=== PATIENT | female | born 1945 | race Caucasian/White ===

== ENCOUNTER 2016-05-14 06:45 | Day surgery (SDC) | payer MEDICARE, BC ==
[2016-05-13 08:30] VITALS: BMI 30.9
[2016-05-14 07:15] VITALS: RESP 20; TEMP 97.6
[2016-05-14] MEDS ORDERED: LACTATED RINGERS 1,000 ML IV ONE ×2 (07:19)
[2016-05-14 07:23] LABS: Glucose,Whole Blood 97 mg/dL (75-99)
[2016-05-14] MEDS ORDERED: fentaNYL (PF) 50 MCG/ML 2 ML AMP ONE (07:38)
[2016-05-14] MEDS ORDERED: MIDAZOLAM 2 MG/2 ML VIAL ONE (07:38)
[2016-05-14] MEDS ORDERED: PROPOFOL 10 MG/ML 20 ML VIAL IV ONE (07:38)
[2016-05-14] MEDS ORDERED: LIDOCAINE 1% INJ 10MG/ML (20 ML MDV) ONE (07:38)
--- NOTE | 2016-05-14 07:51 | P.GSHP ---
History of Present Illness H&P Date: 05/14/16 Chief Complaint: Dysphagia, history of colonic polyps, colitis This a 71-year-old female who presents today for EGD and colonoscopy. Patient has had some intermittent problems with dysphagia. She is also had a recent CAT scan which shows sigmoid colon thickening and some mild diverticulosis. She 's had issues with colonic polyps in the past. - Constitutional Constitutional: Reports as per HPI Past Medical History Past Medical History: Cancer, Diabetes Mellitus, GERD/Reflux, Hyperlipidemia, Hypertension History of Any Multi-Drug Resistant Organisms: None Reported Past Surgical History: Breast Surgery, Cholecystectomy, Heart Catheterization, Orthopedic Surgery Additional Past Surgical History / Comment(s): Bilateral knee replacement, cyst remoaval, [place] surgery, tubal and ovary removed, clear hear catherterization , breast CA with bilateral mastectomy, D&C with cyro for pre cancereous cells, palpable lymph node in supraclavicular region. Past Anesthesia/Blood Transfusion Reactions: Postoperative Nausea & Vomiting ( PONV) Past Psychological History: No Psychological Hx Reported Smoking Status: Never smoker Past Alcohol Use History: Rare Past Drug Use History: None Reported - Past Family History Mother Family Medical History: Cancer, Hyperlipidemia Medications and Allergies Home Medications Medication Instructions Recorded Confirmed Type Aspirin 81 mg PO DAILY 02/26/15 05/13/16 History Cholecalciferol [Vitamin D3] 2,000 unit PO DAILY@1200 02/26/15 05/13/16 History Cyanocobalamin [Vitamin B-12] 500 mcg PO DAILY@1200 02/26/15 05/13/16 History Furosemide [Lasix] 20 mg PO DIRECTED 02/26/15 05/13/16 History Mirabegron [Myrbetriq] 50 mg PO DAILY 02/26/15 05/13/16 History Multivitamins, Thera [Theragran] 1 each PO DAILY@1200 02/26/15 05/13/16 History Omeprazole [PriLOSEC] 20 mg PO AC-BRKFST 02/26/15 05/13/16 History Potassium Chloride [Klor-Con 20] 20 meq PO WEEKLY 02/26/15 05/13/16 History Simvastatin [Zocor] 20 mg PO HS 02/26/15 05/13/16 History Solifenacin Succinate [Vesicare] 10 mg PO DAILY 02/26/15 05/13/16 History amLODIPine [Norvasc] 10 mg PO DAILY 02/26/15 05/13/16 History metFORMIN HCL [Glucophage] 500 mg PO BID 02/26/15 05/13/16 History rOPINIRole HCL [Requip] 3 mg PO HS 02/26/15 05/13/16 History Allergies Allergy/AdvReac Type Severity Reaction Status Date / Time acetaminophen [From Lortab] AdvReac Severe Nausea & Verified 05/13/16 08:24 Vomiting hydrocodone bitartrate AdvReac Severe Nausea & Verified 05/13/16 08:24 [From Lortab] Vomiting Surgical - Exam Vital Signs Temp Pulse Resp BP Pulse Ox 97.6 F 93 20 132/80 94 L 05/14/16 07:13 05/14/16 07:13 05/14/16 07:13 05/14/16 07:13 05/14/16 07:13 - General well developed, no distress - Eyes PERRL - ENT normal pinna - Neck no masses - Respiratory normal expansion - Cardiovascular Rhythm: regular - Abdomen Abdomen: soft, non tender Assessment and Plan Plan: Dysphagia Colitis on CAT scan We'll perform EGD and colonoscopy.
--- NOTE | 2016-05-14 08:07 | P.OP ---
Date of Procedure: 05/14/16 Preoperative Diagnosis: Dysphagia Colitis Postoperative Diagnosis: Mild antral gastritis Mild diverticulosis No evidence of colitis Procedure(s) Performed: EGD Colonoscopy Anesthesia: MAC Surgeon: Channing Hahn Pathology: other (Antrum) Condition: stable Disposition: PACU Description of Procedure: The patient's placed on the endoscopy table in the lateral position. She received IV sedation. The gastroscope some placed oropharynx and passed into the esophagus and into the stomach. The scope was then placed through the pylorus. The first and second portion of the duodenum appeared normal. Scope was then brought back the antrum this. Mildly inflamed. A biopsies was performed. The scope was unretroflexed and the remainder of the stomach appeared normal. The GE junction was at 47 is. There is no evidence of hiatal hernia. The patient a previous fundal plication which appeared appropriate position. The distal esophagus appeared normal. The proximal esophagusAppeared Normal. Scope was withdrawn for patient. Next, digital rectal exam was performed which revealed no abnormalities. The flexible colonoscope was then placed patient anus and passed throughout the entire colon. The ileocecal valve was visualized. The cecum, ascending and transverse colon appeared normal. Scope was brought back into the descending and sigmoid colon and there was a few scattered diverticula. There is no evidence of colitis. The sigmoid colon appeared normal. The scope was then brought back the rectum and this appeared normal. Scope was withdrawn for patient.
[2016-05-14 08:32] VITALS: BP 113/67; PULSE 73
== END 2016-05-14 08:40 | disposition home or self-care (01) ==
LOC: ORWHC2ENDO 06:45
PROVIDERS: ATTEND Surgery
DX: K29.50 Unspecified chronic gastritis without bleeding (principal); K57.30 Diverticulosis of large intestine without perforation or abscess without bleeding; Z86.010 Personal history of colon polyps; E11.9 Type 2 diabetes mellitus without complications; Z79.84 Long term (current) use of oral hypoglycemic drugs; K21.9 Gastro-esophageal reflux disease without esophagitis; E78.5 Hyperlipidemia, unspecified; I10 Essential (primary) hypertension; Z79.82 Long term (current) use of aspirin; Z79.899 Other long term (current) drug therapy; Z88.5 Allergy status to narcotic agent
CPT/HCPCS: 88305; 88342; 45378; 43239; J2250; J2001; J3010; J2704; 99153

== ENCOUNTER 2018-12-10 12:24 | Day surgery (SDC) | payer MEDICARE ==
[2018-12-09 08:32] VITALS: BMI 31.6
[~2018-12-10 12:24] MED LIST: DEXAMETHASONE SOD PHOSPHATE 10 MG/ML 1 ML VIAL IV ONE; LACTATED RINGERS 1,000 ML IV SCH; LIDOCAINE 1% 20 ML VIAL (10MG/ML) FOR IV START INTRADERMA PRN; ONDANSETRON 4 MG/2 ML VIAL IVP ONE
[2018-12-10 12:40] VITALS: RESP 16; TEMP 97.1
[2018-12-10] MEDS ORDERED: LIDOCAINE 1% INJ 10MG/ML (20 ML MDV) ONE (13:33)
[2018-12-10] MEDS ORDERED: MIDAZOLAM 2 MG/2 ML VIAL ONE (13:33)
[2018-12-10] MEDS ORDERED: fentaNYL (PF) 50 MCG/ML 2 ML AMP ONE (13:33)
[2018-12-10] MEDS ORDERED: PROPOFOL 10 MG/ML 20 ML VIAL IV ONE (13:33)
--- NOTE | 2018-12-10 13:58 | P.PCN ---
Date of Procedure: 12/10/18 Procedure(s) Performed: Brief history: Patient is a pleasant 73-year-old white female, scheduled for an elective upper endoscopy as well as colonoscopy as a part of evaluation of long-standing history of GERD and abdominal pain for the last 2 months duration. Procedure performed: Esophagogastroduodenoscopy with biopsy Colonoscopy and snare polypectomy Preoperative diagnosis: GERD Right lower quadrant abdominal pain of 2 months duration Anesthesia: MAC Procedure: After informed consent was obtained from the patient was brought into the endoscopy unit and IV sedation was administered by anesthesia under continuous monitoring. Initially upper endoscopy was done. The Olympus GF 160 video endoscope was inserted inserted into the mouth and esophagus intubated without any difficulty and was gradually advanced into the stomach and duodenum and carefully examined. The bulb and second part of the duodenum appeared normal. The scope was then withdrawn into the stomach adequately insufflated with air and upon careful examination the antrum and body, cardia and fundus appeared normal. There were multiple small gastric polyps noted in the body the stomach which were biopsied. scope was then withdrawn into the esophagus. The GE junction was located at 40 cm to the incisors. It appeared regular with no erythema erosions or ulcerations. Rest of the esophagus appeared normal. Patient tolerated the procedure well. At this time the patient continued to remain sedation. Initial digital rectal examination was normal. Olympus CF 160 video colonoscope was then inserted into the rectum and gradually advanced to the cecum without any difficulty. Careful examination was performed as the scope was gradually being withdrawn. The prep was excellent. The cecum, ascending colon, transverse colon, appeared normal. The descending colon there was a 5 mm sessile polyp removed by snare polypectomy. In the sigmoid: There were 2 polyps measuring 5 mm in size both of which were removed by snare polypectomy. The left sided diverticulosis seen. Rest of the descending colon, sigmoid colon and rectum appeared normal. Retroflexion was performed in the rectum and no lesions were noted. Patient tolerated the procedure well. Impression: 1. Upper endoscopy revealed multiple small gastric polyps status post biopsy 2. Colonoscopy revealed: a) 5 mm descending colon polyp status post polypectomy b) 5 mm 2; polyp status post polypectomy c) scattered sigmoidal diverticulosis Recommendations: Findings of this examination were discussed with the patient as well as her family. She was advised to follow with the biopsy results. She was advised to follow with the biopsy results. If the biopsy shows an adenoma she can have a repeat colonoscopy in 5 years
[2018-12-10] MEDS ORDERED: LACTATED RINGERS 1,000 ML IV ONE (14:00)
[2018-12-10 14:23] VITALS: BP 120/78; PULSE 74
== END 2018-12-10 14:42 | disposition home or self-care (01) ==
LOC: ORWHC2ENDO 12:24
PROVIDERS: ATTEND Internal Medicine Gastroenterology
DX: K31.7 Polyp of stomach and duodenum (principal); K57.30 Diverticulosis of large intestine without perforation or abscess without bleeding; D12.4 Benign neoplasm of descending colon; K21.9 Gastro-esophageal reflux disease without esophagitis; D12.5 Benign neoplasm of sigmoid colon; Z88.5 Allergy status to narcotic agent; I10 Essential (primary) hypertension; E78.5 Hyperlipidemia, unspecified; Z85.3 Personal history of malignant neoplasm of breast; E11.9 Type 2 diabetes mellitus without complications; Z79.82 Long term (current) use of aspirin; Z79.899 Other long term (current) drug therapy; Z90.13 Acquired absence of bilateral breasts and nipples
CPT/HCPCS: 88305; 45385; 43239; J2250; J2001; J3010; J2704

== ENCOUNTER → 2019-01-03 | Outpatient (CLI) | payer MEDICARE ==
--- NOTE | 2019-01-03 22:19 | MR ---
EXAMINATION TYPE: MR lumbar spine wo con DATE OF EXAM: 01/03/2019 COMPARISON: MR 07/08/2010 HISTORY: LBP, rt side x 3 mos, no trauma/surgery TECHNIQUE: Multiplanar, multisequence images of the lumbar spine were acquired. L1-L2: Circumferential posterior disc bulge causes mild anterior mass effect on the thecal sac. No si gnificant central stenosis. No significant encroachment. L2-L3: Posterior broad-based disc bulge causes mild anterior mass effect on the thecal sac. There is facet arthropathy with hypertrophy of ligamentum flavum causing posterior lateral mass effect on the thecal sac. Circumferential extension endplate disc complex causes foraminal encroachment greater on the right than on the left. L3-L4: Facet arthropathy is noted. Posterior disc bulge causes mild anterior mass effect on the theca l sac. Circumferential extension of endplate disc complex encroaches somewhat on the foramina bilater ally. L4-L5: Listhesis contributes to cause some moderate spinal stenosis with facet arthropathy causing a trefoil appearance of the thecal sac. Listhesis contributes to cause bilateral foraminal encroachment . There is a posterior disc bulge causing mild anterior mass effect on the thecal sac. L5-S1: Facet arthropathy is noted. Minimal posterior disc bulge causes slight anterior contact with t he thecal sac and possibly proximal S1 nerve roots left greater than right. Circumferential extension endplate disc complex encroaches on the foramina right greater than left. Lumbar segments are intact. No paraspinal masses are identified. Conus medullaris has a normal appe arance. There is a minimal grade 1 anterolisthesis L4-5 which is progressed in the interval. Multilev el spondylosis is present with endplate discogenic marrow signal changes. Some mild loss of disc heig ht signal greatest at L2-3, L1-2 compatible disc desiccation and degenerative disc disease. Probable parapelvic cysts within the left kidney again noted, cortical cyst posterior aspect exophytic locatio n midpole right kidney measuring 3 cm. IMPRESSION: Degenerative disc disease, multilevel foraminal encroachment. There is some mild to moderate spinal s tenosis L4-5.
== END ==
LOC: RADMRIMAIN 14:49
PROVIDERS: ATTEND Family Medicine
DX: M48.061 Spinal stenosis, lumbar region without neurogenic claudication (principal); M51.36 Other intervertebral disc degeneration, lumbar region
CPT/HCPCS: 72148

== ENCOUNTER → 2021-05-03 | Outpatient (CLI) | payer MEDICARE ==
--- NOTE | 2021-05-03 10:17 | MR ---
EXAMINATION TYPE: MR shoulder LT wo con DATE OF EXAM: 05/03/2021 COMPARISON: X-ray 04/23/2021 HISTORY: Left shoulder pain TECHNIQUE: Multiplanar, multisequence imaging of the left shoulder is performed without contrast. FINDINGS: There is diffuse abnormal signal involving the distal margin of the supraspinatus and infra spinatus tendons compatible with complete through thickness tears and retraction to the level near th e AC joint. Subscapularis tendon is somewhat limited but grossly probably be intact. Note is made the re does appear to be atrophic change of the rotator cuff musculature. The humeral head is high riding in position and there is a area of marrow edema involving the greater tuberosity likely in the basis of either previous impaction dislocation or chronic repetitive reacti ve edema. Correlate clinically. Arthropathy of the glenohumeral joint with a small joint effusion not ed. Grossly the inferior glenohumeral ligament appears to be intact. Severe arthropathy of the AC joints impingement rotator cuff musculature. Biceps tendon is well situa uday within bicipital groove and appears to be intact and within the rotator interval extending to the biceps anchor. However, there is increased fluid surrounding the tendon as well as intrasubstance si gnal seen within the rotator interval compatible with tendinosis. Bony labrum grossly intact by non a rthrogram technique. IMPRESSION: 1. Complete through thickness tear with retraction of the supraspinatus and infraspinatus tendons. No te is made there is no significant atrophic change of the rotator cuff musculature. 2. Bicipital tendinosis. 3. Impingement secondary to AC joint arthropathy.
== END | disposition home or self-care (01) ==
LOC: RADMRIMAIN 04-26 19:42
PROVIDERS: ATTEND Orthopaedic Surgery
DX: M75.112 Incomplete rotator cuff tear or rupture of left shoulder, not specified as traumatic (principal); M67.814 Other specified disorders of tendon, left shoulder; M19.012 Primary osteoarthritis, left shoulder

== ENCOUNTER → 2021-06-13 | Day surgery (SDC) | payer MEDICARE ==
--- NOTE | 2021-06-12 20:04 | HP ---
HISTORY AND PHYSICAL DATE OF SURGERY: 06/13/2021 Minerva Stone is a 76-year-old patient seen with progressive left shoulder pain. We discussed options regarding treatment. She elected to proceed with left shoulder arthroscopy. Consent was obtained. Medical clearance was provided by Dr. Evette Landis. PAST MEDICAL HISTORY: Hypertension, hyperlipidemia, nxr-[id number]-qhlhodseh diabetes, gastroesophageal reflux disease. PAST SURGICAL HISTORY: Appendectomy, cholecystectomy, total knee arthroplasty, mastectomy, herniorrhaphy. DAILY MEDICATIONS: Aspirin, atorvastatin, losartan, metformin, metoprolol, omeprazole, vitamins. ALLERGIES: NONE. SOCIAL HISTORY: She denies current tobacco use. PHYSICAL EVALUATION OF LEFT SHOULDER: Flexion 20 degrees. Abduction is 20 degrees. External rotation is minus 20 degrees with pain and weakness. Tenderness along the anterolateral acromion and rotator cuff insertion. Impingement is positive at 40. Drop-arm sign positive. Distal neurovascular exam intact. Radiographs of the left shoulder revealed a type 3 acromion, acromioclavicular joint osteoarthritis and cystic changes of the greater tuberosity. A left shoulder MRI revealed a retracted rotator cuff tendon tear along with impingement and acromioclavicular joint osteoarthritis. IMPRESSION: 1. Left shoulder impingement with retracted rotator cuff tendon tear. 2. Left shoulder acromioclavicular joint osteoarthritis. 3. Hypertension. 4. Hyperlipidemia. 5. Byu-umffaxi-devzftzhn diabetes. PLAN: Left shoulder arthroscopy, subacromial decompression, possible arthroscopic rotator cuff repair, Skyler procedure and debridement. MMODL / IJN: [id number] /
[~2021-06-13] MED LIST changes: -DEXAMETHASONE SOD PHOSPHATE 10 MG/ML 1 ML VIAL IV ONE; +DEXAMETHASONE SOD PHOSPHATE 4 MG/ML 1 ML VIAL IV ONE; +HYDROmorphone 0.5 MG/0.5 ML SYRINGE IVP PRN; +LIDOCAINE 1% (10MG/ML) FOR IV START INTRADERMA PRN; -LIDOCAINE 1% 20 ML VIAL (10MG/ML) FOR IV START INTRADERMA PRN; +LIDOCAINE 1% INJ 10MG/ML (20 ML MDV) ONE; +MIDAZOLAM 2 MG/2 ML VIAL IV PRN; +PHENYLEPHRINE-0.9% NACL SYG 1,000 MCG/10 ML SYRINGE ONE; +PROPOFOL 10 MG/ML 20 ML VIAL IV ONE; +ROPIVACAINE 5 MG/ML 30 ML VIAL ONE; +SUCCINYLCHOLINE CHLORIDE 100 MG/5 ML SYR IV ONE; +diphenhydrAMINE 50 MG/ML 1 ML VIAL ONE; +fentaNYL (PF) 50 MCG/ML 2 ML AMP IV PRN
[2021-06-13 06:48] LABS: Glucose,Whole Blood 115 mg/dL (75-99)
[2021-06-13 07:27] VITALS: RESP 16
--- NOTE | 2021-06-13 09:29 | P.OP ---
Date of Procedure: 06/13/21 Preoperative Diagnosis: Left shoulder impingement Postoperative Diagnosis: 1. Left shoulder massive retracted rotator cuff tendon tear 2. Left shoulder acromioclavicular joint osteoarthritis 3. Left shoulder impingement 4. Left shoulder partial long head biceps tendon tear Procedure(s) Performed: 1. Left shoulder arthroscopic rotator cuff repair 2. Left shoulder arthroscopic Skyler procedure 3. Left shoulder arthroscopic subacromial decompression 4. Left shoulder arthroscopic biceps tenotomy Implants: 35.5 Arthrex swivel lock anchors 14.75 Arthrex a lock anchor Anesthesia: GETA, regional (Interscalene block) Surgeon: Calvin Weber Hair Worker #1: Haider Horowitz Estimated Blood Loss (ml): 11 Pathology: none sent Condition: stable Disposition: PACU Indications for Procedure: 76-year-old patient seen with progressive left shoulder pain. After having treatment options discussed, she elected to proceed with arthroscopy. Operative Findings: See description of procedure Description of Procedure: Patient underwent an interscalene block by department of anesthesia. The patient was then taken to the operative suite. The patient underwent a general anesthetic by the department of anesthesia. The patient was placed into a lateral position and secured. There was appropriate padding of the bony prominence. Left shoulder was then prepped and draped in normal sterile orthopedic fashion. We placed the extremity in 10 pounds of longitudinal traction. A posterior incision was now made for a posterior working portal site. The trocar and cannula were inserted into the glenohumeral joint. Arthroscopy was initiated. Spinal needle was now inserted anteriorly, to ascertain the anterior working portal site. An incision was now made in that area, a trocar was inserted followed by a probe. There was superficial fraying of the superior and anterior labrum. There were grade 2/3 chondromalacia changes diffusely about the glenohumeral joint without significant osteochondral tearing present. There was partial tearing and hyperemia of the long head biceps tendon. There was an obvious massive rotator cuff tendon tear I could clearly visualized. I performed an arthroscopic biceps tenotomy. I debrided the superficial labral tearing down to stable labral tissue. The residual labrum was probed and it was found to be stable. Instruments were now removed from glenohumeral joint. Utilizing the posterior working portal site, the trocar and cannula were inserted into the subacromial space. Arthroscopy initiated. I made an incision 2 fingerbreadths lateral to the acromion. I introduced my trocar followed by my ArthroCare ablator. I now began ablating thick subacromial bursal tissue, which exposed the undersurface of the anterior acromion. There was diminished subacromial space. There was a very prominent anterior acromion. A motorized bur was introduced and a subacromial decompression was performed. I also excised some osteophytes off the inferior aspect of the distal clavicle. The AC joint was visualized and noted to be fairly arthritic. The motorized bur was introduced in the anterior portal site and a Skyler procedure was performed without difficulty, decompressing the AC joint nicely. I turned my attention to the rotator cuff. There was a 44 .5 cm rotator cuff tear. The tendon tear was retracted but I was able to pull it over the footprint. I debrided the margins getting down to stable tendon tissue. I introduced my motorized bur and abraded the footprint area, getting some petechial bleeding. I now made an accessory portal site off the lateral aspect of the acromion. I punched 2 holes medial for medial row fixation with the assistance of Rj HERNANDEZ carefully tapping the punch with a mallet as I held the punch and the camera. I now introduced both anchors into the pre-punched holes and Rj HERNANDEZ tapped them with the mallet as I held anchors and the camera. Rj HERNANDEZ now screwed the anchors in place a while I held the anchor guide and camera. All 8 limbs of suture were now passed through good bites of rotator cuff tendon. I passed one extra everted mattress suture posteriorly were I anticipated potential dogears. I now punched 2 holes for lateral row fixation again I held the punch and camera while Rj HERNANDEZ used a mallet to tap in the punch. We now passed sutures through both anchors and individually I introduced the anchors into the pre-punch holes I held the anchor guide in position with one hand holding the camera with the other hand while Rj HERNANDEZ tensioned the sutures and screwed in the anchors one at a time. The patient's bone seemed very soft for both the medial and lateral anchors but I did feel we had overall good fixation of all 4 anchors. All residual suture limbs were now clipped. We had good compression of the tendon along the entire footprint. Instruments now removed from the portal sites. All portal sites were approximated with nylon suture. Sterile dressings were applied followed by a shoulder immobilizer. Haider HERNANDEZ assisted in this complex case. The patient was awakened, transferred to a bed, and taken to recovery in stable condition.
[2021-06-13 09:35] VITALS: TEMP 97.2
--- NOTE | 2021-06-13 10:35 | P.ANPRN ---
Procedure Note - Anesthesia - Nerve Block Performed Left Interscalene Single Time Out Performed: Yes (7050) Date of Procedure: 06/13/21 Procedure Start Time: 07:06 Procedure Stop Time: 07:11 Location of Patient: PreOp Indication: Acute Post-Operative Pain, Requested by Surgeon Specifically requested for management of pain by DrSiena: Calvin Weber Sedation Type: Sedate with meaningful contact maintained Preparation: Sterile Prep Position: Supine Catheter: None Needle Types: Pajunk Needle Gauge: 21 Ultrasound used to visualize needle placement: Yes Ultrasound used to observe medication spread: Yes Injectate: 0.5% Ropivacaine (see comment for volume) (30cc) Blood Aspirated: No Pain Paresthesia on Injection Noted: No Resistance on Injection: Normal Image Stored and Saved: Yes Events: Uneventful and Well Tolerated
[2021-06-13 10:55] VITALS: BP 121/63; PULSE 81
== END | disposition home or self-care (01) ==
LOC: OR 06:00
PROVIDERS: ATTEND Orthopaedic Surgery
DX: M75.42 Impingement syndrome of left shoulder (principal); M19.012 Primary osteoarthritis, left shoulder; M75.102 Unspecified rotator cuff tear or rupture of left shoulder, not specified as traumatic; S46.112A Strain of muscle, fascia and tendon of long head of biceps, left arm, initial encounter; M94.212 Chondromalacia, left shoulder; X58.XXXA Exposure to other specified factors, initial encounter; I10 Essential (primary) hypertension; E78.5 Hyperlipidemia, unspecified; E11.9 Type 2 diabetes mellitus without complications; K21.9 Gastro-esophageal reflux disease without esophagitis; N32.81 Overactive bladder; M51.16 Intervertebral disc disorders with radiculopathy, lumbar region; M48.061 Spinal stenosis, lumbar region without neurogenic claudication; G25.81 Restless legs syndrome; E87.6 Hypokalemia; Z79.82 Long term (current) use of aspirin; Z79.899 Other long term (current) drug therapy; Z79.84 Long term (current) use of oral hypoglycemic drugs; Z79.810 Long term (current) use of selective estrogen receptor modulators (SERMs); Z88.5 Allergy status to narcotic agent; Z85.3 Personal history of malignant neoplasm of breast; Z86.010 Personal history of colon polyps; Z90.49 Acquired absence of other specified parts of digestive tract; Z96.659 Presence of unspecified artificial knee joint; Z90.10 Acquired absence of unspecified breast and nipple; Z98.890 Other specified postprocedural states; Z97.2 Presence of dental prosthetic device (complete) (partial); Z82.49 Family history of ischemic heart disease and other diseases of the circulatory system
CPT/HCPCS: 64415; 76942; 29822; 29827; 29826; 29824; C1713 ×3; C1894; J2250; J1200; J1100; J0690; J2405; J2001; J3010; J2795; J2370; J0330; J2704

== ENCOUNTER → 2021-11-04 | Outpatient (CLI) | payer MEDICARE ==
--- NOTE | 2021-11-05 03:24 | MR ---
EXAMINATION TYPE: MR shoulder LT wo con DATE OF EXAM: 11/04/2021 COMPARISON: 05/03/2021 HISTORY: Left shoulder pain, prior surgery 06-13-21. Multiplanar multiecho imaging of the left shoulder with no contrast. There is moderate hypertrophic osteoarthritis of the glenohumeral joint. There is spurring of the hum eral head. There is moderate shoulder joint effusion. The subscapularis tendon shows some mild thicke taylor. There is some fluid around the biceps tendon. Biceps tendon appears intact. There is large rota tor cuff tear with retraction of the supraspinatus tendon. There is subacromial joint space narrowing . The infraspinatus tendon is intact. There is some fluid around the subscapularis tendon. There are pins in the humeral head. No fracture seen. The AC joint is intact. There is some spurring at the AC joint. IMPRESSION: Large rotator cuff tear with retraction of the supraspinatus tendon. Large shoulder joint effusion. H ypertrophic moderate osteoarthritis. Overall no significant change compared to previous exam.
== END | disposition home or self-care (01) ==
LOC: RADMRIMAIN 13:03
PROVIDERS: ATTEND Orthopaedic Surgery
DX: M19.012 Primary osteoarthritis, left shoulder (principal); M75.112 Incomplete rotator cuff tear or rupture of left shoulder, not specified as traumatic

== ENCOUNTER → 2022-09-22 | Outpatient (CLI) | payer MEDICARE ==
[2022-09-22 10:56] LABS: African American GFR (CKD) 61 (>60 ml/min/1.73 sqM); Blood Urea Nitrogen 22 mg/dL (7-17); Non-African American GFR(CKD) 53 (>60 ml/min/1.73 sqM)
--- NOTE | 2022-09-22 11:29 | CT ---
EXAMINATION TYPE: CT chest w con DATE OF EXAM: 09/22/2022 COMPARISON: 03/01/15 HISTORY: nodules CT DLP: 245.6 mGycm Automated exposure control for dose reduction was used. CONTRAST: CT scan of the chest is performed with IV Contrast, patient injected with 80cc mL of Isovue 300. FINDINGS: LUNGS: 8 mm right lower lobe pulmonary nodule image 44 sequence 4 is slightly smaller in size with pr ior measurement of 9 mm. And 6 mm left lower lobe pulmonary nodule image 43 sequence 4 is present pre viously with prior measurement of 5.3 mm. Mild scattered subpleural fibrosis. No new infiltrate or vo lume loss. No pleural effusion. MEDIASTINUM: There are no greater than 1 cm hilar or mediastinal lymph nodes. No pericardial effusi on is seen. Thoracic aorta is of normal caliber. The heart is not enlarged. UPPER ABDOMEN: No significant abnormality appreciated. OTHER: No additional significant abnormality is seen. IMPRESSION: 1. Nonspecific pulmonary nodularity. Stability over a 2 year timeframe should be documented radiograp hically.
== END | disposition home or self-care (01) ==
LOC: RADCTMAIN 09:59
PROVIDERS: ATTEND Family Medicine
DX: R91.8 Other nonspecific abnormal finding of lung field (principal)
CPT/HCPCS: 82565; 84520; 71260; 36415; Q9967

== ENCOUNTER 2022-10-21 18:33 | Emergency (ER) | payer MEDICARE ==
[2022-10-21] MEDS ORDERED: ACETAMINOPHEN TAB 325 MG TAB PO STA (19:12)
[2022-10-21 19:27] LABS: Basophils % (A) 0 %; Eosinophils # (A) 0.1 k/uL (0-0.7); Eosinophils % (A) 1 %; HCT 33.4 % (34.0-46.0); HGB 11.4 gm/dL (11.4-16.0); Lymphocytes # (A) 0.7 k/uL (1.0-4.8); Lymphocytes % (A) 13 %; MCH 34.3 pg (25.0-35.0); MCHC 34.2 g/dL (31.0-37.0); MCV 100.3 fL (80.0-100.0); Mean Platelet Volume 7.9; Monocytes # (A) 0.4 k/uL (0-1.0); Monocytes % (A) 6 %; Neutrophils # (A) 4.6 k/uL (1.3-7.7); Neutrophils % (A) 79 %; Platelet Count 135 k/uL (150-450); RBC 3.33 m/uL (3.80-5.40); RDW 12.8 % (11.5-15.5); WBC 5.8 k/uL (3.8-10.6)
[2022-10-21] MEDS: SODIUM CHLORIDE 0.9% 500 ML 500 ML IV SCH ×3 (19:35→20:45)
[2022-10-21 19:37] LABS: ALT 15 U/L (4-34); AST 18 U/L (14-36); African American GFR (CKD) 49 (>60 ml/min/1.73 sqM); Albumin 3.5 g/dL (3.5-5.0); Alkaline Phosphatase 128 U/L (38-126); Anion Gap 7 mmol/L; Blood Urea Nitrogen 23 mg/dL (7-17); Carbon Dioxide 27 mmol/L (22-30); Chloride 102 mmol/L (98-107); Glucose 144 mg/dL (74-99); Non-African American GFR(CKD) 42 (>60 ml/min/1.73 sqM); Sodium 136 mmol/L (137-145); Total Bilirubin 1.3 mg/dL (0.2-1.3); Total Protein 6.2 g/dL (6.3-8.2)
[2022-10-21 19:53] LABS: Partial Thromboplastin Time 23.8 sec (22.0-30.0); Prothrombin Time 10.7 sec (9.0-12.0)
--- NOTE | 2022-10-21 19:58 | XR ---
EXAMINATION TYPE: XR chest 1V portable DATE OF EXAM: 10/21/2022 7:50 PM COMPARISON: No recent prior. TECHNIQUE: XR chest 1V portable Frontal view of the chest. CLINICAL INDICATION:Female, 77 years old with history of Fever; FINDINGS: Lungs/Pleura: There is no evidence of pleural effusion, focal consolidation, or pneumothorax. Pulmonary vascularity: Unremarkable. Heart/mediastinum: Cardiomediastinal silhouette is unremarkable. Musculoskeletal: No acute osseous pathology. Left shoulder arthroplasty changes appear intact. IMPRESSION: No acute cardiopulmonary disease/process.
[2022-10-21 20:41] LABS: Appearance,Urine Cloudy (Clear); Bilirubin,Urine Negative (Negative); Blood,Urine Small (Negative); Color,Urine Light Yellow; Glucose,Urine (UA) Negative (Negative); Ketones,Urine 1+ (Negative); Leukocyte Esterase,Urine Large (Negative); Nitrite,Urine Positive (Negative); Protein,Urine Trace (Negative); Specific Gravity,Urine 1.012 (1.001-1.035); Urobilinogen,Urine <2.0 mg/dL (<2.0)
[2022-10-21 20:45] VITALS: TEMP 98.9
[2022-10-21] MEDS ORDERED: cefTRIAXone IN SWFI 1,000 MG/10 ML SYRINGE IVP STA (21:05)
--- NOTE | 2022-10-21 21:15 | ED ---
General Adult HPI - General Chief complaint: Altered Mental Status Stated complaint: AMS Time Seen by Provider: 10/21/22 18:38 Source: patient, EMS Mode of arrival: EMS - History of Present Illness Initial comments: This is a 77-year-old female with a past medical history including hypertension presents emergency Department with her family for an episode of altered mental status. It is reported the patient has been diagnosed with a UTI and was started on ciprofloxacin today as she felt as if her symptoms were not improving. After the initial dose, the patient had an episode at home with her family were she was noted to be speaking in nonsensical statements and not acting herself. The patient did return to her baseline however due to this episode, the patient was brought into the emergency department for evaluation. The patient was ANO 4 on my evaluation and neck appointment any acute pain or distress. The patient did state that she did have dysuria and increased urinary frequency consistent with her previous UTI. - Related Data Home Medications Medication Instructions Recorded Confirmed Aspirin 81 mg PO HS 02/26/15 09/05/21 Cholecalciferol [Vitamin D3] 5,000 unit PO DAILY 02/26/15 09/05/21 Omeprazole [PriLOSEC] 20 mg PO AC-BRKFST 02/26/15 09/05/21 rOPINIRole HCL [Requip] 3 mg PO HS 02/26/15 09/05/21 Atorvastatin [Lipitor] 10 mg PO DAILY 06/10/21 09/05/21 Losartan-Hctz 50-12.5 mg [Hyzaar 25 mg PO QAM 06/10/21 09/05/21 50-12.5] Metoprolol Succinate (ER) [Toprol 75 mg PO QAM 06/10/21 09/05/21 Xl] Zinc 50 mg PO DAILY 06/10/21 09/05/21 Fluticasone Propionate [Flovent 2 spray INHALATION DAILY 08/23/21 09/05/21 Diskus] Magnesium Carb,Citrate,Oxide 300 mg PO DAILY 08/23/21 09/05/21 [Magnesium Complex] Pantoprazole Sodium [Protonix] 40 mg PO DAILY 08/23/21 09/05/21 Previous Rx's Medication Instructions Recorded Cephalexin [Keflex] 500 mg PO Q6HR 1 Days #20 cap 10/21/22 Allergies Allergy/AdvReac Type Severity Reaction Status Date / Time hydrocodone bitartrate AdvReac Severe Nausea & Verified 09/05/21 10:39 [From Lortab] Vomiting Review of Systems ROS Statement: Those systems with pertinent positive or pertinent negative responses have been documented in the HPI. ROS Other: All systems not noted in ROS Statement are negative. Past Medical History Past Medical History: Blood Disorder, Cancer, Diabetes Mellitus, GERD/Reflux, GI Bleed, Hyperlipidemia, Hypertension Additional Past Medical History / Comment(s): Recent ear and sinus infection, finishing antibiotic 06/11/21. Occasional loose stools, hx of breast cancer with chemo and bilateral mastectomy 2002, palpable lymph node neck area doctor is watching. ANEMIA. BLOOD TRANSFUSION. History of Any Multi-Drug Resistant Organisms: None Reported Past Surgical History: Breast Surgery, Cholecystectomy, Heart Catheterization, Hernia Repair, Joint Replacement, Orthopedic Surgery Additional Past Surgical History / Comment(s): Bilateral knee replacements, cyst removal, [place] surgery, tubal and ovary removed, bilateral mastectomy, D&C with cyro for pre cancerous cells, varicose vein procedure. Past Anesthesia/Blood Transfusion Reactions: Postoperative Nausea & Vomiting (PONV) Additional Past Anesthesia/Blood Transfusion Reaction / Comment(s): Has had blood transfusion with no reaction, slow to wake up and PONV. Past Psychological History: No Psychological Hx Reported Smoking Status: Never smoker - Past Family History Sister(s) Family Medical History: Deep Vein Thrombosis (DVT) Mother Additional Family Medical History / Comment(s): Heart problems. General Exam Limitations: no limitations General appearance: alert, in no apparent distress, obese Head exam: Present: atraumatic, normocephalic, normal inspection Eye exam: Present: normal appearance, PERRL Pupils: Present: normal accommodation ENT exam: Present: normal exam, normal oropharynx, mucous membranes moist Neck exam: Present: normal inspection, full ROM Respiratory exam: Present: normal lung sounds bilaterally Cardiovascular Exam: Present: regular rate, normal rhythm, normal heart sounds GI/Abdominal exam: Present: soft, normal bowel sounds Extremities exam: Present: normal inspection, full ROM Back exam: Present: normal inspection, full ROM Neurological exam: Present: alert, oriented X3, CN II-XII intact Psychiatric exam: Present: normal affect, normal mood Skin exam: Present: warm, dry Course Vital Signs 10/21/22 10/21/22 10/21/22 18:35 18:57 20:45 Temperature 103.5 F H 98.9 F Pulse Rate 98 92 Respiratory 19 18 Rate Blood Pressure 147/74 155/78 O2 Sat by Pulse 95 Oximetry EKG Findings - EKG Comments: EKG Findings:: An EKG was obtained and was interpreted by myself showing a rate of 92, AR interval 116, QRS duration of 90 and QTC of 404. This EKG showed a normal sinus rhythm with no ST segment elevation or depression noted. Medical Decision Making - Medical Decision Making Was pt. sent in by a medical professional or institution (DAVID Shepard, DELINQUENCY COUNSELOR, urgent care, hospital, or senior living...) When possible be specific @ -No Did you speak to anyone other than the patient for history (EMS, parent, family, police, friend...)? What history was obtained from this source @ -Yes, patient's daughter and were at the bedside and did sit the patient did have an episode of altered mental status today. Did you review nursing and triage notes (agree or disagree)? Why? @ -I reviewed and agree with nursing and triage notes Were old charts reviewed (outside hosp., previous admission, EMS record, old EKG, old radiological studies, urgent care reports/EKG's, senior living records)? Report findings @ -No old charts were reviewed Differential Diagnosis (chest pain, altered mental status, abdominal pain women, abdominal pain men, vaginal bleeding, weakness, fever, dyspnea, syncope, headache, dizziness, GI bleed, back pain, seizure, CVA, palpatations, mental health)? @ -Continued UTI, altered mental status secondary to UTI, sepsis EKG interpreted by me (3pts min.). @ -As above X-rays interpreted by me (1pt min.). @ -None done CT interpreted by me (1pt min.). @ -None done U/S interpreted by me (1pt. min.). @ -None done What testing was considered but not performed or refused? (CT, X-rays, U/S, l abs)? Why? @ -None What meds were considered but not given or refused? Why? @ -None Did you discuss the management of the patient with other professionals (professionals i.e. DAVID Shepard, DELINQUENCY COUNSELOR, lab, RT, psych nurse, social services specialist, food services manager, teacher, credit products officer, clinical case manager)? Give summary @ -No Was smoking cessation discussed for >3mins.? @ -No Was critical care preformed (if so, how long)? @ -No Were there social determinants of health that impacted care today? How? (Homelessness, low income, unemployed, alcoholism, drug addiction, transportation, low edu. Level, literacy, decrease access to med. care, long term, rehab)? @ -No Was there de-escalation of care discussed even if they declined (Discuss DNR or withdrawal of care, Hospice)? DNR status @ -No What co-morbidities impacted this encounter? (DM, HTN, Smoking, COPD, CAD, Cance r, CVA, ARF, Chemo, Hep., AIDS, mental health diagnosis, sleep apnea, morbid obesity)? @ -Hypertension, previous UTI Was patient admitted / discharged? Hospital course, mention meds given and route, prescriptions, significant lab abnormalities, going to OR and other pertinent info. @ -The patient was seen and evaluated in the emergency department. Physical exam, the patient was resting in bed without any acute distress. Vital signs admission showed a temperature of 103.5F otherwise vital signs within normal limits. Due to this, sepsis workup was obtained however the patient had a continued UTI causing a fever without known sepsis. The patient was initially started on Macrobid but was switched to ciprofloxacin today by her primary care physician however due to the patient's continued symptoms was told to stop the ciprofloxacin and will instead be given a dose of Rocephin in the emergency department and a prescription for Keflex to be taken at home. The urine was cultured and the patient and her family were told that they would be getting a call regarding these results if there was sensitivity for the Keflex. The patient did continue to remain stable, without any further symptoms. The patient was able to tolerate by mouth. The patient's vital signs did improve and was stable for discharge home. The patient was agreeable to this plan and all depressions were answered appropriate. The patient was discharged home in stable condition with her family. Undiagnosed new problem with uncertain prognosis? @ -No Drug Therapy requiring intensive monitoring for toxicity (Heparin, Nitro, Insulin, Cardizem)? @ -No Were any procedures done? @ -No Diagnosis/symptom? @ -UTI Acute, or Chronic, or Acute on Chronic? @ -Acute Uncomplicated (without systemic symptoms) or Complicated (systemic symptoms)? @ -Uncomplicated Side effects of treatment? @ -No Exacerbation, Progression, or Severe Exacerbation? @ -No Poses a threat to life or bodily function? How? (Chest pain, [place], [place], pneumonia, PE, COPD, DKA, ARF, appy, cholecystitis, CVA, Diverticulitis, Homicidal, Suicidal, threat to staff... and all critical care pts) @ -No - Lab Data Result diagrams: 10/21/22 19:18 10/21/22 19:18 Lab Results 10/21/22 10/21/22 10/21/22 Range/Units 19:18 19:18 19:18 WBC 5.8 (3.8-10.6) k/uL RBC 3.33 L (3.80-5.40) m/uL Hgb 11.4 (11.4-16.0) gm/dL Hct 33.4 L (34.0-46.0) % MCV 100.3 H (80.0-100.0) fL MCH 34.3 (25.0-35.0) pg MCHC 34.2 (31.0-37.0) g/dL RDW 12.8 (11.5-15.5) % Plt Count 135 L (150-450) k/uL MPV 7.9 Neutrophils % 79 % Lymphocytes % 13 % Monocytes % 6 % Eosinophils % 1 % Basophils % 0 % Neutrophils # 4.6 (1.3-7.7) k/uL Lymphocytes # 0.7 L (1.0-4.8) k/uL Monocytes # 0.4 (0-1.0) k/uL Eosinophils # 0.1 (0-0.7) k/uL Basophils # 0.0 (0-0.2) k/uL PT 10.7 (9.0-12.0) sec INR 1.0 (<1.2) APTT 23.8 (22.0-30.0) sec Sodium 136 L (137-145) mmol/L Potassium 4.0 (3.5-5.1) mmol/L Chloride 102 (98-107) mmol/L Carbon Dioxide 27 (22-30) mmol/L Anion Gap 7 mmol/L BUN 23 H (7-17) mg/dL Creatinine 1.24 H (0.52-1.04) mg/dL Est GFR (CKD-EPI)AfAm 49 (>60 ml/min/1.73 sqM) Est GFR (CKD-EPI)NonAf 42 (>60 ml/min/1.73 sqM) Glucose 144 H (74-99) mg/dL Plasma Lactic Acid Jamsh[place] (0.7-2.0) mmol/L Calcium 9.0 (8.4-10.2) mg/dL Total Bilirubin 1.3 (0.2-1.3) mg/dL AST 18 (14-36) U/L ALT 15 (4-34) U/L Alkaline Phosphatase 128 H (38-126) U/L Total Protein 6.2 L (6.3-8.2) g/dL Albumin 3.5 (3.5-5.0) g/dL Urine Color Urine Appearance (Clear) Urine pH (5.0-8.0) Ur Specific [place] (1.001-1.035) Urine Protein (Negative) Urine Glucose (UA) (Negative) Urine Ketones (Negative) Urine Blood (Negative) Urine Nitrite (Negative) Urine Bilirubin (Negative) Urine Urobilinogen (<2.0) mg/dL Ur Leukocyte Esterase (Negative) Influenza Type A (PCR) (Not Detectd) Influenza Type B (PCR) (Not Detectd) RSV (PCR) (Not Detectd) SARS-CoV-2 (PCR) (Not Detectd) 10/21/22 10/21/22 10/21/22 Range/Units 19:18 19:40 19:40 WBC (3.8-10.6) k/uL RBC (3.80-5.40) m/uL Hgb (11.4-16.0) gm/dL Hct (34.0-46.0) % MCV (80.0-100.0) fL MCH (25.0-35.0) pg MCHC (31.0-37.0) g/dL RDW (11.5-15.5) % Plt Count (150-450) k/uL MPV Neutrophils % % Lymphocytes % % Monocytes % % Eosinophils % % Basophils % % Neutrophils # (1.3-7.7) k/uL Lymphocytes # (1.0-4.8) k/uL Monocytes # (0-1.0) k/uL Eosinophils # (0-0.7) k/uL Basophils # (0-0.2) k/uL PT (9.0-12.0) sec INR (<1.2) APTT (22.0-30.0) sec Sodium (137-145) mmol/L Potassium (3.5-5.1) mmol/L Chloride (98-107) mmol/L Carbon Dioxide (22-30) mmol/L Anion Gap mmol/L BUN (7-17) mg/dL Creatinine (0.52-1.04) mg/dL Est GFR (CKD-EPI)AfAm (>60 ml/min/1.73 sqM) Est GFR (CKD-EPI)NonAf (>60 ml/min/1.73 sqM) Glucose (74-99) mg/dL Plasma Lactic Acid Jamshid 1.0 (0.7-2.0) mmol/L Calcium (8.4-10.2) mg/dL Total Bilirubin (0.2-1.3) mg/dL AST (14-36) U/L ALT (4-34) U/L Alkaline Phosphatase (38-126) U/L Total Protein (6.3-8.2) g/dL Albumin (3.5-5.0) g/dL Urine Color Light Yellow Urine Appearance Cloudy H (Clear) Urine pH 6.0 (5.0-8.0) Ur Specific [place] 1.012 (1.001-1.035) Urine Protein Trace H (Negative) Urine Glucose (UA) Negative (Negative) Urine Ketones 1+ H (Negative) Urine Blood Small H (Negative) Urine Nitrite Positive H (Negative) Urine Bilirubin Negative (Negative) Urine Urobilinogen <2.0 (<2.0) mg/dL Ur Leukocyte Esterase Large H (Negative) Influenza Type A (PCR) Not Detected (Not Detectd) Influenza Type B (PCR) Not Detected (Not Detectd) RSV (PCR) Not Detected (Not Detectd) SARS-CoV-2 (PCR) Not Detected (Not Detectd) Disposition Clinical Impression: UTI (urinary tract infection) Disposition: HOME SELF-CARE Condition: Stable Instructions (If sedation given, give patient instructions): Urinary Tract Infection in Women (DC) Prescriptions: Cephalexin [Keflex] 500 mg PO Q6HR 1 Days #20 cap Is patient prescribed a controlled substance at d/c from ED?: No Referrals: Evette Landis DO [Primary Care Provider] - 1-2 days Time of Disposition: 20:30
[2022-10-21 21:24] VITALS: BP 135/59; PULSE 75; RESP 16
[2022-10-21 23:30] LABS: WBC,Urine 100 /hpf (0-5)
[2022-10-21 23:31] LABS: Bacteria,Urine Rare /hpf
== END 2022-10-21 21:45 | disposition home or self-care (01) ==
LOC: EC 18:33
DX: N39.0 Urinary tract infection, site not specified (principal); K21.9 Gastro-esophageal reflux disease without esophagitis; E11.9 Type 2 diabetes mellitus without complications; E78.5 Hyperlipidemia, unspecified; I10 Essential (primary) hypertension; Z88.5 Allergy status to narcotic agent; Z79.82 Long term (current) use of aspirin; Z79.51 Long term (current) use of inhaled steroids; Z79.899 Other long term (current) drug therapy; Z20.822 Contact with and (suspected) exposure to COVID-19
CPT/HCPCS: 36415; 93005; 80053; 83605; 85025; 85610; 85730; 81001; 87040; 87086; 87636; 71045; 99285; 96374; 96361; J0696

== ENCOUNTER 2024-04-30 17:02 | Observation (INO) | payer MEDICARE ==
--- NOTE | 2024-04-30 17:51 | ED ---
Chest Pain HPI - General Chief Complaint: Chest Pain Stated Complaint: chest pain Time Seen by Provider: 04/30/24 17:12 Source: patient Mode of arrival: ambulatory Limitations: no limitations - History of Present Illness Initial Comments: 79-year-old female with past medical history of SVT, hypertension, emergency department with rapid heart rate. States that for the past 2 days she has had intermittent rapid heart rate with associated shortness of breath. Patient does admit to a history of SVT. Patient also admits to a history of CHF. She currently does not take any Lasix. Patient denies history of coronary disease. No fevers, chills or cough. Patient does not take any blood thinners. No calf pain or swelling. No other alleviating, precipitating modifying factors - Related Data Home Medications Medication Instructions Recorded Confirmed Aspirin 81 mg PO HS 02/26/15 04/30/24 rOPINIRole HCL [Requip] 3 mg PO HS 02/26/15 04/30/24 Atorvastatin [Lipitor] 10 mg PO DAILY 06/10/21 04/30/24 Zinc 50 mg PO DAILY 06/10/21 04/30/24 Pantoprazole Sodium [Protonix] 40 mg PO HS 08/23/21 04/30/24 Cholecalciferol [Vitamin D3 (25 25 mcg PO DAILY 04/30/24 04/30/24 Mcg = 1000 Iu)] Fluticasone Nasal [place] [Flonase 2 spray EA NOSTRIL DAILY 04/30/24 04/30/24 Nasal [place]] Magnesium Oxide [Mag-Oxide] 200 mg PO HS 04/30/24 04/30/24 Meclizine [Antivert] 25 mg PO TID PRN 04/30/24 04/30/24 Metoprolol Succinate (ER) [Toprol 50 mg PO DAILY 04/30/24 04/30/24 XL] Tamsulosin [Flomax] 0.4 mg PO HS 04/30/24 04/30/24 Vibegron [Gemtesa] 75 mg PO DAILY 04/30/24 05/02/24 metFORMIN HCL 500 mg PO HS 04/30/24 05/01/24 Previous Rx's Medication Instructions Recorded Flecainide [Tambocor] 50 mg PO Q12HR #60 tab 05/03/24 Losartan [Cozaar] 50 mg PO DAILY #30 tab 05/03/24 Allergies Allergy/AdvReac Type Severity Reaction Status Date / Time hydrocodone bitartrate AdvReac Severe Nausea & Verified 04/30/24 19:43 [From Lortab] Vomiting Review of Systems ROS Statement: Those systems with pertinent positive or pertinent negative responses have been documented in the HPI. ROS Other: All systems not noted in ROS Statement are negative. Past Medical History Past Medical History: Blood Disorder, Cancer, Diabetes Mellitus, GERD/Reflux, GI Bleed, Hyperlipidemia, Hypertension Additional Past Medical History / Comment(s): Recent ear and sinus infection, finishing antibiotic 06/11/21. Occasional loose stools, hx of breast cancer with chemo and bilateral mastectomy 2002, palpable lymph node neck area doctor is watching. ANEMIA. BLOOD TRANSFUSION. History of Any Multi-Drug Resistant Organisms: None Reported Past Surgical History: Breast Surgery, Cholecystectomy, Heart Catheterization, Hernia Repair, Joint Replacement, Orthopedic Surgery Additional Past Surgical History / Comment(s): Bilateral knee replacements, cyst removal, [place] surgery, tubal and ovary removed, bilateral mastectomy, D&C with cyro for pre cancerous cells, varicose vein procedure. Past Anesthesia/Blood Transfusion Reactions: Postoperative Nausea & Vomiting (PONV) Additional Past Anesthesia/Blood Transfusion Reaction / Comment(s): Has had blood transfusion with no reaction, slow to wake up and PONV. Past Psychological History: No Psychological Hx Reported Smoking Status: Never smoker Past Alcohol Use History: Rare Past Drug Use History: None Reported - Past Family History Sister(s) Family Medical History: Deep Vein Thrombosis (DVT) Mother Additional Family Medical History / Comment(s): Heart problems. General Exam Limitations: no limitations General appearance: alert, in no apparent distress Head exam: Present: atraumatic, normocephalic, normal inspection Eye exam: Present: normal appearance, PERRL, EOMI. Absent: scleral icterus, conjunctival injection, periorbital swelling ENT exam: Present: normal exam, mucous membranes moist Neck exam: Present: normal inspection. Absent: tenderness, meningismus, lymphadenopathy Respiratory exam: Present: normal lung sounds bilaterally. Absent: respiratory distress, wheezes, rales, rhonchi, stridor Cardiovascular Exam: Present: regular rate, normal rhythm, normal heart sounds. Absent: systolic murmur, diastolic murmur, rubs, gallop, clicks GI/Abdominal exam: Present: soft, normal bowel sounds. Absent: distended, tenderness, guarding, rebound, rigid Extremities exam: Present: normal inspection, full ROM, normal capillary refill. Absent: tenderness, pedal edema, joint swelling, calf tenderness Back exam: Present: normal inspection Neurological exam: Present: alert, oriented X3, CN II-XII intact Psychiatric exam: Present: normal affect, normal mood Skin exam: Present: warm, dry, intact, normal color. Absent: rash Course Vital Signs 04/30/24 04/30/24 04/30/24 17:05 19:21 19:56 Temperature 98.9 F Pulse Rate 79 77 73 Pulse Rate [ Pulse Oximetery ] Respiratory 20 16 16 Rate Blood Pressure 172/81 192/88 193/76 Blood Pressure [Right Arm] O2 Sat by Pulse 96 98 98 Oximetry 04/30/24 04/30/24 04/30/24 20:00 20:31 20:39 Temperature 97.9 F 98.4 F Pulse Rate 72 Pulse Rate [ 72 Pulse Oximetery ] Respiratory 18 16 Rate Blood Pressure 169/72 Blood Pressure 166/82 [Right Arm] O2 Sat by Pulse 100 96 Oximetry Chest Pain MDM - MDM Was pt. sent in by a medical professional or institution (, PA, INK MAKER, urgent care, hospital, or skilled nursing...) When possible be specific @ -No Did you speak to anyone other than the patient for history (EMS, parent, family, police, friend...)? What history was obtained from this source @ -Spoke with family for history Did you review nursing and triage notes (agree or disagree)? Why? @ -I reviewed and agree with nursing and triage notes Were old charts reviewed (outside hosp., previous admission, EMS record, old EKG, old radiological studies, urgent care reports/EKG's, skilled nursing records)? Report findings @ -No old charts were reviewed Differential Diagnosis (chest pain, altered mental status, abdominal pain women, abdominal pain men, vaginal bleeding, weakness, fever, dyspnea, syncope, heada miranda, dizziness, GI bleed, back pain, seizure, CVA, palpatations, mental health, musculoskeletal)? @ -Differential Chest Pain: Stable Angina, Unstable Angina, STEMI, NSTEMI Aortic Dissection, Pneumothorax, Musculoskeletal, Esophageal Spasm GERD, Cholecystitis, Pancreatitis, Zoster, this is not meant to be an all-inclusive list. EKG interpreted by me (3pts min.). @ -Yes and demonstrates sinus rhythm with a rate of 69. CA interval 172. QRS 93. QTc of 428. No acute ST segment elevations or depressions X-rays interpreted by me (1pt min.). @ -S and demonstrates no acute process CT interpreted by me (1pt min.). @ -None done U/S interpreted by me (1pt. min.). @ -None done What testing was considered but not performed or refused? (CT, X-rays, U/S, labs)? Why? @ -None What meds were considered but not given or refused? Why? @ -None Did you discuss the management of the patient with other professionals (professionals i.e. , PA, INK MAKER, lab, RT, psych nurse, social media project manager, robotic toy inventor, teacher, retirement officer, field nurse case manager)? Give summary @ -Spoke with Sofya from [facility] for admission Was smoking cessation discussed for >3mins.? @ -No Was critical care preformed (if so, how long)? @ -No Were there social determinants of health that impacted care today? How? (Homelessness, low income, unemployed, alcoholism, drug addiction, transportation, low edu. Level, literacy, decrease access to med. care, group home, rehab)? @ -No Was there de-escalation of care discussed even if they declined (Discuss DNR or withdrawal of care, Hospice)? DNR status @ -No What co-morbidities impacted this encounter? (DM, HTN, Smoking, COPD, CAD, Cancer, CVA, ARF, Chemo, Hep., AIDS, mental health diagnosis, sleep apnea, morbid obesity)? @ -SVT, congestive heart failure Was patient admitted / discharged? Hospital course, mention meds given and route, prescriptions, significant lab abnormalities, going to OR and other pertinent info. @ -Upon arrival patient seen and evaluated in bed 28. Thorough history and physical exam was performed. Patient placed on continuous pulse ox and cardiac monitoring. Twelve-lead EKG is obtained. Laboratory studies are conducted. Chest x-ray was performed. Results are discussed with patient. I feel the patient would benefit from overnight cardiac monitoring as well as monitoring of her troponins. Patient was agreeable to this. Spoke with Sofya from [facility] for the admission Undiagnosed new problem with uncertain prognosis? @ -No Drug Therapy requiring intensive monitoring for toxicity (Heparin, Nitro, Insulin, Cardizem)? @ -No Were any procedures done? @ -No Diagnosis/symptom? @ -Acute palpitations, acute chest pain, history of SVT Acute, or Chronic, or Acute on Chronic? @ -Acute Uncomplicated (without systemic symptoms) or Complicated (systemic symptoms)? @ -Complicated Side effects of treatment? @ -No Exacerbation, Progression, or Severe Exacerbation? @ -No Poses a threat to life or bodily function? How? (Chest pain, [place], [place], pneumonia, PE, COPD, DKA, ARF, appy, cholecystitis, CVA, Diverticulitis, Homicidal, Suicidal, threat to staff... and all critical care pts) @ -No Disposition Clinical Impression: Chest pain, Palpitations, Hx of supraventricular tachycardia Disposition: ADMITTED IP TO THIS [facility] Condition: Stable Is patient prescribed a controlled substance at d/c from ED?: No Time of Disposition: 19:22 Decision to Admit Reason: Admit from EC Decision Date: 04/30/24 Decision Time: 19:22
[2024-04-30 18:05] LABS: Basophils % (A) 0 %; Eosinophils # (A) 0.2 k/uL (0-0.7); Eosinophils % (A) 3 %; HCT 36.7 % (34.0-46.0); HGB 11.8 gm/dL (11.4-16.0); Hypochromasia Slight; Lymphocytes # (A) 2.5 k/uL (1.0-4.8); Lymphocytes % (A) 43 %; MCH 32.6 pg (25.0-35.0); MCHC 32.1 g/dL (31.0-37.0); MCV 101.5 fL (80.0-100.0); Macrocytosis Slight; Mean Platelet Volume 7.5; Monocytes # (A) 0.3 k/uL (0-1.0); Monocytes % (A) 6 %; Neutrophils # (A) 2.7 k/uL (1.3-7.7); Neutrophils % (A) 46 %; Platelet Count 223 k/uL (150-450); RBC 3.62 m/uL (3.80-5.40); RDW 13.3 % (11.5-15.5); WBC 5.8 k/uL (3.8-10.6)
[2024-04-30 18:13] LABS: Partial Thromboplastin Time 22.9 sec (22.0-30.0); Prothrombin Time 11.4 sec (10.0-12.5)
[2024-04-30 18:14] LABS: Potassium 4.4 mmol/L (3.5-5.1)
[2024-04-30 18:15] LABS: ALT 19 U/L (4-34); AST 24 U/L (14-36); African American GFR (CKD) 54 (>60 ml/min/1.73 sqM); Albumin 4.1 g/dL (3.5-5.0); Alkaline Phosphatase 117 U/L (38-126); Anion Gap 9 mmol/L; Blood Urea Nitrogen 28 mg/dL (7-17); Carbon Dioxide 26 mmol/L (22-30); Chloride 105 mmol/L (98-107); Glucose 143 mg/dL (74-99); Magnesium 1.8 mg/dL (1.6-2.3); Non-African American GFR(CKD) 47 (>60 ml/min/1.73 sqM); Sodium 140 mmol/L (137-145); Total Bilirubin 0.9 mg/dL (0.2-1.3); Total Protein 6.7 g/dL (6.3-8.2)
[2024-04-30 18:23] LABS: NT-Pro-B-Type Natriuretic Pept 1330 pg/mL
--- NOTE | 2024-04-30 18:28 | XR ---
EXAMINATION TYPE: XR chest 2V DATE OF EXAM: 04/30/2024 6:02 PM COMPARISON: Chest radiograph 10/21/2022. CLINICAL INDICATION: Female, 79 years old with history of Chest Pain; [facility] TECHNIQUE: XR chest 2V Frontal and lateral views of the chest. FINDINGS: Lungs/Pleura: There is no evidence of pleural effusion, focal consolidation, or pneumothorax. Asymme tric elevation of the right hemidiaphragm. Pulmonary vascularity: Unremarkable. Heart/mediastinum: Cardiomediastinal silhouette is unremarkable. Musculoskeletal: No acute osseous pathology. Left shoulder arthroplasty. Other findings: None IMPRESSION: No acute cardiopulmonary disease/process. [facility], , 04/30/2024 6:26 PM
[2024-04-30] MEDS ORDERED: NALOXONE 0.4 MG/ML 1 ML VIAL IV PRN (19:22)
[2024-04-30] MEDS: FUROSEMIDE 10 MG/ML 4 ML VIAL IV STA (19:32)
[2024-04-30] MEDS: LABETALOL 5 MG/ML VIAL MDV IVP STA (20:07)
[2024-04-30] MEDS ORDERED: MECLIZINE 25 MG TAB PO PRN (21:11)
[2024-04-30] MEDS ORDERED: DEXTROSE 50% SYRINGE 50 ML IVP PRN ×2 (21:13)
[2024-04-30] MEDS: LOSARTAN 50 MG TAB PO SCH (21:40)
[2024-04-30] MEDS: TAMSULOSIN 0.4 MG CAP.ER.24H PO SCH (21:40)
[2024-05-01 05:42] LABS: Glucose,Whole Blood 114 mg/dL (70-110)
[2024-05-01] MEDS: INSULIN ASPART (NovoLOG) 100 UNIT/ML VIAL SQ SCH (05:57)
[2024-05-01] MEDS: PANTOPRAZOLE 40 MG TABLET PO SCH (06:22)
[2024-05-01] MEDS: ATORVASTATIN 10 MG TAB PO SCH (07:35)
[2024-05-01] MEDS: METOPROLOL SUCCINATE (ER) 50 MG TAB.ER.24H PO SCH (07:35)
[2024-05-01] MEDS: FUROSEMIDE 20 MG TAB PO SCH (07:36)
[2024-05-01] MEDS: CHOLECALCIFEROL 25 MCG (1000 IU) TABLET PO SCH (07:36)
[2024-05-01] MEDS: FLUTICASONE NASAL 50MCG/SPRAY 16GM BTL EA NOSTRIL SCH (07:36)
[2024-05-01 11:12] LABS: Basophils # (A) 0.02 X 10*3/uL (0.00-0.10); Basophils % (A) 0.3 %; Eosinophils # (A) 0.23 X 10*3/uL (0.04-0.35); Eosinophils % (A) 3.5 %; HCT 37.9 % (37.2-46.3); HGB 11.5 g/dL (12.0-15.0); Lymphocytes # (A) 2.25 X 10*3/uL (0.90-5.00); Lymphocytes % (A) 34.7 %; MCH 31.3 pg (27.0-32.0); MCHC 30.3 g/dL (32.0-37.0); MCV 103.3 FL (80.0-97.0); Mean Platelet Volume 10.2 FL (9.5-12.2); Monocytes # (A) 0.63 X 10*3/uL (0.20-1.00); Monocytes % (A) 9.7 %; NRBC Per 100 WBC 0 X 10*3/uL (0.00-0.01); Neutrophils # (A) 3.34 X 10*3/uL (1.80-7.70); Neutrophils % (A) 51.5 %; Platelet Count 217 X 10*3/uL (140-440); RBC 3.67 X 10*6/uL (4.10-5.20); RDW 13.6 % (11.5-14.5); WBC 6.49 X 10*3/uL (4.50-10.00)
[2024-05-01 11:18] LABS: BUN/Creat Ratio 23.92 Ratio (12.00-20.00); Blood Urea Nitrogen 28.7 mg/dL (9.0-27.0); Glucose 140 mg/dL (70-110)
[2024-05-01 11:19] LABS: Calcium 9.8 mg/dL (8.7-10.3); Carbon Dioxide 25.9 mmol/L (21.6-31.8); Chloride 105 mmol/L (96-109); Potassium 3.8 mmol/L (3.5-5.5); Sodium 144 mmol/L (135-145)
[2024-05-01 12:26] LABS: Glucose,Whole Blood 127 mg/dL (70-110)
[2024-05-01 17:19] LABS: Glucose,Whole Blood 91 mg/dL (70-110)
--- NOTE | 2024-05-01 17:45 | P.CRDCN ---
History of Present Illness Consult date: 05/01/24 History of present illness: The patient is a pleasant 79-year-old female patient with a past medical history significant for diabetes and hypertension and dyslipidemia and history of SVT as well as history of heart failure of unknown etiology, presented to the hospital complaining of palpitations/heart racing. She was in her usual state of health till few days ago when she started experiencing intermittent episodes of palpitation/heart racing with no associated dizziness or lightheadedness or presyncope or syncope or any anginal chest pain or chest discomfort or shortness of breath. She presented to the hospital for further evaluation. She underwent an EKG which showed sinus mechanism. She was experiencing intermittent episode of palpitation in the hospital and the telemetry tracing showed narrow complex tachycardia likely consistent with SVT. She is known to have SVT and she has been on Toprol-XL at 50 mg p.o. daily and she has been compliant with this. In the past she was on 100 mg p.o. daily but that was lowered to 50 mg p.o. daily according to her about few years ago. The last time she had episode of SVT was about 2 years ago. The troponin was checked and came in to be unremarkable with the chest x-ray did not show any acute abnormalities. SH came in to be unremarkable as well. The physical examination is remarkable for regular rhythm with a significant systolic murmur at the right and left upper sternal border as well as apical area with decrease in the intensity of S2. Assessment Intermittent episode of narrow complex tachycardia consistent with SVT Palpitations/heart racing likely secondary to SVT Sleep apnea has been compliant in using the CPAP machine Significant systolic murmur on examination Multiple comorbid conditions including diabetes and hypertension and dyslipidemia and heart failure Plan Increase the dose of beta-carla with Toprol-XL to 75 mg p.o. daily Lowered the dose of losartan in the light of marginally low blood pressure Obtain an echocardiogram with Doppler Follow-up with the patient Past Medical History Past Medical History: Blood Disorder, Cancer, Heart Failure, Diabetes Mellitus, GERD/Reflux, GI Bleed, Hyperlipidemia, Hypertension, Pulmonary Embolus (PE), Sleep Apnea/CPAP/BIPAP, Supraventricular Tachycardia (SVT) Additional Past Medical History / Comment(s): ANEMIA. BLOOD TRANSFUSION. lung nodule being monitored since 2016. Vertigo. History of Any Multi-Drug Resistant Organisms: None Reported Past Surgical History: Breast Surgery, Cholecystectomy, Heart Catheterization, Hernia Repair, Joint Replacement, Orthopedic Surgery Additional Past Surgical History / Comment(s): Bilateral knee replacements, cyst removal, [place] surgery, tubal and ovary removed, bilateral mastectomy, D&C with cyro for pre cancerous cells, varicose vein procedure. Left shoulder repair X2. Past Anesthesia/Blood Transfusion Reactions: Postoperative Nausea & Vomiting (PONV) Additional Past Anesthesia/Blood Transfusion Reaction / Comment(s): Has had blood transfusion with no reaction, slow to wake up and PONV. Past Psychological History: No Psychological Hx Reported Smoking Status: Never smoker Past Alcohol Use History: Rare Past Drug Use History: None Reported - Past Family History Sister(s) Family Medical History: Deep Vein Thrombosis (DVT) Mother Additional Family Medical History / Comment(s): Heart problems. Medications and Allergies Home Medications Medication Instructions Recorded Confirmed Type Aspirin 81 mg PO HS 02/26/15 04/30/24 History rOPINIRole HCL [Requip] 3 mg PO HS 02/26/15 04/30/24 History Atorvastatin [Lipitor] 10 mg PO DAILY 06/10/21 04/30/24 History Zinc 50 mg PO DAILY 06/10/21 04/30/24 History Pantoprazole Sodium [Protonix] 40 mg PO HS 08/23/21 04/30/24 History Cholecalciferol [Vitamin D3 (25 25 mcg PO DAILY 04/30/24 04/30/24 History Mcg = 1000 Iu)] Fluticasone Nasal [place] [Flonase 2 spray EA NOSTRIL DAILY 04/30/24 04/30/24 History Nasal [place]] Losartan Potassium 100 mg PO DAILY 04/30/24 05/01/24 History Magnesium Oxide [Mag-Oxide] 200 mg PO HS 04/30/24 04/30/24 History Meclizine [Antivert] 25 mg PO TID PRN 04/30/24 04/30/24 History Metoprolol Succinate (ER) [Toprol 50 mg PO DAILY 04/30/24 04/30/24 History Xl] Tamsulosin [Flomax] 0.4 mg PO HS 04/30/24 04/30/24 History Vibegron [Gemtesa] 75 mg PO DIRECTED 04/30/24 04/30/24 History metFORMIN HCL 500 mg PO HS 04/30/24 05/01/24 History Allergies Allergy/AdvReac Type Severity Reaction Status Date / Time hydrocodone bitartrate AdvReac Severe Nausea & Verified 04/30/24 19:43 [From Lortab] Vomiting Physical Exam Vitals: Vital Signs Temp Pulse Pulse Resp BP BP BP 05/01/24 14:54 98.0 F 83 16 105/67 05/01/24 10:26 77 137/80 05/01/24 07:06 98.0 F 75 16 127/74 05/01/24 01:22 97.8 F 67 18 107/70 04/30/24 20:39 98.4 F 04/30/24 20:31 72 16 169/72 04/30/24 20:00 97.9 F 72 18 166/82 04/30/24 19:56 73 16 193/76 04/30/24 19:21 77 16 192/88 Pulse Ox 05/01/24 14:54 100 05/01/24 10:26 97 05/01/24 07:06 96 05/01/24 01:22 96 04/30/24 20:39 04/30/24 20:31 96 04/30/24 20:00 100 04/30/24 19:56 98 04/30/24 19:21 98 Intake and Output 05/01/24 05/01/24 05/01/24 06:59 14:59 22:59 Intake Total 118 Output Total 1250 340 200 Balance -1250 -222 -200 Intake: Oral 118 Output: Urine 1250 340 200 Other: Voiding Method Toilet # Voids 1 1 Weight 77.4 kg Results 05/01/24 02:49 05/01/24 02:49 Cardiac Enzymes 04/30/24 04/30/24 04/30/24 Range/Units 17:50 17:50 20:40 AST 24 (14-36) U/L Troponin I <0.012 <0.012 (0.000-0.034) ng/mL 04/30/24 Range/Units 23:34 AST (14-36) U/L Troponin I <0.012 (0.000-0.034) ng/mL Coagulation 04/30/24 Range/Units 17:50 PT 11.4 (10.0-12.5) sec APTT 22.9 (22.0-30.0) sec CBC 04/30/24 05/01/24 Range/Units 17:50 02:49 WBC 5.8 6.49 (3.8-10.6) k/uL RBC 3.62 L 3.67 L (3.80-5.40) m/uL Hgb 11.8 11.5 L (11.4-16.0) gm/dL Hct 36.7 37.9 (34.0-46.0) % Plt Count 223 217 (150-450) k/uL Comprehensive Metabolic Panel 04/30/24 05/01/24 Range/Units 17:50 02:49 Sodium 140 144 (137-145) mmol/L Potassium 4.4 3.8 (3.5-5.1) mmol/L Chloride 105 105 (98-107) mmol/L Carbon Dioxide 26 25.9 (22-30) mmol/L BUN 28 H 28.7 H (7-17) mg/dL Creatinine 1.12 H 1.2 (0.52-1.04) mg/dL Glucose 143 H 140 H (74-99) mg/dL Calcium 10.0 9.8 (8.4-10.2) mg/dL AST 24 (14-36) U/L ALT 19 (4-34) U/L Alkaline Phosphatase 117 (38-126) U/L Total Protein 6.7 (6.3-8.2) g/dL Albumin 4.1 (3.5-5.0) g/dL Current Medications Generic Name Dose Route Start Last Admin Trade Name Freq PRN Reason Stop Dose Admin Aspirin 81 mg 05/01/24 21:00 Aspirin 81 Mg PO HS PHILIPPE Atorvastatin Calcium 10 mg 05/01/24 09:00 05/01/24 07:35 Atorvastatin 10 Mg Tab PO 10 mg DAILY PHILIPPE Administration Cholecalciferol 25 mcg 05/01/24 09:00 05/01/24 07:36 Cholecalciferol 25 Mcg (1000 Iu) Tablet PO 25 mcg DAILY PHILIPPE Administration Dextrose/Water 25 ml 04/30/24 21:13 Dextrose 50% Syringe 50 Ml IVP PER PROTOCOL PRN Hypoglycemia Protocol Dextrose/Water 50 ml 04/30/24 21:13 Dextrose 50% Syringe 50 Ml IVP PER PROTOCOL PRN Hypoglycemia Protocol Fluticasone Propionate 2 spray 05/01/24 09:00 05/01/24 07:36 Fluticasone Nasal 50mcg/[place] 16gm Btl EA NOSTRIL Not Given DAILY PHILIPPE Furosemide 20 mg 05/01/24 09:00 05/01/24 07:36 Furosemide 20 Mg Tab PO 20 mg DAILY PHILIPPE Administration Insulin Aspart 0 unit 05/01/24 07:30 05/01/24 12:42 Insulin Aspart (Novolog) 100 Unit/Ml Vial SQ Not Given ACHS PHILIPPE Protocol Losartan Potassium 100 mg 04/30/24 21:15 05/01/24 07:36 Losartan 50 Mg Tab PO 100 mg DAILY PHILIPPE Administration Magnesium Oxide 200 mg 05/01/24 21:00 Magnesium Oxide 400 Mg Tab PO HS PHILIPPE Meclizine HCl 25 mg 04/30/24 21:11 Meclizine 25 Mg Tab PO TID PRN Vertigo Metoprolol Succinate 50 mg 05/01/24 09:00 05/01/24 07:35 Metoprolol Succinate (Er) 50 Mg Tab.Er.24h PO 50 mg DAILY PHILIPPE Administration Naloxone HCl 0.2 mg 04/30/24 19:22 Naloxone 0.4 Mg/Ml 1 Ml Vial IV Q2M PRN Opioid Reversal Pantoprazole Sodium 40 mg 05/01/24 07:30 05/01/24 06:22 Pantoprazole 40 Mg Tablet PO 40 mg DAILY@0730 PHILIPPE Administration Ropinirole HCl 3 mg 04/30/24 21:15 04/30/24 21:40 Ropinirole Hcl 1 Mg Tab PO 3 mg HS PHILIPPE Administration Tamsulosin HCl 0.4 mg 04/30/24 21:15 04/30/24 21:40 Tamsulosin 0.4 Mg Cap.Er.24h PO 0.4 mg HS PHILIPPE Administration Zinc Sulfate 220 mg 05/02/24 09:00 Zinc Sulfate 220 Mg Cap PO DAILY PHILIPPE Intake and Output 05/01/24 05/01/24 05/01/24 06:59 14:59 22:59 Intake Total 118 Output Total 1250 340 200 Balance -1250 -222 -200 Intake: Oral 118 Output: Urine 1250 340 200 Other: Voiding Method Toilet # Voids 1 1 Weight 77.4 kg 05/01/24 02:49 05/01/24 02:49
[2024-05-01 20:11] LABS: Glucose,Whole Blood 154 mg/dL (70-110)
[2024-05-01] MEDS: MAGNESIUM OXIDE 400 MG TAB PO SCH (20:39)
[2024-05-01] MEDS: ASPIRIN 81 MG PO SCH (20:39)
--- NOTE | 2024-05-02 02:28 | HP ---
HISTORY AND PHYSICAL CHIEF COMPLAINT: Chest pain and palpitation. HISTORY OF PRESENT ILLNESS: This is a 79-year-old woman with a past medical history of multiple medical problems including history of CHF, hypertension, hyperlipidemia, history of pulmonary embolism, complaining of anterior precordial chest pain. The patient also had palpitations. The patient had multiple episodes of SVT while in the hospital. The patient closely monitored. There is no history of fever, rigors, or chills. The initial labs showed normal troponins. PAST MEDICAL HISTORY: History of CHF, GERD, hyperlipidemia, hypertension. Rest of the history and rest of the chart is also reviewed. HOME MEDICATIONS: Metformin. Dose and rest of medications reviewed. ALLERGIES: Lortab. FAMILY HISTORY: History of DVT, heart problems. SOCIAL HISTORY: No smoke or alcohol. REVIEW OF SYSTEMS: Fourteen-point review of systems negative except as mentioned earlier. PHYSICAL EXAMINATION: VITAL SIGNS: Pulse 83, blood pressure 100/62, respirations 16. HEENT: Conjunctivae normal. NECK: No JVD. CARDIOVASCULAR: S1, S2, tachycardia. RESPIRATIONS: Few scattered rhonchi. ABDOMEN: Soft, nontender. LABORATORY DATA: Noted otherwise. Chest x-ray which I reviewed personally showed no acute abnormality. Otherwise, EKG available in the chart shows abdominal otherwise normal sinus rhythm. ASSESSMENT: 1. Chest pain, possible unstable angina. 2. Recurrent supraventricular tachycardia. 3. History of congestive heart failure. 4. Gastroesophageal reflux disease. 5. Hypertension. 6. Hyperlipidemia. 7. History of pulmonary embolism. 8. History of cholecystectomy. RECOMMENDATION: This is a 79-year-old woman, who presented with multiple complex medical issues. I would recommend to continue the current symptomatic treatment. Resume the home medications. Also, recommend D-dimer. D-dimer is elevated. I would recommend CT angio of the chest. Prognosis guarded because of multiple complex medical issues. Home medications will be continued. Further recommendations to follow. MMODL / IJN: [id number] / [facility]
[2024-05-02 06:11] LABS: Glucose,Whole Blood 124 mg/dL (70-110)
[2024-05-02] MEDS ORDERED: ceFAZolin 1 GM in SODIUM CHLORIDE 0.9% IRRIG BTL 250 ML IRRIGATION PRN (07:00)
[2024-05-02] MEDS: ZINC SULFATE 220 MG CAP PO SCH (08:41)
[2024-05-02] MEDS: METOPROLOL SUCCINATE (ER) 25 MG TAB.ER.24H PO SCH (08:41)
[2024-05-02] MEDS: LOSARTAN 50 MG TAB PO SCH (08:41)
[2024-05-02 09:21] LABS: Glucose,Whole Blood 136 mg/dL (70-110)
[2024-05-02 09:44] LABS: INR 0.9 (<1.2); Prothrombin Time 10.5 sec (10.0-12.5)
[2024-05-02 09:57] LABS: African American GFR (CKD) 56 (>60 ml/min/1.73 sqM); Anion Gap 9 mmol/L; Blood Urea Nitrogen 33 mg/dL (7-17); Carbon Dioxide 29 mmol/L (22-30); Chloride 99 mmol/L (98-107); Glucose 144 mg/dL (74-99); Non-African American GFR(CKD) 48 (>60 ml/min/1.73 sqM); Potassium 4.7 mmol/L (3.5-5.1); Sodium 137 mmol/L (137-145)
[2024-05-02] MEDS: IV FLUID CONTINUATION 950 ML IV ONE (10:00)
[2024-05-02] MEDS: LIDOCAINE 2% INJ 20 MG/ML SQ ONE (10:06)
[2024-05-02] MEDS: SODIUM CHLORIDE 0.9% 1,000 ML IV SCH ×2 (10:48→10:55)
[2024-05-02] MEDS: FLECAINIDE 50 MG TAB PO SCH (10:54)
[2024-05-02 11:54] LABS: Glucose,Whole Blood 111 mg/dL (70-110)
--- NOTE | 2024-05-02 12:09 | CT ---
EXAMINATION TYPE: CT chest angio for PE DATE OF EXAM: 05/02/2024 COMPARISON: 09/22/2022 CLINICAL INDICATION: Female, 79 years old with history of elevated D-Dimer; PHH, elevated dimer chest tightness, SOB or PAIN TECHNIQUE: Ct angiogram of the chest performed with with IV Contrast, patient injected with 80 ml mL of Isovue 3 70. MIP images are created and reviewed. CT DLP: 322.90 mGycm Automated exposure control for dose reduction was used. FINDINGS: The heart is normal size without pericardial effusion. No flattening of the interventricula r septum or reflux of contrast into the hepatic veins. LAD and circumflex coronary artery calcificati ons are present. Mitral annular calcifications. Mild aortic valve calcifications. Borderline ectatic ascending aorta 3.6 cm. Mild atherosclerotic arch calcifications with conventional arterial sobriety anatomy. No thoracic lymphadenopathy by CT size criteria. There is satisfactory opacification the pulmonary arterial system without evidence for pulmonary emb olus. Mild emphysematous change. Scattered subpleural reticular change, greatest in the lower lungs with mi nimal bibasilar bronchiolectasis and some mild groundglass is redemonstrated. 1 cm subpleural opacity posterior right lung base and 6 mm at the left lung base remain unchanged sug gesting a benign etiology. Postsurgical change GE junction. There may be a tiny recurrent hiatal hernia. Cholecystectomy clips i n the upper abdomen. Bones: Mild degenerative disc disease mid and lower thoracic spine. IMPRESSION: 1. No evidence for pulmonary embolus. 2. COPD with minimal emphysema. Some interstitial change scattered throughout as well as some mild ba silar groundglass and minimal basilar bronchiolectasis. Interstitial pneumonitis such as NSIP and DIP are considerations. 3. Postsurgical change at the GE junction. There may be a recurrent tiny hiatal hernia. [facility], , 05/02/2024 12:07 PM
--- NOTE | 2024-05-02 12:57 | P.PN ---
Subjective HISTORY OF PRESENT ILLNESS: The patient is a pleasant 79-year-old female patient with a past medical history significant for diabetes and hypertension and dyslipidemia and history of SVT as well as history of heart failure of unknown etiology, presented to the hospital complaining of palpitations/heart racing. She was in her usual state of health till few days ago when she started experiencing intermittent episodes of palpitation/heart racing with no associated dizziness or lightheadedness or presyncope or syncope or any anginal chest pain or chest discomfort or shortness of breath. She presented to the hospital for further evaluation. She underwent an EKG which showed sinus mechanism. She was experiencing intermittent episode of palpitation in the hospital and the telemetry tracing showed narrow complex tachycardia likely consistent with SVT. She is known to have SVT and she has been on Toprol-XL at 50 mg p.o. daily and she has been compliant with this. In the past she was on 100 mg p.o. daily but that was lowered to 50 mg p.o. daily according to her about few years ago. The last time she had episode of SVT was about 2 years ago. The troponin was checked and came in to be unremarkable with the chest x-ray did not show any acute abnormalities. SH came in to be unremarkable as well. The physical examination is remarkable for regular rhythm with a significant systolic murmur at the right and left upper sternal border as well as apical area with decrease in the intensity of S2. 05/02/2024 Patient examined this morning at bedside. Patient currently denies chest pain or pressure. She denies shortness of breath. Vital signs are stable. Telemetry reviewed revealing patient is going in and out of SVT and sinus mechanism. PHYSICAL EXAM: VITAL SIGNS: Reviewed. GENERAL: Well-developed in no acute distress. NECK: Supple. No JVD or thyromegaly LUNGS: Respirations even and unlabored. Lungs essentially clear to auscultation bilaterally. HEART: Tachycardic. Regular rate and rhythm. S1 and S2 heard. Systolic murmur noted. EXTREMITIES: Normal range of motion. No clubbing or cyanosis. Peripheral pulses intact. No lower extremity edema ASSESSMENT: Long RP tachycardia/SVT, occurring on home dose of metoprolol succinate 50 mg History of SVT Hypertension Diabetes Nonobstructive CAD Obstructive sleep apnea Aortic stenosis Sick sinus syndrome PLAN: Patient to undergo loop recorder insertion today with Dr. Navarrete Patient's metoprolol succinate was increased to 75 mg daily. However we will decrease back down to 50 mg daily. Patient reports she was previously on 75mg but this was decreased back to 50mg as patient was having some issues with bradycardia and unable to tolerate with increase feeling of fatigue Begin flecainide 50 mg twice a day Continue telemetry monitoring Patient will eventually require SVT ablation Further recommendations pending patient course Nurse practitioner note has been reviewed by physician. Signing provider agrees with the documented findings, assessment, and plan of care documented by CONTRACT ADMINISTRATION SPECIALIST as a scribe. Objective - Vital Signs Vital signs: Vital Signs Temp 98.2 F 05/02/24 10:28 Pulse 69 05/02/24 11:12 Resp 15 05/02/24 10:28 BP 139/78 05/02/24 11:12 Pulse Ox 99 05/02/24 11:12 FiO2 Intake & Output 05/01/24 05/02/24 05/02/24 18:59 06:59 18:59 Intake Total 118 118 75 Output Total 540 750 Balance -422 -632 75 Weight 77.7 kg Intake: IV 75 Oral 118 118 Output: Urine 540 750 Other: Voiding Method Toilet Toilet Toilet # Voids 1 - Labs CBC & Chem 7: 05/01/24 02:49 05/02/24 09:09 Labs: Abnormal Lab Results - Last 24 Hours (Table) 05/01/24 05/01/24 05/02/24 Range/Units 15:09 20:03 06:10 D-Dimer 0.72 H (<0.60) mg/L FEU BUN (7-17) mg/dL Creatinine (0.52-1.04) mg/dL Glucose (74-99) mg/dL POC Glucose (mg/dL) 154 H 124 H (70-110) mg/dL 05/02/24 05/02/24 05/02/24 Range/Units 09:09 09:20 11:53 D-Dimer (<0.60) mg/L FEU BUN 33 H (7-17) mg/dL Creatinine 1.10 H (0.52-1.04) mg/dL Glucose 144 H (74-99) mg/dL POC Glucose (mg/dL) 136 H 111 H (70-110) mg/dL
[2024-05-02 17:26] LABS: Glucose,Whole Blood 139 mg/dL (70-110)
--- NOTE | 2024-05-02 19:09 | P.EPPROC ---
- EP Procedure Note Electrophysiology Procedure Note: Loop monitor implant Primary physicians: Dr. Landis Punch Machine Hand: Dr. Navarrete Indication: Recurrent capitation's SVT, evaluation for atrial fibrillation Patient was brought to the EP lab in a fasting state. Written informed consent was obtained prior to the procedure. The left pectoral area was prepped and draped per protocol. Intravenous antibiotic was administered preoperatively. A subcutaneous Loop monitor was implanted successfully and the wound was closed per protocol. The device was programmed to detect significant ines- arrhythmic and tachy-arrhythmic events, per protocol. Device and programming details: Diagnosis and management of atrial tachycardia and atrial fibrillation
[2024-05-02 19:33] LABS: Glucose,Whole Blood 83 mg/dL (70-110)
[2024-05-03 05:52] LABS: Glucose,Whole Blood 122 mg/dL (70-110)
[2024-05-03 07:08] LABS: ALT 17 U/L (4-34); AST 19 U/L (14-36); African American GFR (CKD) 59 (>60 ml/min/1.73 sqM); Albumin 3.5 g/dL (3.5-5.0); Albumin/Globulin Ratio 1.4; Alkaline Phosphatase 109 U/L (38-126); Anion Gap 9 mmol/L; Blood Urea Nitrogen 35 mg/dL (7-17); Calcium 9.4 mg/dL (8.4-10.2); Carbon Dioxide 24 mmol/L (22-30); Chloride 105 mmol/L (98-107); Globulin 2.5 g/dL; Glucose 136 mg/dL (74-99); Non-African American GFR(CKD) 51 (>60 ml/min/1.73 sqM); Potassium 4.4 mmol/L (3.5-5.1); Sodium 138 mmol/L (137-145); Total Bilirubin 0.8 mg/dL (0.2-1.3)
[2024-05-03 07:33] VITALS: BP 128/80; PULSE 68; RESP 16; TEMP 98
[2024-05-03] MEDS: METOPROLOL SUCCINATE (ER) 50 MG TAB.ER.24H PO SCH (08:28)
[2024-05-03 09:12] LABS: Basophils # (A) 0.02 X 10*3/uL (0.00-0.10); Basophils % (A) 0.4 %; Eosinophils # (A) 0.24 X 10*3/uL (0.04-0.35); Eosinophils % (A) 4.7 %; HCT 36.8 % (37.2-46.3); HGB 11.6 g/dL (12.0-15.0); Lymphocytes # (A) 2.03 X 10*3/uL (0.90-5.00); Lymphocytes % (A) 39.7 %; MCHC 31.5 g/dL (32.0-37.0); MCV 101.4 FL (80.0-97.0); Mean Platelet Volume 10.2 FL (9.5-12.2); Monocytes # (A) 0.48 X 10*3/uL (0.20-1.00); Monocytes % (A) 9.4 %; NRBC Per 100 WBC 0 X 10*3/uL (0.00-0.01); Neutrophils # (A) 2.33 X 10*3/uL (1.80-7.70); Neutrophils % (A) 45.6 %; Platelet Count 203 X 10*3/uL (140-440); RBC 3.63 X 10*6/uL (4.10-5.20); RDW 13.5 % (11.5-14.5); WBC 5.11 X 10*3/uL (4.50-10.00)
--- NOTE | 2024-05-03 09:33 | P.PN ---
Subjective Progress Note Date: 05/02/24 This is a pleasant 79-year-old female who was recently admitted with anterior precordial chest pain also noted to have palpitations being closely monitored with cardiology following. Patient had multiple episodes of SVT while in the hospital and is status post loop recorder this morning. Patient did also have an elevated D-dimer and scheduled to undergo CTA today. Cardiology following recommend continue telemetry monitoring and monitor overnight for any signs of arrhythmias. Will follow-up on repeat labs and monitor the patient closely. Patient will need close outpatient follow-up with cardiology on discharge. Review of systems: Constitutional: No reports of fatigue, fever, or chills Cardiovascular: No reports of chest pain or further palpitations Respiratory: No reports of shortness of breath or cough GI: No reports of nausea, no reports of vomiting, no diarrhea : No reports of dysuria or retention Neurovascular: No reports of generalized weakness All medications have been reviewed Active Medications PHYSICAL EXAMINATION: GENERAL: The patient is alert and oriented x4, Well developed, well nourished. Elderly appearing, obese HEENT: Pupils are round and equally reacting to light. EOMI. no scleral icterus. No conjunctival pallor. Normocephalic, atraumatic. No pharyngeal erythema. No thyromegaly. CARDIOVASCULAR: S1 and S2 muffled, irregular PULMONARY: diminished breath sounds bilaterally with no wheezing or rhonchi noted. ABDOMEN: soft. Nontender on exam. obese. non-distended, normoactive bowel sounds. No palpable organomegaly. MUSCULOSKELETAL: No joint swelling or deformity. EXTREMITIES: No cyanosis, clubbing, or pedal edema. NEUROLOGICAL: Gross neurological examination did not reveal any focal deficits. Diffuse weakness SKIN: No rashes. Assessment: Chest pain, possible unstable angina Recurrent SVT status post loop recorder placement History of congestive heart failure, unknown EF Elevated D-dimer, ruled out new PE Gastroesophageal reflux disease Hypertension Hyperlipidemia History of PE History of nonobstructive coronary artery disease Obstructed sleep apnea history History of aortic stenosis Sick sinus syndrome History of cholecystectomy Obesity with a BMI 30.4 GI prophylaxis DVT prophylaxis Full code Plan: Recommend to continue with current medications and management with cardiology following. Patient is status post loop recorder placement today with cardiology recommending continued telemetry monitoring and monitoring overnight as medications have been adjusted and patient started on flecainide. Encourage increase activity as tolerated Follow-up on repeat labs and replace electrolytes per protocol Continue monitoring Accu-Cheks before meals and at bedtime and will continue with sliding scale and adjust insulins accordingly Will discuss with cardiology regarding discharge planning possibly in the next 24 to 48 hours Due to multiple complex medical issues, overall prognosis is guarded The impression and plan of care has been dictated by Sofya Sherman, nurse practitioner as directed. Dr. Kevin MD I have performed a history and examination and MDM of this patient, discussed the same with the dictator, and agree with the dictator's assessment and plan as written ,documented as a scribe. Based on total visit time, I have performed more than 50% of the visit. Any additional findings or plans will be noted. Objective - Vital Signs Vital signs: Vital Signs Temp 98.2 F 05/02/24 10:28 Pulse 69 05/02/24 11:12 Resp 15 05/02/24 10:28 BP 139/78 05/02/24 11:12 Pulse Ox 99 05/02/24 11:12 FiO2 Intake & Output 05/01/24 05/02/24 05/02/24 18:59 06:59 18:59 Intake Total 118 118 75 Output Total 540 750 Balance -422 632 75 Weight 77.7 kg Intake: IV 75 Oral 118 118 Output: Urine 540 750 Other: Voiding Method Toilet Toilet Toilet # Voids 1 - Labs CBC & Chem 7: 05/03/24 06:24 05/03/24 06:24 Labs: Abnormal Lab Results - Last 24 Hours (Table) 05/01/24 05/01/24 05/02/24 Range/Units 15:09 20:03 06:10 D-Dimer 0.72 H (<0.60) mg/L FEU BUN (7-17) mg/dL Creatinine (0.52-1.04) mg/dL Glucose (74-99) mg/dL POC Glucose (mg/dL) 154 H 124 H (70-110) mg/dL 05/02/24 05/02/24 05/02/24 Range/Units 09:09 09:20 11:53 D-Dimer (<0.60) mg/L FEU BUN 33 H (7-17) mg/dL Creatinine 1.10 H (0.52-1.04) mg/dL Glucose 144 H (74-99) mg/dL POC Glucose (mg/dL) 136 H 111 H (70-110) mg/dL
--- NOTE | 2024-05-03 11:54 | P.PN ---
Subjective HISTORY OF PRESENT ILLNESS: The patient is a pleasant 79-year-old female patient with a past medical history significant for diabetes and hypertension and dyslipidemia and history of SVT as well as history of heart failure of unknown etiology, presented to the hospital complaining of palpitations/heart racing. She was in her usual state of health till few days ago when she started experiencing intermittent episodes of palpitation/heart racing with no associated dizziness or lightheadedness or presyncope or syncope or any anginal chest pain or chest discomfort or shortness of breath. She presented to the hospital for further evaluation. She underwent an EKG which showed sinus mechanism. She was experiencing intermittent episode of palpitation in the hospital and the telemetry tracing showed narrow complex tachycardia likely consistent with SVT. She is known to have SVT and she has been on Toprol-XL at 50 mg p.o. daily and she has been compliant with this. In the past she was on 100 mg p.o. daily but that was lowered to 50 mg p.o. daily according to her about few years ago. The last time she had episode of SVT was about 2 years ago. The troponin was checked and came in to be unremarkable with the chest x-ray did not show any acute abnormalities. SH came in to be unremarkable as well. The physical examination is remarkable for regular rhythm with a significant systolic murmur at the right and left upper sternal border as well as apical area with decrease in the intensity of S2. 05/02/2024 Patient examined this morning at bedside. Patient currently denies chest pain or pressure. She denies shortness of breath. Vital signs are stable. Telemetry reviewed revealing patient is going in and out of SVT and sinus mechanism. 05/03/2024 Patient examined this morning at the bedside. She is status post loop recorder insertion patient denies chest pain or pressure. She denies shortness of breath. Patient is maintaining sinus mechanism this morning without episodes of tachycardia. Vital signs are stable. PHYSICAL EXAM: VITAL SIGNS: Reviewed. GENERAL: Well-developed in no acute distress. NECK: Supple. No JVD or thyromegaly LUNGS: Respirations even and unlabored. Lungs essentially clear to auscultation bilaterally. HEART: Regular rate and rhythm. S1 and S2 heard. Systolic murmur noted. EXTREMITIES: Normal range of motion. No clubbing or cyanosis. Peripheral pulses intact. No lower extremity edema ASSESSMENT: Atrial tachycardia with Long RP/SVT, occurring on home dose of metoprolol succinate 50 mg and failing on 75 mg inpatient Status post loop recorder insertion, 05/02/2024 History of SVT Hypertension Diabetes Nonobstructive CAD Obstructive sleep apnea Aortic stenosis Sick sinus syndrome PLAN: Continue current cardiac medications including metoprolol succinate 50 mg daily and flecainide 50 mg twice a day Recommend outpatient SVT ablation Patient may be discharged home today from a cardiac standpoint Patient needs an appointment in the device clinic in 1 week Patient is then to follow-up with Dr. Navarrete in 4 weeks Nurse practitioner note has been reviewed by physician. Signing provider agrees with the documented findings, assessment, and plan of care documented by TDP DISPLAYS ANALYST as a scribe. Objective - Vital Signs Vital signs: Vital Signs Temp 98.0 F 05/03/24 07:00 Pulse 68 05/03/24 07:00 Resp 16 05/03/24 08:00 BP 128/80 05/03/24 07:00 Pulse Ox 99 05/03/24 07:00 FiO2 Intake & Output 05/02/24 05/03/24 05/03/24 18:59 06:59 18:59 Intake Total 75 236 Output Total 475 Balance 75 -475 236 Weight 77.9 kg Intake: IV 75 Oral 236 Output: Urine 475 Other: Voiding Method Toilet Toilet Toilet # Voids 3 - Labs CBC & Chem 7: 05/03/24 06:24 05/03/24 06:24 Labs: Abnormal Lab Results - Last 24 Hours (Table) 05/02/24 05/02/24 05/03/24 Range/Units 11:53 17:25 05:51 RBC (4.10-5.20) X 10*6/uL Hgb (12.0-15.0) g/dL Hct (37.2-46.3) % MCV (80.0-97.0) FL MCHC (32.0-37.0) g/dL BUN (7-17) mg/dL Creatinine (0.52-1.04) mg/dL Glucose (74-99) mg/dL POC Glucose (mg/dL) 111 H 139 H 122 H (70-110) mg/dL Total Protein (6.3-8.2) g/dL 05/03/24 05/03/24 Range/Units 06:24 06:24 RBC 3.63 L (4.10-5.20) X 10*6/uL Hgb 11.6 L (12.0-15.0) g/dL Hct 36.8 L (37.2-46.3) % MCV 101.4 H (80.0-97.0) FL MCHC 31.5 L (32.0-37.0) g/dL BUN 35 H (7-17) mg/dL Creatinine 1.05 H (0.52-1.04) mg/dL Glucose 136 H (74-99) mg/dL POC Glucose (mg/dL) (70-110) mg/dL Total Protein 6.0 L (6.3-8.2) g/dL
[2024-05-03 11:59] LABS: Glucose,Whole Blood 98 mg/dL (70-110)
--- NOTE | 2024-05-04 16:43 | CDI ---
Documentation Clarification Form Date: 05/04/2024 04:35:01 PM From: Estelle Hooker Phone: Admit Date: 04/30/2024 07:24:00 PM Patient Name: Minerva Stone Visit Number: [id number] Discharge Date: 05/03/2024 03:05:00 PM ATTENTION: The Clinical Documentation Specialists (CDI) and [facility] Coding Staff appreciate your assistance in clarifying documentation. Please respond to the clarification below the line at the bottom and electronically sign. The CDI & [facility] Coding staff will review the response and follow-up if needed. Please note: Queries are made part of the Legal Health Record. If you have any questions, please contact the author of this message via ITS. Doctor/Provider: Misael Brown Your patient has the documented diagnosis of unspecified CHF ED Note, H&P and throughout Progress Notes. Additional information regarding the type of CHF is requested. History/Risk Factors: 79yo F, A tach, long RP/SVT sploop recorder,Hx SVT, HTN, DMII, CAD, JESSY, , SSS, HLD Clinical Indicators: VS/Pulse OX: O2 Sat 96 98 BNP: 1330 Chest X Ray: No acute cardiopulmonary disease/process. Treatment: monitored In your professional opinion, can you please clarify the type of CHF if known? [ ] Chronic Systolic Heart Failure (reduced EF) [ ] Chronic Diastolic Heart Failure (preserved EF) [ ] Chronic Systolic & Diastolic Heart Failure [ ] Other, please specify [ x ] Unable to determine (Template Last Revised: April 2020) MTDD
--- NOTE | 2024-05-06 23:15 | P.DS ---
Providers Date of admission: 04/30/24 19:24 Expected date of discharge: 05/03/24 Attending physician: Misael Brown Consults: 04/30/24 19:22 Consult Physician Urgent Consulting Provider: [facility] Consult Reason/Comments: acute chest pain, acute palpitations, hx svt Do you want consulting provider notified?: Yes Primary care physician: Evette Landis Hospital Course: Final diagnosis Chest pain, possible unstable angina Recurrent SVT status post loop recorder placement History of congestive heart failure, unknown EF Elevated D-dimer, ruled out new PE Gastroesophageal reflux disease Hypertension Hyperlipidemia History of PE History of nonobstructive coronary artery disease Obstructed sleep apnea history History of aortic stenosis Sick sinus syndrome History of cholecystectomy Obesity with a BMI 30.4 GI prophylaxis DVT prophylaxis Full code Discharge disposition Patient is being discharged in a stable condition with guarded prognosis to home. Patient will follow-up with Dr. Landis in the outpatient setting upon discharge. Patient is to continue with current cardiac medications and outpatient follow-up with cardiology as scheduled. Total time taken is greater than 35 minutes. Hospital course This is a 79-year-old female who was recently admitted with chest pain with recurrent SVT and evaluated by cardiology and loop recorder was placed. Patient will follow-up with cardiology outpatient in 4 weeks and has been monitored overnight and cleared for discharge today. Please refer to cardiology notes for further HPI. Currently no reports of chest pain, shortness of breath, or palpitations. Patient is afebrile. No reports of nausea or vomiting and patient is tolerating diet. Patient will be discharged home today. Physical exam: Gen: This is a 79-year-old female who is awake, alert and oriented x 3, well- developed, elderly appearing, obese HEENT: Head is atraumatic, normocephalic. Pupils equal, round. Sclerae is anicteric. NECK: Supple. No JVD. No lymphadenopathy. No thyromegaly. LUNGS: Clear to auscultation. No wheezes or rhonchi. No intercostal retractions. HEART: Regular rate and rhythm. No murmur. ABDOMEN: Soft. Bowel sounds are present. No masses. No tenderness. EXTREMITIES: No pedal edema. No calf tenderness. NEUROLOGICAL: Patient is awake, alert and oriented x3. Cranial nerves 2 through 12 are grossly intact. Please refer to medication reconciliation sheet for a list of medications. The impression and plan of care has been dictated by Sofya Sherman, Nurse Practitioner as directed. Dr. Kevin MD I have performed a history and examination and MDM of this patient, discussed the same with the dictator, and agree with the dictator's assessment and plan as written ,documented as a scribe. Based on total visit time, I have performed more than 50% of the visit. Patient Condition at Discharge: Stable Plan - Discharge Summary Discharge Rx Participant: No New Discharge Prescriptions: New Losartan [Cozaar] 50 mg PO DAILY #30 tab Flecainide [Tambocor] 50 mg PO Q12HR #60 tab Continue rOPINIRole HCL [Requip] 3 mg PO HS Aspirin 81 mg PO HS Atorvastatin [Lipitor] 10 mg PO DAILY Zinc 50 mg PO DAILY Pantoprazole Sodium [Protonix] 40 mg PO HS metFORMIN HCL 500 mg PO HS Meclizine [Antivert] 25 mg PO TID PRN PRN Reason: Vertigo Cholecalciferol [Vitamin D3 (25 Mcg = 1000 Iu)] 25 mcg PO DAILY Vibegron [Gemtesa] 75 mg PO DAILY Tamsulosin [Flomax] 0.4 mg PO HS Metoprolol Succinate (ER) [Toprol XL] 50 mg PO DAILY Fluticasone Nasal Mauldin [Flonase Nasal Mauldin] 2 spray EA NOSTRIL DAILY Magnesium Oxide [Mag-Oxide] 200 mg PO HS Discontinued Losartan Potassium 100 mg PO DAILY Discharge Medication List Aspirin 81 mg PO HS 02/26/15 [History] rOPINIRole HCL [Requip] 3 mg PO HS 02/26/15 [History] Atorvastatin [Lipitor] 10 mg PO DAILY 06/10/21 [History] Zinc 50 mg PO DAILY 06/10/21 [History] Pantoprazole Sodium [Protonix] 40 mg PO HS 08/23/21 [History] Cholecalciferol [Vitamin D3 (25 Mcg = 1000 Iu)] 25 mcg PO DAILY 04/30/24 [History] Fluticasone Nasal Mauldin [Flonase Nasal Mauldin] 2 spray EA NOSTRIL DAILY 04/30/24 [History] Magnesium Oxide [Mag-Oxide] 200 mg PO HS 04/30/24 [History] Meclizine [Antivert] 25 mg PO TID PRN 04/30/24 [History] Metoprolol Succinate (ER) [Toprol XL] 50 mg PO DAILY 04/30/24 [History] Tamsulosin [Flomax] 0.4 mg PO HS 04/30/24 [History] Vibegron [Gemtesa] 75 mg PO DAILY 04/30/24 [History] metFORMIN HCL 500 mg PO HS 04/30/24 [History] Flecainide [Tambocor] 50 mg PO Q12HR #60 tab 05/03/24 [Rx] Losartan [Cozaar] 50 mg PO DAILY #30 tab 05/03/24 [Rx] Follow up Appointment(s)/Referral(s): Frank Navarrete MD [STAFF PHYSICIAN] - 05/31/24 10:45 am (Appointment with Device Clinic is on May.10 @ 1:30pm) Evette Landis DO [Primary Care Provider] - 1-2 days Patient Instructions/Handouts: Supraventricular Tachycardia (ED), Supraventricular Tachycardia (DC), Chest Pain (ED), Chest Pain (DC), Cardiac Loop Recorder Insertion (DC), Cardiac Loop Recorder Insertion (GEN) Activity/Diet/Wound Care/Special Instructions: Schedule an appointment in the device clinic in 1 week. Then schedule appointment with Dr. Navarrete in 4 weeks Activity limited until follow-up Follow-up with primary care provider on discharge Follow-up cardiology as discussed Continue taking medications as prescribed RETURN TO ER FOR WORSENING SYMPTOMS, PROBLEMS, OR CONCERNS. Discharge Disposition: HOME SELF-CARE
== END 2024-05-03 15:05 | disposition home or self-care (01) ==
LOC: EC 17:02 → INTOOBSV 19:24 → 6NMEDSUR 19:24 → OBSVTOIN 19:24 → 6NMEDSUR 20:33
PROVIDERS: ADMIT Hospitalist; ATTEND Hospitalist
DX: R07.9 Chest pain, unspecified (principal); I47.19 Other supraventricular tachycardia; I11.0 Hypertensive heart disease with heart failure; I25.10 Atherosclerotic heart disease of native coronary artery without angina pectoris; I35.0 Nonrheumatic aortic (valve) stenosis; I48.91 Unspecified atrial fibrillation; I49.5 Sick sinus syndrome; I50.9 Heart failure, unspecified; G47.33 Obstructive sleep apnea (adult) (pediatric); E78.5 Hyperlipidemia, unspecified; E66.9 Obesity, unspecified; Z68.30 Body mass index [BMI] 30.0-30.9, adult; Z79.82 Long term (current) use of aspirin; Z79.84 Long term (current) use of oral hypoglycemic drugs; Z79.899 Other long term (current) drug therapy; Z85.3 Personal history of malignant neoplasm of breast; Z86.711 Personal history of pulmonary embolism; Z90.49 Acquired absence of other specified parts of digestive tract
CPT/HCPCS: 96374; 96375; 99285; 36415; 93005 ×2; 33285; 86900; 86901; 85379; 83880; 80053 ×2; 80048 ×2; 84443; 83735; 84484; 85025 ×3; 85610 ×2; 85730; 86850; 83036; 71046; 71275; G0378 ×4; C1764; J1940; J0690; J1920; J2003

== ENCOUNTER 2024-06-05 19:44 | Emergency (ER) | payer MEDICARE ==
[2024-06-05 19:49] VITALS: RESP 18
--- NOTE | 2024-06-05 19:57 | ED ---
General Adult HPI - General Chief complaint: Dizziness Stated complaint: ams,dizzy,nausea Time Seen by Provider: 06/05/24 19:51 Source: patient, RN notes reviewed Mode of arrival: wheelchair Limitations: no limitations - History of Present Illness Initial comments: This is a 79-year-old female with a history of SVT, hypertension, hyperlipidemia, diabetes presenting to the emergency department with chief complaint of dizziness. Patient states that when she woke up yesterday morning she began to experience a dizziness sensation and feeling like the room was moving [id number] in addition to nausea and a mild headache. States that symptoms lasted for 3 to 4 hours and resolved and she did not attempt to take any medications to alleviate symptoms. When patient woke up this morning symptoms arose again however have mildly persisted throughout the day and will occasionally intensify with worsening dizziness and nausea. Patient states that she feels off balance when she is ambulating and has been using a cane today. She denies positional changes that intensify dizziness, blurry/double vision, extremity weakness or paresthesias, focal neurological deficits. Patient is scheduled for a cardiac ablation in July due to her history of SVT. - Related Data Home Medications Medication Instructions Recorded Confirmed RX: Aspirin 81 mg PO HS 02/26/15 04/30/24 RX: rOPINIRole HCL [Requip] 3 mg PO HS 02/26/15 04/30/24 RX: Atorvastatin [Lipitor] 10 mg PO DAILY 06/10/21 04/30/24 RX: Zinc 50 mg PO DAILY 06/10/21 04/30/24 RX: Pantoprazole Sodium [Protonix] 40 mg PO HS 08/23/21 04/30/24 RX: Cholecalciferol [Vitamin D3 25 mcg PO DAILY 04/30/24 04/30/24 (25 Mcg = 1000 Iu)] RX: Fluticasone Nasal [place] 2 spray EA NOSTRIL DAILY 04/30/24 04/30/24 [Flonase Nasal [place]] RX: Magnesium Oxide [Mag-Oxide] 200 mg PO HS 04/30/24 04/30/24 RX: Meclizine [Antivert] 25 mg PO TID PRN 04/30/24 04/30/24 RX: Metoprolol Succinate (ER) 50 mg PO DAILY 04/30/24 04/30/24 [Toprol XL] RX: Tamsulosin [Flomax] 0.4 mg PO HS 04/30/24 04/30/24 RX: Vibegron [Gemtesa] 75 mg PO DAILY 04/30/24 05/02/24 RX: metFORMIN HCL 500 mg PO HS 04/30/24 05/01/24 Previous Rx's Medication Instructions Recorded RX: Flecainide [Tambocor] 50 mg PO Q12HR #60 tab 05/03/24 RX: Losartan [Cozaar] 50 mg PO DAILY #30 tab 05/03/24 Allergies Allergy/AdvReac Type Severity Reaction Status Date / Time hydrocodone bitartrate AdvReac Severe Nausea & Verified 06/05/24 19:49 [From Lortab] Vomiting Review of Systems ROS Statement: Those systems with pertinent positive or pertinent negative responses have been documented in the HPI. ROS Other: All systems not noted in ROS Statement are negative. Past Medical History Past Medical History: Blood Disorder, Cancer, Diabetes Mellitus, GERD/Reflux, GI Bleed, Hyperlipidemia, Hypertension Additional Past Medical History / Comment(s): Recent ear and sinus infection, finishing antibiotic 06/11/21. Occasional loose stools, hx of breast cancer with chemo and bilateral mastectomy 2002, palpable lymph node neck area doctor is watching. ANEMIA. BLOOD TRANSFUSION. History of Any Multi-Drug Resistant Organisms: None Reported Past Surgical History: Breast Surgery, Cholecystectomy, Heart Catheterization, Hernia Repair, Joint Replacement, Orthopedic Surgery Additional Past Surgical History / Comment(s): Bilateral knee replacements, cyst removal, [place] surgery, tubal and ovary removed, bilateral mastectomy, D&C with cyro for pre cancerous cells, varicose vein procedure. Loop recorder Past Anesthesia/Blood Transfusion Reactions: Postoperative Nausea & Vomiting (PONV) Additional Past Anesthesia/Blood Transfusion Reaction / Comment(s): Has had blood transfusion with no reaction, slow to wake up and PONV. Past Psychological History: No Psychological Hx Reported Smoking Status: Never smoker Past Alcohol Use History: Rare Past Drug Use History: None Reported - Past Family History Sister(s) Family Medical History: Deep Vein Thrombosis (DVT) Mother Additional Family Medical History / Comment(s): Heart problems. General Exam Limitations: no limitations Course Vital Signs 06/05/24 06/05/24 19:45 21:46 Temperature 97.7 F Pulse Rate 75 64 Respiratory 18 18 Rate Blood Pressure 129/76 118/57 O2 Sat by Pulse 97 Oximetry Medical Decision Making - Medical Decision Making Was pt. sent in by a medical professional or institution (, PA, SENIOR MECHANICAL TECHNICIAN, urgent care, hospital, or alf...) When possible be specific @ -No Did you speak to anyone other than the patient for history (EMS, parent, family, police, friend...)? What history was obtained from this source @ -Spoke with the patient's at bedside who states that patient has been acting like herself over the past 2 days with no obvious changes in her mental status, no recent falls, no repetitive questioning or changes in her speech. Did you review nursing and triage notes (agree or disagree)? Why? @ -I reviewed and agree with nursing and triage notes Were old charts reviewed (outside hosp., previous admission, EMS record, old EKG, old radiological studies, urgent care reports/EKG's, alf records)? Report findings @ -Reviewed ER visit note from 04/30/2024 where she presented with a rapid heart rate and complaints of intermittent rapid heart rate with shortness of breath she was admitted for observation for cardiac monitoring patient had a loop recorder placed for evaluation for A-fib and recurrent SVT Differential Diagnosis (chest pain, altered mental status, abdominal pain women, abdominal pain men, vaginal bleeding, weakness, fever, dyspnea, syncope, headache, dizziness, GI bleed, back pain, seizure, CVA, palpatations, mental health, musculoskeletal)? @ -Differential Dizziness: Benign paroxysmal positional Vertigo, Meniere's disease, otitis media, acoustic neuroma, vertebrobasilar insufficiency, cerebellar stroke, encephalitis, hypovolemic, arrhythmia, coronary artery syndrome, anemia, this is not meant to be an all-inclusive list EKG interpreted by me (3pts min.). @ -Completed at 1956 and is rhythm with a ventricular to 76, TN interval 157, QRS 89, QTc 417. No acute signs of ischemia. X-rays interpreted by me (1pt min.). @ -None done CT interpreted by me (1pt min.). @ -CT of the brain without contrast no acute intracranial process identified CT angiography of the head and neck no evidence of dissection of cervical internal carotid arteries or vertebral arteries with no evidence of significant stenosis of the carotid bifurcations or intracranial high-grade stenosis or intracranial aneurysm U/S interpreted by me (1pt. min.). @ -None done What testing was considered but not performed or refused? (CT, X-rays, U/S, labs)? Why? @ -None What meds were considered but not given or refused? Why? @ -None Did you discuss the management of the patient with other professionals (professionals i.e. , PA, SENIOR MECHANICAL TECHNICIAN, lab, RT, psych nurse, clinical social work therapist, wastewater project engineer, teacher, multisensor intelligence officer, case management coordinator)? Give summary @ -No Was smoking cessation discussed for >3mins.? @ -No Was critical care preformed (if so, how long)? @ -No Were there social determinants of health that impacted care today? How? (Homelessness, low income, unemployed, alcoholism, drug addiction, transportation, low edu. Level, literacy, decrease access to med. care, long term, r ehab)? @ -No Was there de-escalation of care discussed even if they declined (Discuss DNR or withdrawal of care, Hospice)? DNR status @ -No What co-morbidities impacted this encounter? (DM, HTN, Smoking, COPD, CAD, Cancer, CVA, ARF, Chemo, Hep., AIDS, mental health diagnosis, sleep apnea, morbid obesity)? @ -None Was patient admitted / discharged? Hospital course, mention meds given and route, prescriptions, significant lab abnormalities, going to OR and other pertinent info. @ -discharged. 79-year-old female presenting with complaint of dizziness and nausea. Overall patient is well-appearing in no signs of distress. Her initial vitals on presentation are stable. Comprehensive neurological examination completed with no physical evidence of ataxia or cerebellar deficit. No siva dence of aphasia or nystagmus. NIH score 0. GCS of 15. Patient will undergo broad workup for dizziness differential including labs, CT imaging of the brain without contrast and CT angiography in addition to EKG. Laboratory test including CBC, CMP, troponin and coagulation within normal. Patient noted to have elevated BUN of 39 creatinine 1.27 and GFR of 47 which relates with patient's known chronic kidney disease. CT of the brain and CT angiography is unremarkable. Patient was offered observation admission with neurology consult for further evaluation or option with close outpatient follow-up. Patient states that she has a good relationship with her primary care provider outpatient states that she will contact them in the morning for further evaluation and continued management. Return parameters have been discussed with the patient she verbalized understanding. Case discussed with Dr. Booker Undiagnosed new problem with uncertain prognosis? @ -No Drug Therapy requiring intensive monitoring for toxicity (Heparin, Nitro, Insulin, Cardizem)? @ -No Were any procedures done? @ -No Diagnosis/symptom? @ -dizziness Acute, or Chronic, or Acute on Chronic? @ -acute Uncomplicated (without systemic symptoms) or Complicated (systemic symptoms)? @ -uncomplicated Side effects of treatment? @ -No Exacerbation, Progression, or Severe Exacerbation? @ -No Poses a threat to life or bodily function? How? (Chest pain, [place], [place], pneumonia, PE, COPD, DKA, ARF, appy, cholecystitis, CVA, Diverticulitis, Homicidal, Suicidal, threat to staff... and all critical care pts) @ -No - Lab Data Result diagrams: 06/05/24 20:10 06/05/24 20:10 Lab Results 06/05/24 06/05/24 06/05/24 Range/Units 20:10 20:10 20:10 WBC 5.3 (3.8-10.6) k/uL RBC 3.69 L (3.80-5.40) m/uL Hgb 11.4 (11.4-16.0) gm/dL Hct 37.8 (34.0-46.0) % MCV 102.3 H (80.0-100.0) fL MCH 30.7 (25.0-35.0) pg MCHC 30.0 L (31.0-37.0) g/dL RDW 14.0 (11.5-15.5) % Plt Count 251 (150-450) k/uL MPV 8.1 Neutrophils % 46 % Lymphocytes % 40 % Monocytes % 6 % Eosinophils % 5 % Basophils % 0 % Neutrophils # 2.4 (1.3-7.7) k/uL Lymphocytes # 2.1 (1.0-4.8) k/uL Monocytes # 0.3 (0-1.0) k/uL Eosinophils # 0.3 (0-0.7) k/uL Basophils # 0.0 (0-0.2) k/uL Hypochromasia Slight Macrocytosis Slight PT 10.7 (10.0-12.5) sec INR 1.0 (<1.2) APTT 22.7 (22.0-30.0) sec Sodium 138 (137-145) mmol/L Potassium 4.1 (3.5-5.1) mmol/L Chloride 100 (98-107) mmol/L Carbon Dioxide 28 (22-30) mmol/L Anion Gap 10 mmol/L BUN 39 H (7-17) mg/dL Creatinine 1.27 H (0.52-1.04) mg/dL Est GFR (CKD-EPI)AfAm 47 (>60 ml/min/1.73 sqM) Est GFR (CKD-EPI)NonAf 41 (>60 ml/min/1.73 sqM) Glucose 170 H (74-99) mg/dL Plasma Lactic Acid Jamshid (0.7-2.0) mmol/L Calcium 9.4 (8.4-10.2) mg/dL Phosphorus 3.0 (2.5-4.5) mg/dL Magnesium 1.9 (1.6-2.3) mg/dL Total Bilirubin 0.6 (0.2-1.3) mg/dL AST 21 (14-36) U/L ALT 16 (4-34) U/L Alkaline Phosphatase 159 H (38-126) U/L Troponin I (0.000-0.034) ng/mL Total Protein 6.5 (6.3-8.2) g/dL Albumin 3.8 (3.5-5.0) g/dL 06/05/24 06/05/24 Range/Units 20:10 20:18 WBC (3.8-10.6) k/uL RBC (3.80-5.40) m/uL Hgb (11.4-16.0) gm/dL Hct (34.0-46.0) % MCV (80.0-100.0) fL MCH (25.0-35.0) pg MCHC (31.0-37.0) g/dL RDW (11.5-15.5) % Plt Count (150-450) k/uL MPV Neutrophils % % Lymphocytes % % Monocytes % % Eosinophils % % Basophils % % Neutrophils # (1.3-7.7) k/uL Lymphocytes # (1.0-4.8) k/uL Monocytes # (0-1.0) k/uL Eosinophils # (0-0.7) k/uL Basophils # (0-0.2) k/uL Hypochromasia Macrocytosis PT (10.0-12.5) sec INR (<1.2) APTT (22.0-30.0) sec Sodium (137-145) mmol/L Potassium (3.5-5.1) mmol/L Chloride (98-107) mmol/L Carbon Dioxide (22-30) mmol/L Anion Gap mmol/L BUN (7-17) mg/dL Creatinine (0.52-1.04) mg/dL Est GFR (CKD-EPI)AfAm (>60 ml/min/1.73 sqM) Est GFR (CKD-EPI)NonAf (>60 ml/min/1.73 sqM) Glucose (74-99) mg/dL Plasma Lactic Acid Jamshid 1.6 (0.7-2.0) mmol/L Calcium (8.4-10.2) mg/dL Phosphorus (2.5-4.5) mg/dL Magnesium (1.6-2.3) mg/dL Total Bilirubin (0.2-1.3) mg/dL AST (14-36) U/L ALT (4-34) U/L Alkaline Phosphatase (38-126) U/L Troponin I <0.012 (0.000-0.034) ng/mL Total Protein (6.3-8.2) g/dL Albumin (3.5-5.0) g/dL Disposition Clinical Impression: Dizziness Disposition: HOME SELF-CARE Condition: Good Instructions (If sedation given, give patient instructions): Dizziness (ED) Additional Instructions: Please return to the Emergency Department if symptoms worsen or any other concerns. Recommend that you follow-up with your primary care provider within the next 1 to 3 days for further evaluation. Is patient prescribed a controlled substance at d/c from ED?: No Referrals: Evette Landis DO [Primary Care Provider] - 1-2 days Time of Disposition: 22:04
[2024-06-05] MEDS ORDERED: SODIUM CHLORIDE 0.9% 1,000 ML IV SCH (20:15)
[2024-06-05] MEDS: ONDANSETRON 4 MG/2 ML VIAL IVP STA (20:19)
[2024-06-05] MEDS: SODIUM CHLORIDE 0.9% 1,000 ML IV ONE (20:21)
[2024-06-05 20:32] LABS: Basophils % (A) 0 %; Eosinophils # (A) 0.3 k/uL (0-0.7); Eosinophils % (A) 5 %; HCT 37.8 % (34.0-46.0); HGB 11.4 gm/dL (11.4-16.0); Hypochromasia Slight; Lymphocytes # (A) 2.1 k/uL (1.0-4.8); Lymphocytes % (A) 40 %; MCH 30.7 pg (25.0-35.0); MCV 102.3 fL (80.0-100.0); Macrocytosis Slight; Mean Platelet Volume 8.1; Monocytes # (A) 0.3 k/uL (0-1.0); Monocytes % (A) 6 %; Neutrophils # (A) 2.4 k/uL (1.3-7.7); Neutrophils % (A) 46 %; Platelet Count 251 k/uL (150-450); RBC 3.69 m/uL (3.80-5.40); WBC 5.3 k/uL (3.8-10.6)
[2024-06-05 20:43] LABS: Partial Thromboplastin Time 22.7 sec (22.0-30.0); Prothrombin Time 10.7 sec (10.0-12.5)
[2024-06-05 20:50] LABS: ALT 16 U/L (4-34); AST 21 U/L (14-36); African American GFR (CKD) 47 (>60 ml/min/1.73 sqM); Albumin 3.8 g/dL (3.5-5.0); Alkaline Phosphatase 159 U/L (38-126); Anion Gap 10 mmol/L; Blood Urea Nitrogen 39 mg/dL (7-17); Calcium 9.4 mg/dL (8.4-10.2); Carbon Dioxide 28 mmol/L (22-30); Chloride 100 mmol/L (98-107); Glucose 170 mg/dL (74-99); Magnesium 1.9 mg/dL (1.6-2.3); Non-African American GFR(CKD) 41 (>60 ml/min/1.73 sqM); Potassium 4.1 mmol/L (3.5-5.1); Sodium 138 mmol/L (137-145); Total Bilirubin 0.6 mg/dL (0.2-1.3); Total Protein 6.5 g/dL (6.3-8.2)
--- NOTE | 2024-06-05 21:41 | CT ---
EXAMINATION TYPE: CT brain wo con DATE OF EXAM: 06/05/2024 9:34 PM COMPARISON: None. CLINICAL INDICATION: Female, 79 years old with history of dizziness, feeling off balance, headache, D izziness, feeling off balance, headache. TECHNIQUE: Brain: Axial CT images of the brain were obtained with coronal and sagittal reformats created and rev iewed. Contrast used: None. Oral contrast used: None. CT DLP: 1105 mGycm, Automated exposure control for dose reduction was used. FINDINGS: Brain: Extra-axial spaces: No abnormal extra-axial fluid collections. Ventricular system: Within normal limits Cerebral parenchyma: Cerebral atrophy. No acute intraparenchymal hemorrhage or mass effect. The mandujano -white junction is well differentiated. Scattered hypoattenuating areas are seen within the white mat ter. Cerebellum: Unremarkable. Mass effect: No evidence of midline shift. Intracranial vasculature: Atherosclerotic calcifications of the intracranial vessels. Soft tissues: Normal. Calvarium/osseous structures: No depressed skull fracture. Paranasal sinuses and mastoid air cells: Mild scattered paranasal sinus disease. Visualized orbits: Orbital contents are intact. IMPRESSION: 1. No acute intracranial process. 2. Nonspecific white matter changes, likely secondary to chronic small vessel ischemic disease. [facility], , 06/05/2024 9:38 PM
--- NOTE | 2024-06-05 21:52 | CT ---
EXAMINATION TYPE: CT angio head neck DATE OF EXAM: 06/05/2024 9:33 PM COMPARISON: None. CLINICAL INDICATION: Female, 79 years old with history of dizziness, feeling off balance, headache; P HH, Dizziness, feeling off balance, headache. TECHNIQUE: Axially acquired helical CT angiogram of the head and neck was obtained with contrast. Axi al images are supplemented with 3D reconstructions and MIP images which were post-processed at an in dependent workstation. NASCET criteria used. Contrast used:65 ml mL of Isovue 370 with IV Contrast, Oral contrast used: None. CT DLP: 461.5 mGycm, Automated exposure control for dose reduction was used. FINDINGS: CTA HEAD: No evidence of acute intracranial hemorrhage, mass effect, or midline shift. The ventricles, sulci, a nd cisterns are unremarkable. Vertebral arteries: The vertebral arteries are patent. Vertebral artery dominance: Left Basilar artery: The basilar artery is intact. The basilar artery bifurcation is normal. Internal Carotid arteries: The cervical, petrous, cavernous and supraclinoid segments are normal. COLBY: Patent with no evidence of aneurysm. ACOM: Present without evidence of aneurysm. MCA: Patent with no evidence of aneurysm. RETURN TO FACTORY CLERK: Patent with no evidence of aneurysm. PCOM: Hypoplastic bilaterally. Dural sinuses: Patent. CTA NECK: Right Carotid System: The common carotid and external carotid arteries are patent. There is less than 25% stenosis at the c arotid bifurcation secondary to calcified/noncalcified plaque. The rest of the internal carotid arter y is patent. Left Carotid System: The common carotid and external carotid arteries are patent. There is less than 25% stenosis at the c arotid bifurcation secondary to calcified/noncalcified plaque. The rest of the internal carotid arter y is patent. Vertebral arteries are patent without evidence hemodynamically significant stenosis. The left vertebr al artery is dominant. Adjacent to the left internal jugular vein just below the skull base at the level of C1 is a 24 x 15 mm enhancing lesion either arising from the left internal jugular vein or immediately adjacent to thi s the internal jugular vein and arising from another vessel possibly. Multiple tortuous vessels are p resent around this more inferiorly. There is a three-vessel aortic arch. The origins of the great vessels are patent. No evidence of hemo dynamically significant stenosis. Upper thorax: Prominent nonenlarged lymph nodes in the mediastinum. IMPRESSION: 1. No evidence of dissection of the cervical internal carotid arteries or vertebral arteries. 2. No any evidence of significant stenosis at the carotid bifurcations. 3. No evidence of intracranial high-grade stenosis or intracranial aneurysm. 4. Enhancing lesion in the left neck at the level of C1/C2 possibly representing a vascular malforma tion. Consider short-term follow-up CT neck without and following contrast for confirmation. [facility], , 06/05/2024 9:50 PM
[2024-06-05 22:19] VITALS: BP 128/79; PULSE 63; TEMP 98.2
== END 2024-06-05 22:20 | disposition home or self-care (01) ==
LOC: EC 19:44
DX: R42 Dizziness and giddiness (principal); Z88.5 Allergy status to narcotic agent
CPT/HCPCS: 36415; 93005; 80053; 83605; 83735; 84100; 84484; 85025; 85610; 85730; 70496; 70450; 70498; 99285; Q9967; 99284

== ENCOUNTER 2024-06-13 17:34 | Emergency (ER) | payer MEDICARE ==
[2024-06-13 17:57] VITALS: RESP 18
--- NOTE | 2024-06-13 18:05 | ED ---
General Adult HPI - General Source: patient, RN notes reviewed Mode of arrival: wheelchair Limitations: no limitations <Steff Cruz - Last Filed: 06/13/24 18:03> - General Source: patient, RN notes reviewed, old records reviewed Mode of arrival: wheelchair Limitations: no limitations - History of Present Illness -: days(s) (5) Radiation: non-radiation Severity scale (1-10): 2 Consistency: constant Improves with: none Worsens with: none Associated Symptoms: loss of appetite, nausea/vomiting, weakness Treatments Prior to Arrival: none <Colin Booker - Last Filed: 06/13/24 23:08> - General Chief complaint: Nausea/Vomiting/Diarrhea Stated complaint: dizziness, flu + Time Seen by Provider: 06/13/24 17:50 - History of Present Illness Initial comments: Quick [id number] female presenting to the emergency department with complaint of not feeling well since Thursday. Endorses nausea, vomiting, diarrhea. Believes that she is dehydrated as she has been feeling weak and dizzy with activity and shortness of breath on exertion. Denies cough, rhinorrhea, congestion (Steff Cruz) This is a 79 female to the ER for evaluation of weakness not feeling well nausea vomiting diarrhea increasing weakness lightheadedness especially with position changes, occasional abdominal pain and cramping with no fever (Colin Booker) - Related Data Home Medications Medication Instructions Recorded Confirmed Aspirin 81 mg PO HS 02/26/15 04/30/24 rOPINIRole HCL [Requip] 3 mg PO HS 02/26/15 04/30/24 Atorvastatin [Lipitor] 10 mg PO DAILY 06/10/21 04/30/24 Zinc 50 mg PO DAILY 06/10/21 04/30/24 Pantoprazole Sodium [Protonix] 40 mg PO HS 08/23/21 04/30/24 Cholecalciferol [Vitamin D3 (25 25 mcg PO DAILY 04/30/24 04/30/24 Mcg = 1000 Iu)] Fluticasone Nasal [place] [Flonase 2 spray EA NOSTRIL DAILY 04/30/24 04/30/24 Nasal [place]] Magnesium Oxide [Mag-Oxide] 200 mg PO HS 04/30/24 04/30/24 Meclizine [Antivert] 25 mg PO TID PRN 04/30/24 04/30/24 Metoprolol Succinate (ER) [Toprol 50 mg PO DAILY 04/30/24 04/30/24 XL] Tamsulosin [Flomax] 0.4 mg PO HS 04/30/24 04/30/24 Vibegron [Gemtesa] 75 mg PO DAILY 04/30/24 05/02/24 metFORMIN HCL 500 mg PO HS 04/30/24 05/01/24 Previous Rx's Medication Instructions Recorded Flecainide [Tambocor] 50 mg PO Q12HR #60 tab 05/03/24 Losartan [Cozaar] 50 mg PO DAILY #30 tab 05/03/24 Allergies Allergy/AdvReac Type Severity Reaction Status Date / Time hydrocodone bitartrate AdvReac Severe Nausea & Verified 06/13/24 17:52 [From Lortab] Vomiting Review of Systems ROS Other: All systems not noted in ROS Statement are negative. <Steff Cruz - Last Filed: 06/13/24 18:03> ROS Other: All systems not noted in ROS Statement are negative. <Colin Booker - Last Filed: 06/13/24 23:08> ROS Statement: Those systems with pertinent positive or pertinent negative responses have been documented in the HPI. Past Medical History Past Medical History: Blood Disorder, Cancer, Diabetes Mellitus, GERD/Reflux, GI Bleed, Hyperlipidemia, Hypertension Additional Past Medical History / Comment(s): Recent ear and sinus infection, finishing antibiotic 06/11/21. Occasional loose stools, hx of breast cancer with chemo and bilateral mastectomy 2002, palpable lymph node neck area doctor is watching. ANEMIA. BLOOD TRANSFUSION. History of Any Multi-Drug Resistant Organisms: None Reported Past Surgical History: Breast Surgery, Cholecystectomy, Heart Catheterization, Hernia Repair, Joint Replacement, Orthopedic Surgery Additional Past Surgical History / Comment(s): Bilateral knee replacements, cyst removal, [place] surgery, tubal and ovary removed, bilateral mastectomy, D&C with cyro for pre cancerous cells, varicose vein procedure. Loop recorder Past Anesthesia/Blood Transfusion Reactions: Postoperative Nausea & Vomiting (PONV) Additional Past Anesthesia/Blood Transfusion Reaction / Comment(s): Has had blood transfusion with no reaction, slow to wake up and PONV. Past Psychological History: No Psychological Hx Reported Smoking Status: Never smoker Past Alcohol Use History: Rare Past Drug Use History: None Reported - Past Family History Sister(s) Family Medical History: Deep Vein Thrombosis (DVT) Mother Additional Family Medical History / Comment(s): Heart problems. <Steff Cruz - Last Filed: 06/13/24 18:03> General Exam Limitations: no limitations <BooanikaSteff - Last Filed: 06/13/24 18:03> General appearance: alert, in no apparent distress Head exam: Present: atraumatic, normocephalic, normal inspection Eye exam: Present: normal appearance, PERRL, EOMI. Absent: scleral icterus, conjunctival injection, periorbital swelling ENT exam: Present: normal exam, mucous membranes moist Neck exam: Present: normal inspection. Absent: tenderness, meningismus, lymphadenopathy Respiratory exam: Present: normal lung sounds bilaterally. Absent: respiratory distress, wheezes, rales, rhonchi, stridor Cardiovascular Exam: Present: regular rate, normal rhythm, normal heart sounds. Absent: systolic murmur, diastolic murmur, rubs, gallop, clicks GI/Abdominal exam: Present: soft, normal bowel sounds. Absent: distended, tenderness, guarding, rebound, rigid Extremities exam: Present: normal inspection, full ROM, normal capillary refill. Absent: tenderness, pedal edema, joint swelling, calf tenderness Back exam: Present: normal inspection Neurological exam: Present: alert, oriented X3, CN II-XII intact Psychiatric exam: Present: normal affect, normal mood Skin exam: Present: warm, dry, intact, normal color. Absent: rash <Colin Booker - Last Filed: 06/13/24 23:08> - General Exam Comments Initial Comments: Visual Physical Exam Vital signs reviewed General: Well-appearing, nontoxic, no acute distress. Head: Normocephalic, atraumatic Eyes: PERRLA, EOMI ENT: Airway patent Chest: Nonlabored breathing Skin: No visual rash, normal skin tone Neuro: Alert and oriented 3 Musculoskeletal: No gross abnormalities (Stieler,Steff) Course <Colin Booker - Last Filed: 06/13/24 23:08> Vital Signs 06/13/24 17:53 Temperature 98.2 F Pulse Rate 81 Respiratory 18 Rate Blood Pressure 94/64 O2 Sat by Pulse 94 L Oximetry - Reevaluation(s) Reevaluation #1: 06/13/24 22:57 Medical records reviewed (Colin Booker) Reevaluation #2: 06/13/24 22:57 Patient symptoms dramatically improved (Colin Booker) Reevaluation #3: 06/13/24 22:57 Patient informed of results and questions answered (Colin Booker) Reevaluation #4: 06/13/24 22:57 Was pt. sent in by a medical professional or institution (DAVID Shepard, [employer], urgent care, hospital, or intermediate...) When possible be specific @ -no Did you speak to anyone other than the patient for history (EMS, parent, family, police, friend...)? What history was obtained from this source @ -no Did you review nursing and triage notes (agree or disagree)? Why? @ -agree Are old charts reviewed (outside hosp., previous admission, EMS record, old EKG, old radiological studies, urgent care reports/EKG's, intermediate records)? Report findings @ -yes Differential Diagnosis (chest pain, altered mental status, abdominal pain women, abdominal pain men, vaginal bleeding, weakness, fever, dyspnea, syncope, headache, dizziness, GI bleed, back pain, seizure, CVA, palpatations, mental health, musculoskeletal)? @ -prior EKG interpreted by me (3pts min.). @ -yes X-rays interpreted by me (1pt min.). @ -yes negative for acute disease CT interpreted by me (1pt min.). @ -no U/S interpreted by me (1pt. min.). @ -no What testing was considered but not performed or refused? (CT, X-rays, U/S, labs)? Why? @ -none What meds were considered but not given or refused? Why? @ -none Did you discuss the management of the patient with other professionals (professionals i.e. DAVID Shepard, [employer], lab, RT, psych nurse, social and human services assistant, tobacco blender, teacher, infantry weapons officer, complex case manager)? Give summary @ -no Was smoking cessation discussed for >3mins.? @ -no Was critical care preformed (if so, how long)? @ -no Were there social determinants of health that impacted care today? How? (Homelessness, low income, unemployed, alcoholism, drug addiction, tra nsportation, low edu. Level, literacy, decrease access to med. care, m[facility], rehab)? @ -none Was there de-escalation of care discussed even if they declined (Discuss DNR or withdrawal of care, Hospice)? DNR status @ -no What co-morbidities impacted this encounter? (DM, HTN, Smoking, COPD, CAD, Cance r, CVA, ARF, Chemo, Hep., AIDS, mental health diagnosis, sleep apnea, morbid obesity)? @ -none Was patient admitted / discharged? Hospital course, mention meds given and route, prescriptions, significant lab abnormalities, going to OR and other pertinent info. @ - Undiagnosed new problem with uncertain prognosis? @ -no Drug Therapy requiring intensive monitoring for toxicity (Heparin, Nitro, I nsulin, Cardizem)? @ -no Were any procedures done? @ -no Diagnosis/symptom? @ - Acute, or Chronic, or Acute on Chronic? @ -Acute Uncomplicated (without systemic symptoms) or Complicated (systemic symptoms)? @ -Complicated Side effects of treatment? @ -no Exacerbation, Progression, or Severe Exacerbation? @ -exacerbation Poses a threat to life or bodily function? How? (Chest pain, [place], [place], pneumonia, PE, COPD, DKA, ARF, appy, cholecystitis, CVA, Diverticulitis, Homicidal, Suicidal, threat to staff... and all critical care pts) @ -yes (Colin Booker) Reevaluation #5: Differential Weakness: Hypoglycemia, shock, sepsis, hyponatremia, anemia, infection, [place], ETOH, adverse medicine reaction, overdose, stroke, this is not meant to be an all-inclusive list. (Colin Booker) Medical Decision Making <Steff Cruz - Last Filed: 06/13/24 18:03> - Lab Data Result diagrams: 06/13/24 18:39 06/13/24 18:39 <Colin Booker - Last Filed: 06/13/24 23:08> - Medical Decision Making I completed the quick note portion of this chart signed Steff Cruz PA-C (Steff Cruz) 79 female to ER for nausea vomiting weakness dehydration, patient feels improved, will be discharged home with nausea vomiting medication and can be discharged (Colin Booker) - Lab Data Lab Results 06/13/24 06/13/24 06/13/24 Range/Units 18:39 18:39 18:39 WBC 5.1 (3.8-10.6) k/uL RBC 3.95 (3.80-5.40) m/uL Hgb 12.5 (11.4-16.0) gm/dL Hct 39.8 (34.0-46.0) % MCV 100.9 H (80.0-100.0) fL MCH 31.6 (25.0-35.0) pg MCHC 31.3 (31.0-37.0) g/dL RDW 13.8 (11.5-15.5) % Plt Count 214 (150-450) k/uL MPV 8.3 Neutrophils % 56 % Lymphocytes % 34 % Monocytes % 7 % Eosinophils % 1 % Basophils % 0 % Neutrophils # 2.8 (1.3-7.7) k/uL Lymphocytes # 1.7 (1.0-4.8) k/uL Monocytes # 0.3 (0-1.0) k/uL Eosinophils # 0.1 (0-0.7) k/uL Basophils # 0.0 (0-0.2) k/uL Macrocytosis Slight Sodium 131 L (137-145) mmol/L Potassium 3.6 (3.5-5.1) mmol/L Chloride 101 (98-107) mmol/L Carbon Dioxide 19 L (22-30) mmol/L Anion Gap 11 mmol/L BUN 67 H (7-17) mg/dL Creatinine 2.28 H (0.52-1.04) mg/dL Est GFR (CKD-EPI)AfAm 23 (>60 ml/min/1.73 sqM) Est GFR (CKD-EPI)NonAf 20 (>60 ml/min/1.73 sqM) Glucose 132 H (74-99) mg/dL Calcium 9.4 (8.4-10.2) mg/dL Total Bilirubin 0.6 (0.2-1.3) mg/dL AST 20 (14-36) U/L ALT 17 (4-34) U/L Alkaline Phosphatase 113 (38-126) U/L Total Protein 6.4 (6.3-8.2) g/dL Albumin 3.7 (3.5-5.0) g/dL Lipase 83 (23-300) U/L Influenza Type A (PCR) Not Detected (Not Detectd) Influenza Type B (PCR) Not Detected (Not Detectd) RSV (PCR) Not Detected (Not Detectd) SARS-CoV-2 (PCR) Not Detected (Not Detectd) Disposition <Steff Cruz - Last Filed: 06/13/24 18:03> Is patient prescribed a controlled substance at d/c from ED?: No Time of Disposition: 23:00 <Colin Booker - Last Filed: 06/13/24 23:08> Clinical Impression: Dehydration, Gastroenteritis, Nausea & vomiting, DOUG (acute kidney injury) Disposition: HOME SELF-CARE Condition: Good Instructions (If sedation given, give patient instructions): Acute Nausea and Vomiting (ED), Acute Diarrhea (ED) Referrals: Evette Landis DO [Primary Care Provider] - 1-2 days
[2024-06-13 18:53] LABS: Basophils % (A) 0 %; Eosinophils # (A) 0.1 k/uL (0-0.7); Eosinophils % (A) 1 %; HCT 39.8 % (34.0-46.0); HGB 12.5 gm/dL (11.4-16.0); Lymphocytes # (A) 1.7 k/uL (1.0-4.8); Lymphocytes % (A) 34 %; MCH 31.6 pg (25.0-35.0); MCHC 31.3 g/dL (31.0-37.0); MCV 100.9 fL (80.0-100.0); Macrocytosis Slight; Mean Platelet Volume 8.3; Monocytes # (A) 0.3 k/uL (0-1.0); Monocytes % (A) 7 %; Neutrophils # (A) 2.8 k/uL (1.3-7.7); Neutrophils % (A) 56 %; Platelet Count 214 k/uL (150-450); RBC 3.95 m/uL (3.80-5.40); RDW 13.8 % (11.5-15.5); WBC 5.1 k/uL (3.8-10.6)
[2024-06-13 19:22] LABS: Influenza A Not Detected (Not Detectd); Influenza B Not Detected (Not Detectd); RSV Not Detected (Not Detectd)
[2024-06-13 19:26] LABS: ALT 17 U/L (4-34); AST 20 U/L (14-36); African American GFR (CKD) 23 (>60 ml/min/1.73 sqM); Albumin 3.7 g/dL (3.5-5.0); Alkaline Phosphatase 113 U/L (38-126); Anion Gap 11 mmol/L; Blood Urea Nitrogen 67 mg/dL (7-17); Calcium 9.4 mg/dL (8.4-10.2); Carbon Dioxide 19 mmol/L (22-30); Chloride 101 mmol/L (98-107); Glucose 132 mg/dL (74-99); Lipase 83 U/L (23-300); Non-African American GFR(CKD) 20 (>60 ml/min/1.73 sqM); Potassium 3.6 mmol/L (3.5-5.1); Sodium 131 mmol/L (137-145); Total Bilirubin 0.6 mg/dL (0.2-1.3); Total Protein 6.4 g/dL (6.3-8.2)
[2024-06-13] MEDS: SODIUM CHLORIDE 0.9% 1,000 ML IV ONE (22:54)
[2024-06-13] MEDS: SODIUM CHLORIDE 0.9% 500 ML 500 ML IV ONE (22:55)
[2024-06-13] MEDS: ONDANSETRON 4 MG/2 ML VIAL IVP STA (22:56)
[2024-06-13] MEDS: PANTOPRAZOLE 40 MG/10 ML VIAL IVP STA (22:58)
[2024-06-13] MEDS: ONDANSETRON 4 MG ODT STARTER PACK 2 TAB BTL PO STA (23:44)
[2024-06-13 23:56] VITALS: BP 136/62; PULSE 73; TEMP 98.3
== END 2024-06-13 23:58 | disposition home or self-care (01) ==
LOC: EC 17:34
DX: K52.9 Noninfective gastroenteritis and colitis, unspecified (principal); E86.0 Dehydration; N17.9 Acute kidney failure, unspecified; Z88.5 Allergy status to narcotic agent
CPT/HCPCS: 80053; 83690; 85025; 87636; 99284; 96374; 96375; 96361; J2405; S0119; J2470

== ENCOUNTER 2024-06-15 10:07 | Emergency (ER) | payer MEDICARE ==
--- NOTE | 2024-06-15 10:28 | ED ---
Recheck HPI - General Chief Complaint: Recheck/Abnormal Lab/Rx Stated Complaint: abn vitals-sent by pcp Time Seen by Provider: 06/15/24 10:18 Source: patient, RN notes reviewed Mode of arrival: ambulatory Limitations: no limitations - History of Present Illness Initial Comments: This is a 79-year-old female who presents to the emergency department for ge neralized weakness. States that starting 4 days ago she was exhibiting nausea, vomiting, and diarrhea. She came to the emergency department 2 days ago and received IV fluids. States that the vomiting has since resolved, however she still feels weak and rundown. Also reports some residual diarrhea. She is having about 4 bowel movements each day and states that they are very loose. Denies any abdominal pain. She followed up with her PCP today and they were concerned that her vital signs were "low" however patient does not know any more than this. As a result they advised she return for further evaluation and possibly more IV fluids. - Related Data Home Medications Medication Instructions Recorded Confirmed Aspirin 81 mg PO HS 02/26/15 04/30/24 rOPINIRole HCL [Requip] 3 mg PO HS 02/26/15 04/30/24 Atorvastatin [Lipitor] 10 mg PO DAILY 06/10/21 04/30/24 Zinc 50 mg PO DAILY 06/10/21 04/30/24 Pantoprazole Sodium [Protonix] 40 mg PO HS 08/23/21 04/30/24 Cholecalciferol [Vitamin D3 (25 25 mcg PO DAILY 04/30/24 04/30/24 Mcg = 1000 Iu)] Fluticasone Nasal [place] [Flonase 2 spray EA NOSTRIL DAILY 04/30/24 04/30/24 Nasal [place]] Magnesium Oxide [Mag-Oxide] 200 mg PO HS 04/30/24 04/30/24 Meclizine [Antivert] 25 mg PO TID PRN 04/30/24 04/30/24 Metoprolol Succinate (ER) [Toprol 50 mg PO DAILY 04/30/24 04/30/24 XL] Tamsulosin [Flomax] 0.4 mg PO HS 04/30/24 04/30/24 Vibegron [Gemtesa] 75 mg PO DAILY 04/30/24 05/02/24 metFORMIN HCL 500 mg PO HS 04/30/24 05/01/24 Previous Rx's Medication Instructions Recorded Flecainide [Tambocor] 50 mg PO Q12HR #60 tab 05/03/24 Losartan [Cozaar] 50 mg PO DAILY #30 tab 05/03/24 Ciprofloxacin HCl [Cipro] 500 mg PO Q12HR 7 Days #14 tab 06/15/24 Allergies Allergy/AdvReac Type Severity Reaction Status Date / Time hydrocodone bitartrate AdvReac Severe Nausea & Verified 06/15/24 10:14 [From Lortab] Vomiting Review of Systems ROS Statement: Those systems with pertinent positive or pertinent negative responses have been documented in the HPI. ROS Other: All systems not noted in ROS Statement are negative. Past Medical History Past Medical History: Blood Disorder, Cancer, Diabetes Mellitus, GERD/Reflux, GI Bleed, Hyperlipidemia, Hypertension Additional Past Medical History / Comment(s): Recent ear and sinus infection, finishing antibiotic 06/11/21. Occasional loose stools, hx of breast cancer with chemo and bilateral mastectomy 2002, palpable lymph node neck area doctor is watching. ANEMIA. BLOOD TRANSFUSION. History of Any Multi-Drug Resistant Organisms: None Reported Past Surgical History: Breast Surgery, Cholecystectomy, Heart Catheterization, Hernia Repair, Joint Replacement, Orthopedic Surgery Additional Past Surgical History / Comment(s): Bilateral knee replacements, cyst removal, [place] surgery, tubal and ovary removed, bilateral mastectomy, D&C with cyro for pre cancerous cells, varicose vein procedure. Loop recorder Past Anesthesia/Blood Transfusion Reactions: Postoperative Nausea & Vomiting (PONV) Additional Past Anesthesia/Blood Transfusion Reaction / Comment(s): Has had blood transfusion with no reaction, slow to wake up and PONV. Past Psychological History: No Psychological Hx Reported Smoking Status: Never smoker Past Alcohol Use History: Rare Past Drug Use History: None Reported - Past Family History Sister(s) Family Medical History: Deep Vein Thrombosis (DVT) Mother Additional Family Medical History / Comment(s): Heart problems. General Exam Limitations: no limitations General appearance: alert, in no apparent distress Head exam: Present: atraumatic, normocephalic, normal inspection Respiratory exam: Present: normal lung sounds bilaterally. Absent: respiratory distress, wheezes, rales, rhonchi, stridor Cardiovascular Exam: Present: regular rate, normal rhythm GI/Abdominal exam: Present: soft, normal bowel sounds. Absent: distended, tenderness, guarding, rebound, rigid Neurological exam: Present: alert, oriented X3, CN II-XII intact Psychiatric exam: Present: normal affect, normal mood Skin exam: Present: warm, dry, intact, normal color. Absent: rash Course Vital Signs 06/15/24 06/15/24 06/15/24 10:09 11:29 12:11 Temperature 98 F 98.4 F Pulse Rate 69 66 66 Respiratory 18 18 20 Rate Blood Pressure 128/77 116/56 120/68 O2 Sat by Pulse 95 100 99 Oximetry Medical Decision Making - Medical Decision Making This is a 79 year old female who presents to the emergency department for weakness. Was pt. sent in by a medical professional or institution? @ -Her PCP Did you speak to anyone other than the patient for history? @ -No Did you review nursing and triage notes? @ -Yes, and I agree, it is accurate with regards to the patient's symptoms. Were old charts reviewed? @ -Creatinine from 06/13 which was 2.28 and eGFR from that day was 20. COVID, influenza, and RSV testing from that day were negative. Differential Diagnosis? @ -Differential Weakness: Hypoglycemia, shock, sepsis, hyponatremia, anemia, infection, ME, ETOH, adverse medicine reaction, overdose, stroke, this is not meant to be an all-inclusive list. EKG interpreted by me (3pts min.)? @ -EKG interpreted by me demonstrating the following: Sinus rhythm. Ventricular rate 67 bpm, [place] interval 169 ms, QRS duration 108 ms, QTc 429 ms. X-rays interpreted by me (1pt min.)? @ -Not obtained CT interpreted by me (1pt min.)? @ -Not obtained U/S interpreted by me (1pt. min.)? @ -Not obtained What testing was considered but not performed? (CT, X-rays, U/S, labs)? Why? @ -None What meds were considered but not given? Why? @ -None Did you discuss the management of the patient with other professionals? @ -No Did you reconcile home meds? @ -No Was smoking cessation discussed for >3mins.? @ -No Was critical care preformed (if so, how long)? @ -No Were there social determinants of health that impacted care today? How? (Homelessness, low income, unemployed, alcoholism, drug addiction, transportation, low edu. Level, literacy, decrease access to med. care, fci, r ehab)? @ -No Was there de-escalation of care discussed even if they declined? (Discuss DNR or withdrawal of care, Hospice)? @ -No What co-morbidities impacted this encounter? (DM, HTN, Smoking, COPD, CAD, Cancer, CVA, Hep., AIDS, mental health diagnosis, sleep apnea, morbid obesity)? @ -DM, CKD Was patient admitted / discharged? @ -Discharged. Lab work demonstrates signs of dehydration, however renal funct ion is improved when compared with prior. eGFR from 06/13 was 20 and today it is up to 30. Creatinine also improved. On 06/13 it was 2.28 and today it is 1.63. Cepheid 4-plex swab from 2 days ago was negative and this was not repeated. Urinalysis from today is consistent with infection and urine was sent for culture. 1 g of ceftriaxone administered along with 1 L of IV fluids. Patient was comfortable discharge home and states that she was in general feeling much better. Ciprofloxacin prescribed for further management of the UTI. We discussed [id number] Imodium as needed for diarrhea and making sure that she remains well-hydrated. Patient discharged home in stable condition. Case discussed with ED attending Dr. Herron. Return precautions reviewed in depth, the patient is instructed to return to the emergency department with any new, worsening, or concerning symptoms. Patient verbalized understanding. Undiagnosed new problem with uncertain prognosis? @ -None Drug Therapy requiring intensive monitoring for toxicity (Heparin, Nitro, Ins ulin, Cardizem)? @ -None Were any procedures done? @ -None Diagnosis/symptom? @ -Weakness, UTI, diarrhea Acute, or Chronic, or Acute on Chronic? @ -Acute Uncomplicated (without systemic symptoms) or Complicated (systemic symptoms)? @ -Uncomplicated Side effects of treatment? @ -None Exacerbation, Progression, or Severe Exacerbation] @ -Not applicable Poses a threat to life or bodily function? @ -No - Lab Data Result diagrams: 06/15/24 10:27 06/15/24 10:27 Lab Results 06/15/24 06/15/24 06/15/24 Range/Units 10:27 10: 10:27 WBC 6.1 (3.8-10.6) k/uL RBC 3.68 L (3.80-5.40) m/uL Hgb 11.5 (11.4-16.0) gm/dL Hct 36.6 (34.0-46.0) % MCV 99.5 (80.0-100.0) fL MCH 31.3 (25.0-35.0) pg MCHC 31.5 (31.0-37.0) g/dL RDW 13.4 (11.5-15.5) % Plt Count 203 (150-450) k/uL MPV 7.6 Neutrophils % 60 % Lymphocytes % 30 % Monocytes % 6 % Eosinophils % 2 % Basophils % 0 % Neutrophils # 3.7 (1.3-7.7) k/uL Lymphocytes # 1.8 (1.0-4.8) k/uL Monocytes # 0.3 (0-1.0) k/uL Eosinophils # 0.1 (0-0.7) k/uL Basophils # 0.0 (0-0.2) k/uL Hypochromasia Slight Sodium 135 L (137-145) mmol/L Potassium 3.8 (3.5-5.1) mmol/L Chloride 108 H (98-107) mmol/L Carbon Dioxide 18 L (22-30) mmol/L Anion Gap 9 mmol/L BUN 48 H (7-17) mg/dL Creatinine 1.63 H (0.52-1.04) mg/dL Est GFR (CKD-EPI)AfAm 35 (>60 ml/min/1.73 sqM) Est GFR (CKD-EPI)NonAf 30 (>60 ml/min/1.73 sqM) Glucose 118 H (74-99) mg/dL Plasma Lactic Acid Jamshid (0.7-2.0) mmol/L Calcium 9.0 (8.4-10.2) mg/dL Phosphorus 3.0 (2.5-4.5) mg/dL Magnesium 2.5 H (1.6-2.3) mg/dL Total Bilirubin 0.6 (0.2-1.3) mg/dL AST 21 (14-36) U/L ALT 16 (4-34) U/L Alkaline Phosphatase 118 (38-126) U/L Total Protein 6.0 L (6.3-8.2) g/dL Albumin 3.4 L (3.5-5.0) g/dL Urine Color Colorless Urine Appearance Cloudy H (Clear) Urine pH 5.5 (5.0-8.0) Ur Specific [place] 1.011 (1.001-1.035) Urine Protein Trace H (Negative) Urine Glucose (UA) Negative (Negative) Urine Ketones Negative (Negative) Urine Blood Negative (Negative) Urine Nitrite Positive H (Negative) Urine Bilirubin Negative (Negative) Urine Urobilinogen <2.0 (<2.0) mg/dL Ur Leukocyte Esterase Large H (Negative) Urine WBC 104 H (0-5) /hpf Urine WBC Clumps Moderate H (None) /hpf Ur Squamous Epith Cells <1 (0-4) /hpf Urine Bacteria Occasional H (None) /hpf Urine Mucus Rare H (None) /hpf 06/15/24 Range/Units 10:27 WBC (3.8-10.6) k/uL RBC (3.80-5.40) m/uL Hgb (11.4-16.0) gm/dL Hct (34.0-46.0) % MCV (80.0-100.0) fL MCH (25.0-35.0) pg MCHC (31.0-37.0) g/dL RDW (11.5-15.5) % Plt Count (150-450) k/uL MPV Neutrophils % % Lymphocytes % % Monocytes % % Eosinophils % % Basophils % % Neutrophils # (1.3-7.7) k/uL Lymphocytes # (1.0-4.8) k/uL Monocytes # (0-1.0) k/uL Eosinophils # (0-0.7) k/uL Basophils # (0-0.2) k/uL Hypochromasia Sodium (137-145) mmol/L Potassium (3.5-5.1) mmol/L Chloride (98-107) mmol/L Carbon Dioxide (22-30) mmol/L Anion Gap mmol/L BUN (7-17) mg/dL Creatinine (0.52-1.04) mg/dL Est GFR (CKD-EPI)AfAm (>60 ml/min/1.73 sqM) Est GFR (CKD-EPI)NonAf (>60 ml/min/1.73 sqM) Glucose (74-99) mg/dL Plasma Lactic Acid Jamshid 0.8 (0.7-2.0) mmol/L Calcium (8.4-10.2) mg/dL Phosphorus (2.5-4.5) mg/dL Magnesium (1.6-2.3) mg/dL Total Bilirubin (0.2-1.3) mg/dL AST (14-36) U/L ALT (4-34) U/L Alkaline Phosphatase (38-126) U/L Total Protein (6.3-8.2) g/dL Albumin (3.5-5.0) g/dL Urine Color Urine Appearance (Clear) Urine pH (5.0-8.0) Ur Specific [place] (1.001-1.035) Urine Protein (Negative) Urine Glucose (UA) (Negative) Urine Ketones (Negative) Urine Blood (Negative) Urine Nitrite (Negative) Urine Bilirubin (Negative) Urine Urobilinogen (<2.0) mg/dL Ur Leukocyte Esterase (Negative) Urine WBC (0-5) /hpf Urine WBC Clumps (None) /hpf Ur Squamous Epith Cells (0-4) /hpf Urine Bacteria (None) /hpf Urine Mucus (None) /hpf - Radiology Data Radiology results: report reviewed, image reviewed Disposition Clinical Impression: UTI (urinary tract infection), Weakness, Diarrhea Disposition: HOME SELF-CARE Instructions (If sedation given, give patient instructions): Urinary Tract Infection in Women (ED), Acute Diarrhea (ED) Additional Instructions: Return to the emergency department with any new, worsening, or concerning symptoms. Take the antibiotic as prescribed for 7 days. Follow up with your primary care provider in 1-2 days. Prescriptions: Ciprofloxacin HCl [Cipro] 500 mg PO Q12HR 7 Days #14 tab Is patient prescribed a controlled substance at d/c from ED?: No Referrals: Evette Landis DO [Primary Care Provider] - 1-2 days Time of Disposition: 11:50
[2024-06-15 10:37] LABS: Basophils % (A) 0 %; Eosinophils # (A) 0.1 k/uL (0-0.7); Eosinophils % (A) 2 %; HCT 36.6 % (34.0-46.0); HGB 11.5 gm/dL (11.4-16.0); Hypochromasia Slight; Lymphocytes # (A) 1.8 k/uL (1.0-4.8); Lymphocytes % (A) 30 %; MCH 31.3 pg (25.0-35.0); MCHC 31.5 g/dL (31.0-37.0); MCV 99.5 fL (80.0-100.0); Mean Platelet Volume 7.6; Monocytes # (A) 0.3 k/uL (0-1.0); Monocytes % (A) 6 %; Neutrophils # (A) 3.7 k/uL (1.3-7.7); Neutrophils % (A) 60 %; Platelet Count 203 k/uL (150-450); RBC 3.68 m/uL (3.80-5.40); RDW 13.4 % (11.5-15.5); WBC 6.1 k/uL (3.8-10.6)
[2024-06-15] MEDS: SODIUM CHLORIDE 0.9% 1,000 ML IV ONE (10:49)
[2024-06-15 10:57] LABS: Potassium 3.8 mmol/L (3.5-5.1)
[2024-06-15 10:58] LABS: ALT 16 U/L (4-34); AST 21 U/L (14-36); African American GFR (CKD) 35 (>60 ml/min/1.73 sqM); Albumin 3.4 g/dL (3.5-5.0); Alkaline Phosphatase 118 U/L (38-126); Anion Gap 9 mmol/L; Blood Urea Nitrogen 48 mg/dL (7-17); Carbon Dioxide 18 mmol/L (22-30); Chloride 108 mmol/L (98-107); Glucose 118 mg/dL (74-99); Magnesium 2.5 mg/dL (1.6-2.3); Non-African American GFR(CKD) 30 (>60 ml/min/1.73 sqM); Sodium 135 mmol/L (137-145); Total Bilirubin 0.6 mg/dL (0.2-1.3)
[2024-06-15 11:34] VITALS: PULSE 66
[2024-06-15 11:38] LABS: Appearance,Urine Cloudy (Clear); Bacteria,Urine Occasional /hpf; Bilirubin,Urine Negative (Negative); Blood,Urine Negative (Negative); Color,Urine Colorless; Glucose,Urine (UA) Negative (Negative); Ketones,Urine Negative (Negative); Leukocyte Esterase,Urine Large (Negative); Mucus,Urine Rare /hpf; Nitrite,Urine Positive (Negative); PH, Urine 5.5 (5.0-8.0); Protein,Urine Trace (Negative); Specific Gravity,Urine 1.011 (1.001-1.035); Squamous Epithelial Cell,Urine <1 /hpf (0-4); Urobilinogen,Urine <2.0 mg/dL (<2.0); WBC,Urine 104 /hpf (0-5)
[2024-06-15] MEDS: cefTRIAXone IN SWFI 1,000 MG/10 ML SYRINGE IVP STA (11:58)
[2024-06-15] MEDS: DIPHENOX-ATROP STARTER PACK 8 TAB BTL PO STA (11:58)
[2024-06-15 12:12] VITALS: BP 120/68; RESP 20; TEMP 98.4
== END 2024-06-15 12:14 | disposition home or self-care (01) ==
LOC: EC 10:07
DX: R53.1 Weakness (principal); N39.0 Urinary tract infection, site not specified; R19.7 Diarrhea, unspecified; Z88.5 Allergy status to narcotic agent
CPT/HCPCS: 36415; 93005; 80053; 83605; 83735; 84100; 85025; 81001; 87086; 99284; 96374; 96361; J0696

== ENCOUNTER → 2024-07-21 | Outpatient (CLI) | payer MEDICARE ==
[2024-07-21 15:39] LABS: HGB 10.8 g/dL (12.0-15.0); MCH 31.2 pg (27.0-32.0); MCHC 30.9 g/dL (32.0-37.0); MCV 101.2 FL (80.0-97.0); Mean Platelet Volume 10.1 FL (9.5-12.2); NRBC Per 100 WBC 0 X 10*3/uL (0.00-0.01); Platelet Count 215 X 10*3/uL (140-440); RBC 3.46 X 10*6/uL (4.10-5.20); WBC 5.15 X 10*3/uL (4.50-10.00)
[2024-07-21 15:51] LABS: Carbon Dioxide 26.2 mmol/L (21.6-31.8); Chloride 103 mmol/L (96-109); Potassium 4.6 mmol/L (3.5-5.5); Sodium 141 mmol/L (135-145)
== END | disposition home or self-care (01) ==
LOC: LABPAT 08:32
PROVIDERS: ATTEND Internal Medicine Clinical Cardiac Electrophysiology
DX: Z01.812 Encounter for preprocedural laboratory examination (principal); I47.10 Supraventricular tachycardia, unspecified
CPT/HCPCS: 80051; 82565; 84520; 85027

== ENCOUNTER 2024-07-26 09:18 | Day surgery (SDC) | payer MEDICARE ==
[2024-07-22 09:11] VITALS: BMI 30.9
[2024-07-26] MEDS: SODIUM CHLORIDE 0.9% 1,000 ML IV SCH (09:43)
[2024-07-26] MEDS: IV FLUID CONTINUATION 1,000 ML IV ONE (09:56)
[2024-07-26 10:20] LABS: ALT 19 U/L (4-34); AST 22 U/L (14-36); African American GFR (CKD) 60 (>60 ml/min/1.73 sqM); Alkaline Phosphatase 143 U/L (38-126); Anion Gap 9 mmol/L; Blood Urea Nitrogen 31 mg/dL (7-17); Calcium 10.6 mg/dL (8.4-10.2); Carbon Dioxide 26 mmol/L (22-30); Chloride 104 mmol/L (98-107); Glucose 119 mg/dL (74-99); Non-African American GFR(CKD) 52 (>60 ml/min/1.73 sqM); Sodium 139 mmol/L (137-145); Total Bilirubin 1.1 mg/dL (0.2-1.3); Total Protein 6.9 g/dL (6.3-8.2)
[2024-07-26] MEDS ORDERED: HEPARIN SODIUM,PORCINE 10,000 UNIT/ML 1 ML VIAL ONE (10:58)
[2024-07-26] MEDS ORDERED: KETAMINE HCL IN 0.9 % NACL 50 MG/5 ML SYRINGE ONE (10:58)
[2024-07-26] MEDS ORDERED: fentaNYL (PF) 50 MCG/ML 2 ML AMP ONE (10:58)
[2024-07-26] MEDS ORDERED: MIDAZOLAM 2 MG/2 ML VIAL ONE (10:58)
[2024-07-26] MEDS ORDERED: DEXAMETHASONE SOD PHOSPHATE 10 MG/ML 1 ML VIAL ONE (10:58)
[2024-07-26] MEDS ORDERED: PROTAMINE SULFATE 10 MG/ML 5 ML VIAL ONE (10:58)
[2024-07-26] MEDS ORDERED: PROPOFOL 10 MG/ML 20 ML VIAL IV ONE (10:58)
[2024-07-26] MEDS: HEPARIN SODIUM,PORCINE 10,000 UNIT in SODIUM CHLORIDE 0.9% 1,000 ML IRRIGATION ONE (11:12)
[2024-07-26] MEDS: LIDOCAINE 1% INJ 10MG/ML (20 ML MDV) SQ ONE (11:25)
[2024-07-26] MEDS ORDERED: FUROSEMIDE 20 MG TAB PO PRN (15:10)
[2024-07-26] MEDS ORDERED: IPRATROPIUM BROMIDE 0.06% NASAL SPRAY (15 ML) EA NOSTRIL PRN (15:10)
--- NOTE | 2024-07-26 15:10 | P.HPCAR ---
History of Present Illness This is Dr. Navarrete dictating an H/P on this patient The patient was interviewed and examined IMPRESSION / ASSESSMENT: Recurrent atrial tachycardia/SVT, long RP tachycardia Mild aortic stenosis Obstructive sleep apnea Hypertension well-controlled Underlying sick sinus syndrome Failing flecainide therapy PLAN: Diagnose EP study and SVT ablation HPI Patient continues to have episodes of palpitations associate with dizziness Occasional chest discomfort associated with palpitations ROS: No fever chills or rigors, no cough, phlegm or expectoration, no nausea, vomiting or diarrhea, no hematuria, dysuria, no musculoskeletal complaints, no strokes or seizures, no skin lesions. EXAMINATION: Blood pressure 180/90 mmHg pulse rate in the 80s afebrile Heart sounds S1-S2 normal patient with normal rhythm at this time No JVD No lower extremity edema Clear lungs no rhonchi no crackles REVIEW OF LABS, ECG & MEDICAL DATA Sodium 139 potassium 4.0 BUN 31 creatinine 1.0 ALT and AST are normal TSH was normal at 2.1 Physical Exam Vitals: Vital Signs Temp Pulse Resp BP Pulse Ox 07/26/24 09:58 97.8 F 84 16 181/90 97 Intake and Output 07/26/24 07/26/24 07/26/24 06:59 14:59 22:59 Intake Total 0 Balance 0 Intake: IV 0 Other: Weight 80.6 kg Past Medical History Past Medical History: Blood Disorder, Coronary Artery Disease (CAD), Cancer, Diabetes Mellitus, GERD/Reflux, GI Bleed, Hyperlipidemia, Hypertension, Supraventricular Tachycardia (SVT) Additional Past Medical History / Comment(s): breast cancer with chemo and bilateral mastectomy 2002. ANEMIA NEEDING BLOOD TRANSFUSION. History of Any Multi-Drug Resistant Organisms: None Reported Past Surgical History: Breast Surgery, Cholecystectomy, Heart Catheterization, Hernia Repair, Joint Replacement, Orthopedic Surgery Additional Past Surgical History / Comment(s): Bilateral knee replacements, cyst removal, [place] surgery, tubal and ovary removed, bilateral mastectomy, D&C with cyro for pre cancerous cells, varicose vein procedure, Loop recorder, left shoulder replacement and revision. Past Anesthesia/Blood Transfusion Reactions: Postoperative Nausea & Vomiting (PONV) Additional Past Anesthesia/Blood Transfusion Reaction / Comment(s): Has had blood transfusion with no reaction, slow to wake up and PONV. Past Psychological History: No Psychological Hx Reported Smoking Status: Never smoker Past Alcohol Use History: None Reported Past Drug Use History: None Reported - Past Family History Sister(s) Family Medical History: Deep Vein Thrombosis (DVT) Mother Additional Family Medical History / Comment(s): Heart problems. Physical Examination Vital Signs Temp Pulse Resp BP Pulse Ox 07/26/24 09:58 97.8 F 84 16 181/90 97 Intake and Output 07/26/24 07/26/24 07/26/24 06:59 14:59 22:59 Intake Total 0 Balance 0 Intake: IV 0 Other: Weight 80.6 kg Results 07/26/24 09:50 Cardiac Enzymes 07/26/24 Range/Units 09:50 AST 22 (14-36) U/L Comprehensive Metabolic Panel 07/26/24 Range/Units 09:50 Sodium 139 (137-145) mmol/L Potassium 4.0 (3.5-5.1) mmol/L Chloride 104 (98-107) mmol/L Carbon Dioxide 26 (22-30) mmol/L BUN 31 H (7-17) mg/dL Creatinine 1.04 (0.52-1.04) mg/dL Glucose 119 H (74-99) mg/dL Calcium 10.6 H (8.4-10.2) mg/dL AST 22 (14-36) U/L ALT 19 (4-34) U/L Alkaline Phosphatase 143 H (38-126) U/L Total Protein 6.9 (6.3-8.2) g/dL Albumin 4.0 (3.5-5.0) g/dL Current Medications Generic Name Dose Route Start Last Admin Trade Name Freq PRN Reason Stop Dose Admin Sodium Chloride 1,000 mls @ 50 mls/hr 07/26/24 05:37 07/26/24 09:43 Saline 0.9% IV 08/25/24 05:36 50 mls/hr .Q20H PHILIPPE Administration Intake and Output 07/26/24 07/26/24 07/26/24 06:59 14:59 22:59 Intake Total 0 Balance 0 Intake: IV 0 Other: Weight 80.6 kg Patient Weight 07/27/24 06:59 Weight 80.6 kg 07/26/24 09:50
[2024-07-26] MEDS: ACETAMINOPHEN IV (For NPO) 1,000 MG in EMPTY BAG 1 BAG IVPB ONE (18:00)
--- NOTE | 2024-07-26 18:12 | P.EPPROC ---
- EP Procedure Note Electrophysiology Procedure Note: Diagnosis Recurrent SVT, long RP tachycardia Sick sinus syndrome Failure of medical treatment with flecainide and metoprolol to suppress the arrhythmia Final diagnosis Focal left atrial tachycardia along the anterior wall of the LA Successful RF ablation and termination of the tachycardia Thereafter, the tachycardia could not be reinduced Details Patient was brought to the EP lab in the fasting state. Written informed consent was obtained prior to the procedure. Venous sheaths were placed in the right left femoral veins. Diagnostic catheters were positioned in the high right atrium, His bundle area, coronary sinus and right ventricle Detail EP study was performed. In the baseline state only very brief episodes of SVT could be induced. This was a long RP tachycardia There was no evidence for slow pathway conduction No evidence for accessory pathway conduction Baseline AR interval 185 ms, QRS 106 ms, QT 433 ms. Sinus cycle length 984 ms AH interval 71 ms and HV interval 37 ms Sinus node recovery times were prolonged. Sinus node recovery x 1514, 1408, 1398 ms Corrected sinus node recovery times a prolonged AV node Wenckebach block 420 ms VA Wenckebach block 500 ms Retrograde conduction was midline and decremental Atrial extra stimulation was performed from the coronary sinus up to double extrastimuli as well as from the high right atrium Burst stimulation from the coronary sinus was performed Finally by the stimulation from the high right atrium induced nonsustained episodes of the SVT Isopril was then started and we were able to induce sustained arrhythmias. Ventricular pacing resulted in dissociation of the arrhythmia The short sheath from the right femoral vein was exchanged for a long sheath. A Penta ray catheter was placed in the right atrium Detailed right atrial mapping was performed. An activation map revealed the earliest site in the fossa ovalis. This was broad area of activation By this time it was difficult to reinduce the tachycardia. During the tachycardia the patient would become very uncomfortable and Isopril had to be stopped and the tachycardia had to be terminated with pacing maneuvers Intracardiac echo catheter was placed from the left femoral vein. The right ventricular diagnostic catheters placed in the high right atrium. Intracardiac echocardiography revealed mildly thickened pericardium, no pericardial effusion, normal-sized left atrium and no intracardiac thrombus Left and right transseptal catheterizations performed RA pressure 10/0/6 mmHg LA pressure 13/-6/4 mmHg A long sheath was placed in the left atrium Tachycardia was then induced once again. On low-dose Isopril and without Isopril only short burst could be induced. Therefore since the patient is symptomatic with the tachycardia, low dose Isopril was employed and with each induction, the tachycardia was mapped Activation mapping revealed the earliest activation site along the anterior wall of the left atrium. This of the mid anterior LA wall anterior to the left atrial appendage and away from both the roof and the mitral annulus. Excellent bipolar and unipolar electrograms that were early, 1 noted The Penta ray catheter was removed and an ablation catheter was placed. Further mapping was performed during induced episodes of tachycardia. The earliest site was tagged RF ablation was performed at the earliest site and this resulted in termination of the tachycardia RF ablations were performed around the region of the termination Thereafter but stimulation was performed from the high right atrium both on and off Isopril No further tachycardia was induced This is a long procedure requiring multiple inductions of the atrial tachycardia, mapping of the right atrium, mapping of the left atrium The patient Toller the procedure well without any acute complications Pericardium was unchanged at the end of the procedure LV function is normal Venous accesses were closed with vascular closure devices
[2024-07-26] MEDS ORDERED: ACETAMINOPHEN TAB 325 MG TAB PO PRN (21:00)
[2024-07-26] MEDS: APIXABAN 5 MG TAB PO SCH (21:01)
[2024-07-26] MEDS: TAMSULOSIN 0.4 MG CAP.ER.24H PO SCH (21:01)
[2024-07-26] MEDS: PANTOPRAZOLE 40 MG TABLET PO SCH (21:01)
[2024-07-27 07:39] VITALS: BP 127/77; PULSE 66; RESP 15; TEMP 98.7
[2024-07-27] MEDS: ATORVASTATIN 10 MG TAB PO SCH (08:52)
[2024-07-27] MEDS: LOSARTAN 50 MG TAB PO SCH (08:52)
[2024-07-27] MEDS: ASPIRIN 81 MG PO SCH (08:52)
[2024-07-27] MEDS: DAPAGLIFLOZIN PROPANEDIOL 5 MG TABLET PO SCH (08:52)
[2024-07-27] MEDS: PATIENT'S OWN (Vibegron [Gemtesa] 75 MG Tablet) PO SCH (08:54)
--- NOTE | 2024-07-28 20:10 | P.DS ---
Providers Attending physician: Frank Navarrete Primary care physician: [facility] Course: Patient is doing well post procedure Yesterday she underwent an EP study and ablation with successful ablation and termination of a focal atrial tachycardia from the anterior wall of the left atrium She has no chest discomfort dizziness lightheadedness or palpitations Heart sounds S1-S2 normal no murmurs to gallops or rub Breath sounds are clear Vitals are stable blood pressure 127/77 mmHg Impression Symptomatic focal atrial tachycardia originating from the anterior wall of the left atrium Status post successful ablation Underlying sick sinus syndrome Plan Stop metoprolol Flecainide is already been discontinued Continue anticoagulation Follow-up in a week Plan - Discharge Summary Discharge Rx Participant: No New Discharge Prescriptions: Continue RX: rOPINIRole HCL [Requip] 3 mg PO HS RX: Aspirin 81 mg PO DAILY RX: Atorvastatin [Lipitor] 10 mg PO DAILY RX: Pantoprazole Sodium [Protonix] 40 mg PO HS RX: Vibegron [Gemtesa] 75 mg PO DAILY RX: Losartan [Cozaar] 50 mg PO DAILY #30 tab Zinc Sulfate 15 66 mg PO DAILY RX: Apixaban [Eliquis] 5 mg PO BID RX: Dapagliflozin Propanediol [Farxiga] 0.5 tab PO DAILY #30 tab RX: Furosemide [Lasix] 20 mg PO DAILY PRN PRN Reason: Edema RX: Ipratropium Sullivan 0.06%Nasal [Atrovent Nasal 0.06%] 2 spray EA NOSTRIL BID PRN PRN Reason: Allergy Symptoms RX: Tamsulosin HCl [Flomax] 0.4 mg PO HS Discontinued RX: Metoprolol Succinate (ER) [Toprol XL] 0.5 tab PO DAILY Discharge Medication List RX: Aspirin 81 mg PO DAILY 02/26/15 [History] RX: rOPINIRole HCL [Requip] 3 mg PO HS 02/26/15 [History] RX: Atorvastatin [Lipitor] 10 mg PO DAILY 06/10/21 [History] RX: Pantoprazole Sodium [Protonix] 40 mg PO HS 08/23/21 [History] RX: Vibegron [Gemtesa] 75 mg PO DAILY 04/30/24 [History] RX: Losartan [Cozaar] 50 mg PO DAILY #30 tab 05/03/24 [Rx] RX: Furosemide [Lasix] 20 mg PO DAILY PRN 07/22/24 [History] RX: Ipratropium [place] 0.06%Nasal [Atrovent Nasal 0.06%] 2 spray EA NOSTRIL BID PRN 07/22/24 [History] Zinc Sulfate 15 66 mg PO DAILY 07/22/24 [History] RX: Apixaban [Eliquis] 5 mg PO BID 07/26/24 [History] RX: Tamsulosin HCl [Flomax] 0.4 mg PO HS 07/26/24 [History] RX: Dapagliflozin Propanediol [Farxiga] 0.5 tab PO DAILY #30 tab 07/27/24 [Rx] Follow up Appointment(s)/Referral(s): Frank Navarrete MD [STAFF PHYSICIAN] - 08/12/24 1:45 pm Patient Instructions/Handouts: Cardiac Ablation (DC) Activity/Diet/Wound Care/Special Instructions: Post EP study - Ablation instructions 1. Keep access sites dry for 2 days. 2. No heavy lifting or straining for 2 days. 3. Avoid bending the hips repeatedly for 2 days. 4. You may go up and down stairs slowly 5. If you have had an ablation for atrial fibrillation or atrial flutter and are on a blood thinner, do not stop the blood thinner even temporarily for 3 months post ablation Call if the following is noted 1. Bleeding, increasing swelling or pain at the access sites. 2. Increasing chest discomfort, especially upon taking a deep breath. 3. Increasing shortness of breath, at rest or with exertion. 4. Undue cough / phlegm 5. Difficulty or pain while swallowing. 6. Pain or change in color in the extremities. 7. Fever, chills, rigors. 8. Increasing headache or neurologic symptoms. 9. Dizziness, fainting, palpitations For patients who have undergone an A-fib ablation /atrial flutter ablation Strict instruction; do NOT stop anticoagulation (Eliquis/Xarelto/Pradaxa) for the next 2 months temporarily, for any elective, nonurgent surgery. This increases the risk of stroke, post A-fib ablation Discharge Disposition: HOME SELF-CARE
== END 2024-07-27 14:00 | disposition home or self-care (01) ==
LOC: CATHEP 09:18 → 6NMEDSUR 14:05 → CATHEP 07-27 14:00
PROVIDERS: ATTEND Internal Medicine Clinical Cardiac Electrophysiology
DX: I47.19 Other supraventricular tachycardia (principal); E11.9 Type 2 diabetes mellitus without complications; E78.5 Hyperlipidemia, unspecified; G47.33 Obstructive sleep apnea (adult) (pediatric); I10 Essential (primary) hypertension; I25.10 Atherosclerotic heart disease of native coronary artery without angina pectoris; I35.0 Nonrheumatic aortic (valve) stenosis; I44.1 Atrioventricular block, second degree; I49.5 Sick sinus syndrome; Z85.3 Personal history of malignant neoplasm of breast; Z85.43 Personal history of malignant neoplasm of ovary; Z90.49 Acquired absence of other specified parts of digestive tract; Z79.01 Long term (current) use of anticoagulants; Z79.82 Long term (current) use of aspirin; Z79.899 Other long term (current) drug therapy; Z90.721 Acquired absence of ovaries, unilateral; Z98.890 Other specified postprocedural states
CPT/HCPCS: 93462; 93623; 93662; 93653; 86900; 86901; 80053; 84443; 86850; C1894; C1769 ×2; C1760 ×2; C1730 ×3; C1731; C1759; C1732; J2250; J2720; J1644; J1100; J2003; J3010; J2704

== ENCOUNTER 2024-08-04 11:15 | Observation (INO) | payer MEDICARE ==
[2024-08-04] MEDS: ASPIRIN 81 MG PO STA (11:44)
[2024-08-04] MEDS: NITROGLYCERIN SL TABS 0.4 MG TAB SUBLINGUAL STA (11:44)
[2024-08-04 11:49] LABS: Basophils # (A) 0.01 10*3/uL (0.00-0.10); Basophils % (A) 0.2 %; Eosinophils # (A) 0.25 10*3/uL (0.04-0.35); Eosinophils % (A) 5.2 %; HCT 32.9 % (37.2-46.3); HGB 10.5 g/dL (12.0-15.0); Lymphocytes # (A) 1.45 10*3/uL (0.90-5.00); Lymphocytes % (A) 30.1 %; MCH 31.7 pg (27.0-32.0); MCHC 31.9 g/dL (32.0-37.0); MCV 99.4 fL (80.0-97.0); Mean Platelet Volume 9.2 fL (9.5-12.2); Monocytes # (A) 0.49 10*3/uL (0.20-1.00); Monocytes % (A) 10.2 %; Neutrophils % (A) 54.1 %; Platelet Count 192 10*3/uL (140-440); RBC 3.31 10*6/uL (4.10-5.20); RDW 14.6 % (11.5-14.5); WBC 4.81 10*3/uL (4.50-10.00)
[2024-08-04 12:08] LABS: Partial Thromboplastin Time 24.7 sec (22.0-30.0); Prothrombin Time 11.4 sec (10.0-12.5)
--- NOTE | 2024-08-04 12:49 | XR ---
EXAMINATION TYPE: XR chest 2V DATE OF EXAM: 08/04/2024 12:09 PM COMPARISON: Chest radiographs from 04/30/2024 CLINICAL INDICATION: Female, 79 years old with history of Chest Pain; [facility] TECHNIQUE: XR chest 2V Frontal and lateral views of the chest. FINDINGS: Lungs/Pleura: Prominent interstitial lung markings are seen scattered throughout the lungs. No eviden ce of focal consolidation, pneumothorax or pleural effusion. Pulmonary vascularity: Unremarkable. Heart/mediastinum: Cardiomediastinal silhouette is unremarkable. A loop recorder projects over the le ft thorax over the heart. Musculoskeletal: No acute osseous pathology. Left shoulder arthroplasty appears intact. Other findings: None IMPRESSION: Interstitial lung disease changes without acute pulmonary process. [facility], , 08/04/2024 12:47 PM
[2024-08-04 13:04] LABS: ALT 16 U/L (4-34); AST 19 U/L (14-36); African American GFR (CKD) 56 (>60 ml/min/1.73 sqM); Albumin 3.7 g/dL (3.5-5.0); Alkaline Phosphatase 141 U/L (38-126); Anion Gap 11 mmol/L; Blood Urea Nitrogen 21 mg/dL (7-17); Calcium 10.1 mg/dL (8.4-10.2); Carbon Dioxide 21 mmol/L (22-30); Chloride 108 mmol/L (98-107); Glucose 151 mg/dL (74-99); Magnesium 1.4 mg/dL (1.6-2.3); Non-African American GFR(CKD) 48 (>60 ml/min/1.73 sqM); Potassium 3.8 mmol/L (3.5-5.1); Sodium 140 mmol/L (137-145); Total Protein 6.4 g/dL (6.3-8.2)
[2024-08-04] MEDS ORDERED: ONDANSETRON 4 MG/2 ML VIAL IVP PRN (13:08)
[2024-08-04] MEDS ORDERED: NALOXONE 0.4 MG/ML 1 ML VIAL IV PRN (13:08)
--- NOTE | 2024-08-04 13:11 | ED ---
General Adult HPI - General Chief complaint: Chest Pain Stated complaint: Chest Pain Time Seen by Provider: 08/04/24 11:35 Source: patient, RN notes reviewed, old records reviewed Mode of arrival: wheelchair Limitations: no limitations - History of Present Illness Initial comments: Patient is a 79-year-old female presents emergency department complaining of chest pain. Patient has a past medical history remarkable for CHF. No history of cardiac stents or MIs. Also history of diabetes, hypertension, hyperlipidemia. History of supraventricular tachycardia with recent ablation. Patient states she she had some left-sided tightness in her chest that started yesterday. Occasionally does get it but it usually goes away. Was worse today and worse with exertion. Denies any significant shortness of breath. Denies any nausea or vomiting. Denies any diaphoretic episodes. Pain is described as a tightness and does not radiate. Located over the central and left side of her chest. Not reproduced on palpation or with movements. No known palliative provocative factors. Presents for further evaluation at this time. - Related Data Home Medications Medication Instructions Recorded Confirmed Aspirin 81 mg PO DAILY 02/26/15 07/26/24 rOPINIRole HCL [Requip] 3 mg PO HS 02/26/15 07/26/24 Atorvastatin [Lipitor] 10 mg PO DAILY 06/10/21 07/26/24 Pantoprazole Sodium [Protonix] 40 mg PO HS 08/23/21 07/26/24 Vibegron [Gemtesa] 75 mg PO DAILY 04/30/24 07/26/24 Furosemide [Lasix] 20 mg PO DAILY PRN 07/22/24 07/26/24 Ipratropium Somers 0.06%Nasal 2 spray EA NOSTRIL BID PRN 07/22/24 07/22/24 [Atrovent Nasal 0.06%] Zinc Sulfate 15 66 mg PO DAILY 07/22/24 07/26/24 Apixaban [Eliquis] 5 mg PO BID 07/26/24 07/26/24 Tamsulosin HCl [Flomax] 0.4 mg PO HS 07/26/24 07/26/24 Previous Rx's Medication Instructions Recorded Losartan [Cozaar] 50 mg PO DAILY #30 tab 05/03/24 Dapagliflozin Propanediol [Farxiga] 0.5 tab PO DAILY #30 tab 07/27/24 Allergies Allergy/AdvReac Type Severity Reaction Status Date / Time hydrocodone bitartrate AdvReac Nausea & Verified 07/26/24 09:45 [From Lortab] Vomiting Review of Systems ROS Statement: Those systems with pertinent positive or pertinent negative responses have been documented in the HPI. Review of Systems: CONST: Denies fever EYES: Denies blurry vision ENT: Denies nasal congestion C/V: Endorses chest pain RESP: Denies shortness of breath GI: Denies abdominal pain : Denies dysuria SKIN: Denies rash. MSK: Denies joint pain. NEURO: Denies headache ROS Other: All systems not noted in ROS Statement are negative. Past Medical History Past Medical History: Blood Disorder, Coronary Artery Disease (CAD), Cancer, Diabetes Mellitus, GERD/Reflux, GI Bleed, Hyperlipidemia, Hypertension, Supraventricular Tachycardia (SVT) Additional Past Medical History / Comment(s): breast cancer with chemo and bilateral mastectomy 2002. ANEMIA NEEDING BLOOD TRANSFUSION. History of Any Multi-Drug Resistant Organisms: None Reported Past Surgical History: Breast Surgery, Cholecystectomy, Heart Catheterization, Hernia Repair, Joint Replacement, Orthopedic Surgery Additional Past Surgical History / Comment(s): Bilateral knee replacements, cyst removal, Denis surgery, tubal and ovary removed, bilateral mastectomy, D&C with cyro for pre cancerous cells, varicose vein procedure, Loop recorder, left shoulder replacement and revision. Past Anesthesia/Blood Transfusion Reactions: Postoperative Nausea & Vomiting (PONV) Additional Past Anesthesia/Blood Transfusion Reaction / Comment(s): Has had blood transfusion with no reaction, slow to wake up and PONV. Past Psychological History: No Psychological Hx Reported Smoking Status: Never smoker Past Alcohol Use History: None Reported Past Drug Use History: None Reported - Past Family History Sister(s) Family Medical History: Deep Vein Thrombosis (DVT) Mother Additional Family Medical History / Comment(s): Heart problems. General Exam - General Exam Comments Initial Comments: General: Appears in no acute distress. HEAD: Normal with no signs of head trauma. EYES: EOMI ENT: Hearing grossly intact, normal oropharynx. RESPIRATORY: Clear breath sounds bilaterally. No wheezes, rales, or rhonchi. C/V: Regular rate and rhythm. S1 and S2 auscultated, no edema, peripheral pulses 2+ and intact throughout. Chest pain not reproducible on palpation. ABD: Abd is soft, nontender, nondistended EXT: no obvious deformity SKIN: No rashes or lesions observed on exposed skin. NEURO: Alert and oriented x 4. Limitations: no limitations Course Vital Signs 08/04/24 08/04/24 08/04/24 11:19 12:30 12:57 Temperature 98.3 F Pulse Rate 96 82 83 Respiratory 16 18 16 Rate Blood Pressure 114/77 121/67 124/73 O2 Sat by Pulse 98 96 98 Oximetry Medical Decision Making - Medical Decision Making Was pt. sent in by a medical professional or institution (, PA, RECORDS MANAGEMENT ANALYST, urgent care, hospital, or [place] health care facility...) When possible be specific @ -No Did you speak to anyone other than the patient for history (EMS, parent, family, police, friend...)? What history was obtained from this source @ -No Did you review nursing and triage notes (agree or disagree)? Why? @ -I reviewed and agree with nursing and triage notes Were old charts reviewed (outside hosp., previous admission, EMS record, old EKG, old radiological studies, urgent care reports/EKG's, [place] health care facility records)? Report findings @ -Compared today's EKG from July 2024 with no significant acute change. Differential Diagnosis (chest pain, altered mental status, abdominal pain women, abdominal pain men, vaginal bleeding, weakness, fever, dyspnea, syncope, headache, dizziness, GI bleed, back pain, seizure, CVA, palpatations, mental health, musculoskeletal)? @ -Differential Chest Pain: Stable Angina, Unstable Angina, STEMI, NSTEMI Aortic Dissection, Pneumothorax, Musculoskeletal, Esophageal Spasm GERD, Cholecystitis, Pancreatitis, Zoster, this is not meant to be an all-inclusive list. EKG interpreted by me (3pts min.). @ -As above X-rays interpreted by me (1pt min.). @ -Chest x-ray reveals no obvious acute cardiopulmonary process. CT interpreted by me (1pt min.). @ -None done U/S interpreted by me (1pt. min.). @ -None done What testing was considered but not performed or refused? (CT, X-rays, U/S, labs)? Why? @ -None What meds were considered but not given or refused? Why? @ -None Did you discuss the management of the patient with other professionals (professionals i.e. , PA, RECORDS MANAGEMENT ANALYST, lab, RT, psych nurse, social human services assistants, optometric technician, teacher, commissioned fire officer, patient case coordinator)? Give summary @ -I spoke with the admitting provider, Dr. Brown who accepted the admission. Was smoking cessation discussed for >3mins.? @ -No Was critical care preformed (if so, how long)? @ -No Were there social determinants of health that impacted care today? How? (Homelessness, low income, unemployed, alcoholism, drug addiction, transportation, low edu. Level, literacy, decrease access to med. care, senior living, rehab)? @ -No Was there de-escalation of care discussed even if they declined (Discuss DNR or withdrawal of care, Hospice)? DNR status @ -No What co-morbidities impacted this encounter? (DM, HTN, Smoking, COPD, CAD, Cancer, CVA, ARF, Chemo, Hep., AIDS, mental health diagnosis, sleep apnea, morbid obesity)? @ -None Was patient admitted / discharged? Hospital course, mention meds given and route, prescriptions, significant lab abnormalities, going to OR and other pertinent info. @ -Based on patient's presentation physical exam, presents emergency department complaint of chest pain. Describes it as a 5 out of 10. Tightness. We will obtain cardiac workup. Patient given nitro as well as 324 mg of aspirin. She was in agreement this plan. Vitals are within acceptable limits. EKG shows no signs of acute ischemia. Chest x-ray unremarkable. Laboratory studies remarkable for chronic anemia with a hemoglobin of 10.5 which does appear to be within the patient's baseline. Patient's troponin is undetectable. Patient is mildly hypomagnesium at 1.4. BNP within acceptable limits for the patient's age. On reevaluation, patient's chest pain improved with nitro. Patient will be placed on Nitropaste and admitted to observation. She was in agreement this plan. I spoke with the admitting provider, Dr. Brown who accepted the admission. Undiagnosed new problem with uncertain prognosis? @ -No Drug Therapy requiring intensive monitoring for toxicity (Heparin, Nitro, Insulin, Cardizem)? @ -No Were any procedures done? @ -No Diagnosis/symptom? @ -Chest pain Acute, or Chronic, or Acute on Chronic? @ -Acute Uncomplicated (without systemic symptoms) or Complicated (systemic symptoms)? @ -Complicated Side effects of treatment? @ -No Exacerbation, Progression, or Severe Exacerbation? @ -No Poses a threat to life or bodily function? How? (Chest pain, USA, SC, pneumonia, PE, COPD, DKA, ARF, appy, cholecystitis, CVA, Diverticulitis, Homicidal, Suicidal, threat to staff... and all critical care pts) @ -Potentially, yes - Lab Data Result diagrams: 08/04/24 11:45 08/04/24 11:45 Lab Results 08/04/24 08/04/24 08/04/24 Range/Units 11:45 11:45 11:45 WBC 4.81 (4.50-10.00) 10*3/uL RBC 3.31 L (4.10-5.20) 10*6/uL Hgb 10.5 L (12.0-15.0) g/dL Hct 32.9 L (37.2-46.3) % MCV 99.4 H (80.0-97.0) fL MCH 31.7 (27.0-32.0) pg MCHC 31.9 L (32.0-37.0) g/dL Plt Count 192 (140-440) 10*3/uL MPV 9.2 L (9.5-12.2) fL Immature Gran % (Auto) 0.2 % Neutrophils % 54.1 % Lymphocytes % 30.1 % Monocytes % 10.2 % Eosinophils % 5.2 % Basophils % 0.2 % Immature Gran # 0.01 (0.00-0.04) 10*3/uL Neutrophils # 2.60 (1.80-7.70) 10*3/uL Lymphocytes # 1.45 (0.90-5.00) 10*3/uL Monocytes # 0.49 (0.20-1.00) 10*3/uL Eosinophils # 0.25 (0.04-0.35) 10*3/uL Basophils # 0.01 (0.00-0.10) 10*3/uL PT 11.4 (10.0-12.5) sec INR 1.0 (<1.2) APTT 24.7 (22.0-30.0) sec Sodium 140 (137-145) mmol/L Potassium 3.8 (3.5-5.1) mmol/L Chloride 108 H (98-107) mmol/L Carbon Dioxide 21 L (22-30) mmol/L Anion Gap 11 mmol/L BUN 21 H (7-17) mg/dL Creatinine 1.10 H (0.52-1.04) mg/dL Est GFR (CKD-EPI)AfAm 56 (>60 ml/min/1.73 sqM) Est GFR (CKD-EPI)NonAf 48 (>60 ml/min/1.73 sqM) Glucose 151 H (74-99) mg/dL Calcium 10.1 (8.4-10.2) mg/dL Magnesium 1.4 L (1.6-2.3) mg/dL Total Bilirubin 1.0 (0.2-1.3) mg/dL AST 19 (14-36) U/L ALT 16 (4-34) U/L Alkaline Phosphatase 141 H (38-126) U/L Troponin I (0.000-0.034) ng/mL NT-Pro-B Natriuret Pep 1250 pg/mL Total Protein 6.4 (6.3-8.2) g/dL Albumin 3.7 (3.5-5.0) g/dL / Range/Units 11:45 WBC (4.50-10.00) 10*3/uL RBC (4.10-5.20) 10*6/uL Hgb (12.0-15.0) g/dL Hct (37.2-46.3) % MCV (80.0-97.0) fL MCH (27.0-32.0) pg MCHC (32.0-37.0) g/dL Plt Count (140-440) 10*3/uL MPV (9.5-12.2) fL Immature Gran % (Auto) % Neutrophils % % Lymphocytes % % Monocytes % % Eosinophils % % Basophils % % Immature Gran # (0.00-0.04) 10*3/uL Neutrophils # (1.80-7.70) 10*3/uL Lymphocytes # (0.90-5.00) 10*3/uL Monocytes # (0.20-1.00) 10*3/uL Eosinophils # (0.04-0.35) 10*3/uL Basophils # (0.00-0.10) 10*3/uL PT (10.0-12.5) sec INR (<1.2) APTT (22.0-30.0) sec Sodium (137-145) mmol/L Potassium (3.5-5.1) mmol/L Chloride (98-107) mmol/L Carbon Dioxide (22-30) mmol/L Anion Gap mmol/L BUN (7-17) mg/dL Creatinine (0.52-1.04) mg/dL Est GFR (CKD-EPI)AfAm (>60 ml/min/1.73 sqM) Est GFR (CKD-EPI)NonAf (>60 ml/min/1.73 sqM) Glucose (74-99) mg/dL Calcium (8.4-10.2) mg/dL Magnesium (1.6-2.3) mg/dL Total Bilirubin (0.2-1.3) mg/dL AST (14-36) U/L ALT (4-34) U/L Alkaline Phosphatase (38-126) U/L Troponin I 0.013 (0.000-0.034) ng/mL NT-Pro-B Natriuret Pep pg/mL Total Protein (6.3-8.2) g/dL Albumin (3.5-5.0) g/dL - EKG Data -: EKG Interpreted by Me EKG Comments: 12-lead Electrocardiogram Interpretation Note EKG was reviewed and interpreted by myself. 12-lead ECG performed at 1129 is interpreted by me as revealing normal sinus rhythm at a rate of 87 beats per minute. Keiser is normal. NM interval is 160 ms, QRS duration is 93 ms, QTc is 426 ms. Patient has an incomplete right bundle branch block.. There were no ST or T wave abnormalities to suggest myocardial ischemia or injury. R wave progression across the precordium was delayed. By my interpretation this EKG is non-diagnostic for acute ischemia. Disposition Clinical Impression: Chest pain Disposition: ADMITTED IP TO THIS HOSP Condition: Stable Time of Disposition: 13:10
[2024-08-04 13:13] LABS: NT-Pro-B-Type Natriuretic Pept 1250 pg/mL
[2024-08-04] MEDS: NITROGLYCERIN OINT 1 INCH/GM PACKET TOPICAL SCH (13:26)
[2024-08-04] MEDS: MAGNESIUM SULFATE-D5W PMX 1 GM in DEXTROSE/WATER 1 100ML.BAG IVPB ONE (13:36)
[2024-08-04 19:54] LABS: Glucose,Whole Blood 219 mg/dL (70-110)
--- NOTE | 2024-08-05 00:12 | HP ---
HISTORY AND PHYSICAL CHIEF COMPLAINT: Chest pain. HISTORY OF PRESENT ILLNESS: This is a 79-year-old woman with a past medical history of multiple medical problems including CAD, SVT also had ablations previously. Currently, the patient is complaining of chest discomfort and pressure type of sensation, anterior part of chest, which is also aggravated by ambulation. Currently, the patient is complaining of pain about 3/10 and the initial troponin was 0.013. EKG did not show acute changes. The patient was admitted for further evaluation and treatment. There is no history of fever, rigors, or chills. Cardiology will be consulted. PAST MEDICAL HISTORY: History of CAD, history of atrial fibrillation, ablation. Rest of the history and chart is also reviewed. HOME MEDICATIONS: Reviewed include Requip. Dose and rest of medications reviewed. ALLERGIES: Lortab. FAMILY HISTORY: History of DVT, heart problems. SOCIAL HISTORY: No history of smoking or alcohol intake. REVIEW OF SYSTEMS: Fourteen-point review of systems negative except as mentioned earlier. PHYSICAL EXAMINATION: VITAL SIGNS: Pulse is 83, blood pressure 124/70, respirations 16. HEENT: Conjunctivae normal. NECK: No JVD. CARDIOVASCULAR: S1, S2 N. ABDOMEN: Soft, nontender. LEGS: No edema. No swelling. NERVOUS SYSTEM: No focal deficit. LABORATORY DATA: Reviewed. ASSESSMENT: 1. Chest pain, possible unstable angina, rule out acute myocardial infarction. 2. Elevated creatinine is 1.101. 3. History of coronary artery disease. 4. History of supraventricular tachycardia and ablation. 5. Diabetes mellitus type 2. 6. Hypertension. 7. Hyperlipidemia. 8. Multiple complex medical issues. RECOMMENDATIONS: Recommend to continue current symptomatic treatment. Myocardial infarction, unstable angina protocol. Resume the home medications once they are confirmed. Repeat labs will be ordered. Prognosis guarded because of multiple complex medical issues, and for further recommendations, we will see orders for further details. MMODL / IJN: [id number] / MTDD
[2024-08-05 05:58] LABS: Glucose,Whole Blood 98 mg/dL (70-110)
[2024-08-05 08:06] LABS: Basophils # (A) 0.02 X 10*3/uL (0.00-0.10); Basophils % (A) 0.4 %; Eosinophils % (A) 6.3 %; HCT 33.6 % (37.2-46.3); HGB 10.4 g/dL (12.0-15.0); Lymphocytes # (A) 1.99 X 10*3/uL (0.90-5.00); Lymphocytes % (A) 41.8 %; MCH 31.4 pg (27.0-32.0); MCV 101.5 FL (80.0-97.0); Mean Platelet Volume 9.9 FL (9.5-12.2); Monocytes % (A) 12.6 %; NRBC Per 100 WBC 0 X 10*3/uL (0.00-0.01); Neutrophils # (A) 1.84 X 10*3/uL (1.80-7.70); Neutrophils % (A) 38.7 %; Platelet Count 223 X 10*3/uL (140-440); RBC 3.31 X 10*6/uL (4.10-5.20); RDW 14.4 % (11.5-14.5); WBC 4.76 X 10*3/uL (4.50-10.00)
[2024-08-05 08:17] LABS: ALT 14 U/L (8-44); AST 18 U/L (13-35); Albumin 3.7 g/dL (3.8-4.9); Albumin/Globulin Ratio 1.54 Ratio (1.60-3.17); Alkaline Phosphatase 97 U/L (41-126); Blood Urea Nitrogen 20.6 mg/dL (9.0-27.0); Calcium 9.5 mg/dL (8.7-10.3); Carbon Dioxide 23.9 mmol/L (21.6-31.8); Chloride 109 mmol/L (96-109); Globulin 2.4 g/dL (1.6-3.3); Glucose 112 mg/dL (70-110); Potassium 3.8 mmol/L (3.5-5.5); Sodium 144 mmol/L (135-145); Total Bilirubin 0.5 mg/dL (0.3-1.2); Total Protein 6.1 g/dL (6.2-8.2)
[2024-08-05] MEDS ORDERED: REGADENOSON 0.4 MG/5 ML SYRINGE IV PRN (10:05)
[2024-08-05] MEDS ORDERED: CAFFEINE CITRATE 60 MG/3 ML VIAL IV PRN (10:05)
[2024-08-05] MEDS ORDERED: AMINOPHYLLINE 500 MG/20 ML VIAL IV PRN (10:05)
[2024-08-05] MEDS: METOPROLOL TARTRATE 25 MG TAB PO SCH (10:19)
[2024-08-05 11:07] LABS: T4, Free (Free Thyroxine) 1.49 ng/dL (0.78-2.19)
[2024-08-05 12:04] LABS: Glucose,Whole Blood 179 mg/dL (70-110)
--- NOTE | 2024-08-05 13:27 | CA ---
Transthoracic Echo Report Name: Minerva Stone Age: 79 Gender: F : 1945 Exam Date: 08/05/2024 10:50 Exam Location: [facility] Ht (in): 63 Wt (lb): 180 Ordering Physician: Tian Robles MD Attending/Referring Phys: Baggagemaster Huma Pruitt RDCS Procedure CPT: Indications: Chest Pain Cardiac Hx: Technical Quality: Fair Contrast 1: Total Dose (mL): Contrast 2: Total Dose (mL): MEASUREMENTS (Male / Female) Normal Values 2D ECHO LV Diastolic Diameter PLAX 4.5 cm 4.2 - 5.9 / 3.9 - 5.3 cm LV Systolic Diameter PLAX 3.1 cm IVS Diastolic Thickness 0.9 cm 0.6 - 1.0 / 0.6 - 0.9 cm LVPW Diastolic Thickness 0.9 cm 0.6 - 1.0 / 0.6 - 0.9 cm LV Relative Wall Thickness 0.4 LVOT Diameter 2.2 cm Aortic Root Diameter 3.0 cm LV Diastolic Volume MOD BP 80.5 cm??? 67 - 155 / 56 - 104 cm??? LV Systolic Volume MOD BP 30.5 cm??? 22 - 58 / 19 - 49 cm??? LV Ejection Fraction MOD BP 62.1 % >= 55 % LV Cardiac Index MOD BP 2247.4 cm???/min???m??? LV Diastolic Volume MOD 4C 84.8 cm??? LV Systolic Volume MOD 4C 33.6 cm??? LV Ejection Fraction MOD 4C 60.4 % LV Cardiac Index MOD 4C 2303.8 cm???/min???m??? LV Diastolic Length 4C 7.3 cm LV Systolic Length 4C 5.6 cm LV Diastolic Volume MOD 2C 61.3 cm??? LV Systolic Volume MOD 2C 23.6 cm??? LV Ejection Fraction MOD 2C 61.6 % LV Cardiac Index MOD 2C 1695.5 cm???/min???m??? LV Diastolic Length 2C 5.8 cm LV Systolic Length 2C 4.7 cm LA Volume 51.0 cm??? 18 - 58 / 22 - 52 cm??? LA Volume Index 26.3 cm???/m??? 16 - 28 cm???/m??? Ascending Aorta Diameter 3.7 cm DOPPLER AV Peak Velocity 305.1 cm/s AV Peak Gradient 37.2 mmHg AV Mean Velocity 208.9 cm/s AV Mean Gradient 19.3 mmHg AV Velocity Time Integral 65.1 cm LVOT Peak Velocity 107.9 cm/s LVOT Peak Gradient 4.7 mmHg LVOT Velocity Time Integral 21.4 cm LVOT Stroke Volume 84.7 cm??? LVOT Stroke Volume Index 45.8 ml/m??? LVOT Cardiac Index 3804.9 cm???/min???m??? AV Area Cont Eq vti 1.3 cm??? AV Area Cont Eq pk 1.4 cm??? MV Peak Velocity 137.2 cm/s MV Peak Gradient 7.5 mmHg MV Mean Velocity 79.8 cm/s MV Mean Gradient 2.9 mmHg MV Velocity Time Integral 24.5 cm MV Area PHT 5.0 cm??? Mitral E Point Velocity 84.7 cm/s Mitral A Point Velocity 126.2 cm/s Mitral E to A Ratio 0.7 MV Deceleration Time 151.1 ms PV Peak Velocity 93.9 cm/s PV Peak Gradient 3.5 mmHg FINDINGS Left Ventricle Left ventricular ejection fraction is estimated at 55-60 %. Left ventricular cavity size normal. Left ventricular wall thickness normal. No obvious regional wall motion abnormalities. Right Ventricle Normal right ventricular size and function. Unable to estimate the right ventricular systolic pressure. Right Atrium Normal right atrial size. Left Atrium Normal left atrial size. Mitral Valve Mitral valve thickened. Mitral annular calcification. No evidence for mitral valve prolapse. Mild mitral stenosis. Mild mitral regurgitation. Aortic Valve Trileaflet aortic valve. Diffuse thickening of the aortic valve cusps with reduced excursion. Moderate aortic stenosis with a peak gradient of 37 mmHg and Tricuspid Valve Structurally normal tricuspid valve. No tricuspid stenosis. Trace tricuspid regurgitation. Pulmonic Valve Structurally normal pulmonic valve. No pulmonic stenosis. Trace pulmonic regurgitation. Pericardium No pericardial effusion Aorta Normal size aortic root and proximal ascending aorta. CONCLUSIONS Normal LV size and systolic function with mild concentric LVH. Right-sided pressures are not well quantified. There is mitral annular calcification with nonspecific thickening of anterior mitral leaflet. Mild mitral regurgitation. Aortic valve sclerosis with mild restriction mean gradient of about 15 to 20 mmHg. No clear-cut pericardial effusion Previewed by: Dr. Geno Batista MD (Electronically Signed) Final Date: 05 Aug 2024 13:26
[2024-08-05] MEDS ORDERED: FUROSEMIDE 20 MG TAB PO PRN (17:06)
[2024-08-05] MEDS ORDERED: DEXTROSE 50% SYRINGE 50 ML IVP PRN ×2 (17:17)
[2024-08-05 17:29] LABS: Glucose,Whole Blood 92 mg/dL (70-110)
[2024-08-05] MEDS: INSULIN LISPRO (HumaLOG) 100 UNIT/ML 10 mL VL SQ SCH (17:45)
[2024-08-05] MEDS: NON FORMULARY DRUG (Vibegron [Gemtesa] 75 MG Tablet) PO SCH (17:45)
[2024-08-05] MEDS: ZINC SULFATE 220 MG CAP PO SCH (18:06)
[2024-08-05] MEDS: ATORVASTATIN 10 MG TAB PO SCH (18:06)
--- NOTE | 2024-08-05 18:16 | P.CRDCN ---
History of Present Illness Consult date: 08/05/24 History of present illness: - . HPI: This is a 79-year-old lady who has been admitted to the hospital with chest pain and pressure retrosternal that started yesterday and has had for the last 36 hours. Quality of pain seems concerning but troponin levels are normal. On July 26 she underwent a SVT ablation by Dr. Navarrete uneventfully was discharged home on Eliquis 5 mg twice daily as well. She complains of pressure and heaviness in the chest that occurred when she was doing activity but resting at this time has no. She also has a pleuritic sharp chest pain as well. Troponins are unremarkable. Given her presentation and recent procedure I will do an echocardiogram and if this is normal we will consider performing a Lexiscan stress test on Thursday I discussed my thoughts in detail with the patient. I will not place her on heparin until I see the echocardiogram. She is resting comfortably without symptoms at this time. She insist that her last stress test was done several years ago but I do not have access to her records at this time. RELEVANT PAST MEDICAL HISTORY: History of recent ablation for SVT/atrial tachycardia, hypertension hyperlipidemia. No documented evidence of CAD.. MEDICATIONS: Apixaban Flomax losartan Lasix Lipitor aspirin ALLERGIES: Hydrocodone. REVIEW OF SYSTEMS: Remarkable for chest pressure some pleuritic component as well some shortness of breath no palpitations or syncope. PHYSICIAL EXAM: Vitals are stable no JVD S1-S2 heard normally no pericardial rub, there is a short systolic murmur at the base second heart sound is preserved, lungs reveal decent air entry abdomen is soft nontender lower extremities reveal diminished pulses Central nervous system is normal. EKG revealed sinus mechanism but rhythm strips review some sinus tachycardia with activity.. IMPRESSION: 1. Chest pain cannot exclude angina also has a pleuritic component. 2. Recent radiofrequency ablation for atrial tachycardia. 3. Benign hypertension. 4. Hypercholesterolemia. 5.. RECOMMENDATIONS: I am recommending an echocardiogram to be performed and if there is no effusion I will initiate her on subcu heparin and consider Lexiscan stress test on Thursday. Patient has some sick sinus syndrome type picture according to the note but I will place her on a small dose of metoprolol tartrate 25 mg daily and check thyroid function tests as well. She has sinus tachycardia with minimal activity... Past Medical History Past Medical History: Blood Disorder, Coronary Artery Disease (CAD), Cancer, Catalina betes Mellitus, GERD/Reflux, GI Bleed, Hyperlipidemia, Hypertension, Supraventricular Tachycardia (SVT) Additional Past Medical History / Comment(s): breast cancer with chemo and bilateral mastectomy 2002. ANEMIA NEEDING BLOOD TRANSFUSION. History of Any Multi-Drug Resistant Organisms: None Reported Past Surgical History: Breast Surgery, Cholecystectomy, Heart Catheterization, Hernia Repair, Joint Replacement, Orthopedic Surgery Additional Past Surgical History / Comment(s): Bilateral knee replacements, cyst removal, Denis surgery, tubal and ovary removed, bilateral mastectomy, D&C with cyro for pre cancerous cells, varicose vein procedure, Loop recorder, left shoulder replacement and revision. Past Anesthesia/Blood Transfusion Reactions: Postoperative Nausea & Vomiting (PONV) Additional Past Anesthesia/Blood Transfusion Reaction / Comment(s): Has had blood transfusion with no reaction, slow to wake up and PONV. Past Psychological History: No Psychological Hx Reported Smoking Status: Never smoker Past Alcohol Use History: None Reported Past Drug Use History: None Reported - Past Family History Sister(s) Family Medical History: Deep Vein Thrombosis (DVT) Mother Additional Family Medical History / Comment(s): Heart problems. Medications and Allergies Home Medications Medication Instructions Recorded Confirmed Type Aspirin 81 mg PO DAILY 02/26/15 08/04/24 History rOPINIRole HCL [Requip] 3 mg PO HS 02/26/15 08/04/24 History Atorvastatin [Lipitor] 10 mg PO DAILY 06/10/21 08/04/24 History Pantoprazole Sodium [Protonix] 40 mg PO HS 08/23/21 08/04/24 History Vibegron [Gemtesa] 75 mg PO DAILY 04/30/24 08/04/24 History Furosemide [Lasix] 20 mg PO DAILY PRN 07/22/24 08/04/24 History Apixaban [Eliquis] 5 mg PO BID@0830,199907/26/24 08/04/24 History Tamsulosin HCl [Flomax] 0.4 mg PO HS 07/26/24 08/04/24 History Losartan Potassium [Cozaar] 50 mg PO DAILY 08/04/24 08/04/24 History Zinc Gluconate [Zinc] 50 mg PO DAILY 08/04/24 08/04/24 History Allergies Allergy/AdvReac Type Severity Reaction Status Date / Time hydrocodone bitartrate AdvReac Nausea & Verified 08/04/24 13:44 [From Lortab] Vomiting Physical Exam Vitals: Vital Signs Temp Pulse Resp BP Pulse Ox 08/05/24 14:45 97.6 F 77 17 161/84 98 08/05/24 09:12 97 08/05/24 07:00 98.2 F 84 15 129/68 99 08/05/24 00:49 98.3 F 74 16 127/74 95 08/04/24 19:47 98.2 F 93 16 121/80 97 08/04/24 18:34 98.3 F 84 114/74 94 L Intake and Output 08/05/24 08/05/24 08/05/24 06:59 14:59 22:59 Other: Voiding Method Toilet # Voids 2 1 Results 08/05/24 05:23 08/05/24 05:16 Cardiac Enzymes 08/04/24 08/05/24 Range/Units 17:22 05:16 AST 18 (13-35) U/L Troponin I 0.029 (0.000-0.034) ng/mL CBC 08/05/24 Range/Units 05:23 WBC 4.76 (4.50-10.00) X 10*3/uL RBC 3.31 L (4.10-5.20) X 10*6/uL Hgb 10.4 L (12.0-15.0) g/dL Hct 33.6 L (37.2-46.3) % Plt Count 223 (140-440) X 10*3/uL Comprehensive Metabolic Panel 08/05/24 Range/Units 05:16 Sodium 144 (135-145) mmol/L Potassium 3.8 (3.5-5.5) mmol/L Chloride 109 (96-109) mmol/L Carbon Dioxide 23.9 (21.6-31.8) mmol/L BUN 20.6 (9.0-27.0) mg/dL Creatinine 1.0 (0.6-1.5) mg/dL Glucose 112 H (70-110) mg/dL Calcium 9.5 (8.7-10.3) mg/dL AST 18 (13-35) U/L ALT 14 (8-44) U/L Alkaline Phosphatase 97 (41-126) U/L Total Protein 6.1 L (6.2-8.2) g/dL Albumin 3.7 L (3.8-4.9) g/dL Current Medications Generic Name Dose Route Start Last Admin Trade Name Freq PRN Reason Stop Dose Admin Apixaban 5 mg 08/05/24 20:00 Apixaban 5 Mg Tab PO BID@0830,2000 [facility] Protocol Aspirin 81 mg 08/06/24 09:00 Aspirin 81 Mg PO DAILY [facility] Atorvastatin Calcium 10 mg 08/05/24 17:15 08/05/24 18:06 Atorvastatin 10 Mg Tab PO 10 mg DAILY [facility] Administration Dextrose/Water 25 ml 08/05/24 17:17 Dextrose 50% Syringe 50 Ml IVP PER PROTOCOL PRN Hypoglycemia Protocol Dextrose/Water 50 ml 08/05/24 17:17 Dextrose 50% Syringe 50 Ml IVP PER PROTOCOL PRN Hypoglycemia Protocol Furosemide 20 mg 08/05/24 17:06 Furosemide 20 Mg Tab PO DAILY PRN Edema Insulin Human Lispro 0 unit 08/05/24 17:30 08/05/24 17:45 Insulin Lispro (Humalog) 100 Unit/Ml 10 Ml Vl SQ Not Given ACHS [facility] Protocol Losartan Potassium 50 mg 08/06/24 09:00 Losartan 50 Mg Tab PO DAILY [facility] Metoprolol Tartrate 25 mg 08/05/24 10:15 08/05/24 10:19 Metoprolol Tartrate 25 Mg Tab PO 25 mg DAILY [facility] Administration Naloxone HCl 0.2 mg 08/04/24 13:08 Naloxone 0.4 Mg/Ml 1 Ml Vial IV Q2M PRN Opioid Reversal Nitroglycerin 0.5 inch 08/04/24 13:00 08/05/24 14:47 Nitroglycerin Oint 1 Inch/Gm Packet TOPICAL Not Given Q8H [facility] Non-Formulary Medication 75 mg 08/05/24 17:15 08/05/24 17:45 Vibegron [Gemtesa] PO Not Given DAILY [facility] Ondansetron HCl 4 mg 08/04/24 13:08 Ondansetron 4 Mg/2 Ml Vial IVP Q8HR PRN Nausea And Vomiting Pantoprazole Sodium 40 mg 08/05/24 21:00 Pantoprazole 40 Mg Tablet PO HS [facility] Ropinirole HCl 3 mg 08/05/24 21:00 Ropinirole Hcl 1 Mg Tab PO HS [facility] Tamsulosin HCl 0.4 mg 08/05/24 21:00 Tamsulosin 0.4 Mg Cap.Er.24h PO HS [facility] Zinc Sulfate 220 mg 08/05/24 17:15 08/05/24 18:06 Zinc Sulfate 220 Mg Cap PO 220 mg DAILY [facility] Administration Intake and Output 08/05/24 08/05/24 08/05/24 06:59 14:59 22:59 Other: Voiding Method Toilet # Voids 2 1 08/05/24 05:23 08/05/24 05:16
[2024-08-05] MEDS: LOSARTAN 50 MG TAB PO STA (18:31)
[2024-08-05 20:15] LABS: Glucose,Whole Blood 117 mg/dL (70-110)
[2024-08-05] MEDS: PANTOPRAZOLE 40 MG TABLET PO SCH (20:49)
[2024-08-05] MEDS: TAMSULOSIN 0.4 MG CAP.ER.24H PO SCH (20:50)
[2024-08-05] MEDS: APIXABAN 5 MG TAB PO SCH (20:50)
[2024-08-05] MEDS ORDERED: HEPARIN SODIUM,PORCINE 5,000 UNIT/ML 1 ML VIAL SQ SCH (21:00)
--- NOTE | 2024-08-06 02:36 | PN ---
PROGRESS NOTE DATE OF SERVICE: 08/05/2024 SUBJECTIVE: This is a 79-year-old woman, who was admitted with chest pain, had an exertional component to the chest pain. Cardiology is following the patient closely. A 2D echo with Doppler showed normal LV function as well as aortic valve sclerosis. No palpitation. Today's EKG did show some ST-T changes. OBJECTIVE: VITAL SIGNS: Pulse is 77, blood pressure 161/80, and respirations 17. CHEST: Clear to auscultation. ABDOMEN: Soft. NEUROLOGIC: No stroke. LABORATORY DATA: Reviewed. ASSESSMENT: 1. Chest pain, possible unstable angina, rule out acute myocardial infarction. 2. Elevated creatinine of 1.10. 3. History of coronary artery disease. 4. History of supraventricular tachycardia and ablation. 5. Diabetes mellitus type 2. 6. Hypertension. 7. Hyperlipidemia. 8. Multiple complex medical issues. RECOMMENDATIONS AND DISCUSSION: I recommend to continue current management and treatment. Otherwise, at this time, I would recommend continue with antiplatelet agents, beta-blockers. Closely follow with Cardiology. Guarded prognosis. Further recommendations to follow. MMODL / IJN: [id number] /
[2024-08-06 06:10] LABS: Glucose,Whole Blood 117 mg/dL (70-110)
[2024-08-06 07:15] LABS: Basophils # (A) 0.01 10*3/uL (0.00-0.10); Basophils % (A) 0.2 %; Eosinophils # (A) 0.26 10*3/uL (0.04-0.35); Eosinophils % (A) 6.1 %; HCT 31.6 % (37.2-46.3); HGB 10.2 g/dL (12.0-15.0); Lymphocytes # (A) 1.55 10*3/uL (0.90-5.00); Lymphocytes % (A) 36.6 %; MCH 32.3 pg (27.0-32.0); MCHC 32.3 g/dL (32.0-37.0); Mean Platelet Volume 9.2 fL (9.5-12.2); Monocytes # (A) 0.47 10*3/uL (0.20-1.00); Monocytes % (A) 11.1 %; Neutrophils # (A) 1.94 10*3/uL (1.80-7.70); Platelet Count 206 10*3/uL (140-440); RBC 3.16 10*6/uL (4.10-5.20); RDW 14.2 % (11.5-14.5); WBC 4.23 10*3/uL (4.50-10.00)
[2024-08-06 07:50] LABS: African American GFR (CKD) 64 (>60 ml/min/1.73 sqM); Anion Gap 7 mmol/L; Blood Urea Nitrogen 26 mg/dL (7-17); Calcium 9.5 mg/dL (8.4-10.2); Carbon Dioxide 24 mmol/L (22-30); Chloride 108 mmol/L (98-107); Glucose 127 mg/dL (74-99); Non-African American GFR(CKD) 55 (>60 ml/min/1.73 sqM); Potassium 3.8 mmol/L (3.5-5.1); Sodium 139 mmol/L (137-145)
[2024-08-06] MEDS: ASPIRIN 81 MG PO SCH (08:01)
[2024-08-06] MEDS: LOSARTAN 50 MG TAB PO SCH (08:11)
--- NOTE | 2024-08-06 11:44 | P.PN ---
Subjective Progress Note Date: 08/06/24 This is a 79-year-old female patient who was admitted to the hospital with chest discomfort and ruled out for acute coronary syndrome and she is scheduled to undergo a stress test this coming Thursday. Also she has history of atrial tachycardia status post ablation before. She was seen and evaluated this morning which she is asymptomatic at this point. The physical examination is remarkable for regular rhythm with a systolic murmur at the right upper sternal border with clear breathing sounds bilaterally and no edema was noted Assessment Atypical chest discomfort History of atrial tachycardia status post ablation Multiple comorbid conditions Plan Continue the current medical regimen Proceed with stress test on Thursday Objective - Vital Signs Vital signs: Vital Signs Temp 98.2 F 08/06/24 07:00 Pulse 150 H 08/06/24 07:50 Resp 16 08/06/24 07:50 BP 113/70 08/06/24 07:00 Pulse Ox 97 08/06/24 07:00 FiO2 Intake & Output 08/05/24 08/06/24 08/06/24 18:59 06:59 18:59 Other: Voiding Method Toilet # Voids 1 3 - Labs CBC & Chem 7: 08/06/24 06:57 08/06/24 06:53 Labs: Abnormal Lab Results - Last 24 Hours (Table) 08/05/24 08/05/24 08/05/24 Range/Units 12:03 17:18 20:14 WBC (4.50-10.00) 10*3/uL RBC (4.10-5.20) 10*6/uL Hgb (12.0-15.0) g/dL Hct (37.2-46.3) % MCV (80.0-97.0) fL MCH (27.0-32.0) pg MPV (9.5-12.2) fL D-Dimer 0.66 H (<0.60) mg/L FEU Chloride (98-107) mmol/L BUN (7-17) mg/dL Glucose (74-99) mg/dL POC Glucose (mg/dL) 179 H 117 H (70-110) mg/dL 08/06/24 08/06/24 08/06/24 Range/Units 06:09 06:53 06:57 WBC 4.23 L (4.50-10.00) 10*3/uL RBC 3.16 L (4.10-5.20) 10*6/uL Hgb 10.2 L (12.0-15.0) g/dL Hct 31.6 L (37.2-46.3) % MCV 100.0 H (80.0-97.0) fL MCH 32.3 H (27.0-32.0) pg MPV 9.2 L (9.5-12.2) fL D-Dimer (<0.60) mg/L FEU Chloride 108 H (98-107) mmol/L BUN 26 H (7-17) mg/dL Glucose 127 H (74-99) mg/dL POC Glucose (mg/dL) 117 H (70-110) mg/dL
[2024-08-06 12:26] LABS: Glucose,Whole Blood 115 mg/dL (70-110)
--- NOTE | 2024-08-06 17:29 | CT ---
EXAMINATION TYPE: CT angio chest DATE OF EXAM: 08/06/2024 5:21 PM COMPARISON: Prior CT study 05/02/2024. CLINICAL INDICATION: Female, 79 years old with history of pe; elevated dimer TECHNIQUE/CONTRAST: CTA scan of the thorax is performed with IV Contrast, patient injected with 80ml mL of Isovue 370, OR P images are created and reviewed these are created on a separate workstation.. CT DLP: 446.1 mGycm, Automated exposure control for dose reduction was used. FINDINGS: Pulmonary Artery: There is no evidence for a filling defect within the pulmonary vasculature to sugge st acute pulmonary embolism. The pulmonary artery is of normal size. Lungs/Pleura: No evidence of focal consolidation, pleural effusion or pneumothorax. Stable pleural-ba sed region of nodularity in the right lower lobe. No new suspicious or enlarging pulmonary nodule sheree ntified. Emphysema. Airway: Large airways are patent. Heart: Heart is within normal limits for size. Coronary artery calcifications. Vasculature: No evidence of aortic aneurysm. Mediastinum: No gross evidence of adenopathy. Musculoskeletal: No acute osseous abnormalities Soft Tissues/lymph nodes: Unremarkable. Lower neck: No significant findings. Upper Abdomen: No significant acute findings. Previous cholecystectomy. Left shoulder arthroplasty. S imple cyst in the right kidney. Post surgical changes at the GE junction, stable from prior study. IMPRESSION: No evidence of acute pulmonary embolism or acute pulmonary pathology. [facility], , 08/06/2024 5:26 PM
[2024-08-06 17:33] LABS: Glucose,Whole Blood 86 mg/dL (70-110)
[2024-08-06 20:02] LABS: Glucose,Whole Blood 162 mg/dL (70-110)
--- NOTE | 2024-08-07 01:49 | PN ---
PROGRESS NOTE DATE OF SERVICE: 08/06/2024 SUBJECTIVE: This is a 79-year-old gentlewoman, who was admitted with exertional unstable angina, also had some tachycardia on activity. Dr. Alexandra is recommending stress test on Thursday. No chest pain and no palpitation. EXAM: VITAL SIGNS: Pulse 78, blood pressure 113/70, and respirations 16. CHEST : No rhonchi, no crackles. ABDOMEN: Soft. NERVOUS SYSTEM: Nonfocal. LABORATORY DATA: D-dimer is 0.66. ASSESSMENT: 1. Chest pain, possible unstable angina. Myocardial infarction ruled out. 2. Tachycardia, exertional. 3. Elevated D-dimer. 4. Elevated creatinine up to 1.10. 5. History of coronary artery disease. 6. History of supraventricular tachycardia and ablation. 7. Diabetes mellitus type 2. 8. Hypertension. 9. Hyperlipidemia. 10.Multiple complex medical issues. RECOMMENDATIONS: Recommend to continue current management and treatment. Otherwise, at this time, I recommend CT angio of the chest to complete the workup. TSH is normal. Closely followed by Cardiology. Possible stress test on Thursday. Further recommendations to follow. MMODL / IJN: [id number] /
[2024-08-07 06:12] LABS: Glucose,Whole Blood 104 mg/dL (70-110)
[2024-08-07 07:15] LABS: Basophils # (A) 0.01 10*3/uL (0.00-0.10); Basophils % (A) 0.2 %; Eosinophils # (A) 0.33 10*3/uL (0.04-0.35); Eosinophils % (A) 6.8 %; HCT 31.7 % (37.2-46.3); HGB 9.8 g/dL (12.0-15.0); Lymphocytes # (A) 1.98 10*3/uL (0.90-5.00); Lymphocytes % (A) 40.6 %; MCH 30.8 pg (27.0-32.0); MCHC 30.9 g/dL (32.0-37.0); MCV 99.7 fL (80.0-97.0); Monocytes # (A) 0.46 10*3/uL (0.20-1.00); Monocytes % (A) 9.4 %; Neutrophils # (A) 2.09 10*3/uL (1.80-7.70); Neutrophils % (A) 42.8 %; Platelet Count 198 10*3/uL (140-440); RBC 3.18 10*6/uL (4.10-5.20); RDW 14.2 % (11.5-14.5); WBC 4.88 10*3/uL (4.50-10.00)
[2024-08-07 07:29] LABS: ALT 14 U/L (4-34); AST 19 U/L (14-36); African American GFR (CKD) 58 (>60 ml/min/1.73 sqM); Albumin 3.3 g/dL (3.5-5.0); Albumin/Globulin Ratio 1.3; Alkaline Phosphatase 96 U/L (38-126); Anion Gap 7 mmol/L; Blood Urea Nitrogen 21 mg/dL (7-17); Calcium 9.6 mg/dL (8.4-10.2); Carbon Dioxide 24 mmol/L (22-30); Chloride 107 mmol/L (98-107); Globulin 2.6 g/dL; Glucose 116 mg/dL (74-99); Non-African American GFR(CKD) 50 (>60 ml/min/1.73 sqM); Potassium 4.1 mmol/L (3.5-5.1); Sodium 138 mmol/L (137-145); Total Protein 5.9 g/dL (6.3-8.2)
--- NOTE | 2024-08-07 10:54 | P.PN ---
Subjective Progress Note Date: 08/07/24 This is a 79-year-old female patient who was admitted to the hospital with chest discomfort and ruled out for acute coronary syndrome and she is scheduled to undergo a stress test this coming Thursday. Also she has history of atrial tachycardia status post ablation before. She was seen and evaluated this morning which she is asymptomatic at this point. The physical examination is remarkable for regular rhythm with a systolic murmur at the right upper sternal border with clear breathing sounds bilaterally and no edema was noted August 07, 2024 The patient was seen and evaluated this morning. She did walk earlier today and she did have some discomfort in the chest with shortness of breath. Currently she is asymptomatic. The physical examination is remarkable for regular rhythm with a systolic murmur and decrease in the intensity of S2 and clear breathing sounds bilaterally and no edema was noted in the lower extremities Assessment Atypical chest discomfort History of atrial tachycardia status post ablation Multiple comorbid conditions Plan Continue the current medical regimen Proceed with stress test on Thursday Objective - Vital Signs Vital signs: Vital Signs Temp 98.2 F 08/07/24 07:00 Pulse 73 08/07/24 07:00 Resp 17 08/07/24 07:00 BP 119/75 08/07/24 07:00 Pulse Ox 97 08/07/24 07:00 FiO2 Intake & Output 08/06/24 08/07/24 08/07/24 18:59 06:59 18:59 Intake Total 222 Balance 222 Intake: Oral 222 Other: Voiding Method Toilet # Voids 3 1 - Labs CBC & Chem 7: 08/07/24 06:53 08/07/24 06:53 Labs: Abnormal Lab Results - Last 24 Hours (Table) 08/06/24 08/06/24 08/06/24 Range/Units 06:57 12:24 20:00 RBC (4.10-5.20) 10*6/uL Hgb (12.0-15.0) g/dL Hct (37.2-46.3) % MCV (80.0-97.0) fL MCHC (32.0-37.0) g/dL MPV (9.5-12.2) fL BUN (7-17) mg/dL Creatinine (0.52-1.04) mg/dL Glucose (74-99) mg/dL POC Glucose (mg/dL) 115 H 162 H (70-110) mg/dL Hemoglobin A1c 6.5 H (<=6.0) % Total Protein (6.3-8.2) g/dL Albumin (3.5-5.0) g/dL 08/07/24 08/07/24 Range/Units 06:53 06:53 RBC 3.18 L (4.10-5.20) 10*6/uL Hgb 9.8 L (12.0-15.0) g/dL Hct 31.7 L (37.2-46.3) % MCV 99.7 H (80.0-97.0) fL MCHC 30.9 L (32.0-37.0) g/dL MPV 9.0 L (9.5-12.2) fL BUN 21 H (7-17) mg/dL Creatinine 1.07 H (0.52-1.04) mg/dL Glucose 116 H (74-99) mg/dL POC Glucose (mg/dL) (70-110) mg/dL Hemoglobin A1c (<=6.0) % Total Protein 5.9 L (6.3-8.2) g/dL Albumin 3.3 L (3.5-5.0) g/dL
[2024-08-07 12:17] LABS: Glucose,Whole Blood 129 mg/dL (70-110)
[2024-08-07] MEDS: MECLIZINE 12.5 MG TAB PO SCH (17:01)
[2024-08-07 17:22] LABS: Glucose,Whole Blood 103 mg/dL (70-110)
[2024-08-07 21:26] LABS: Glucose,Whole Blood 158 mg/dL (70-110)
--- NOTE | 2024-08-08 03:30 | PN ---
PROGRESS NOTE DATE OF SERVICE: 08/07/2024 SUBJECTIVE: This 79-year-old woman who was admitted with chest pain, also had exertional tachycardia. The patient is slated to have a stress test tomorrow. The patient also has some dizziness. CT angio showed no evidence of pulmonary embolism. OBJECTIVE: VITAL SIGNS: Pulse is 72, blood pressure 120/80, respirations 16. CHEST: Clear to auscultation. CARDIOVASCULAR: S1, S2. ABDOMEN: Soft, nondistended. LABORATORY DATA: Hemoglobin 9.8. ASSESSMENT: 1. Chest pain, possible unstable angina. Myocardial infarction ruled out. Stress test tomorrow. 2. Tachycardia, exertional. 3. Elevated D-dimer. 4. Elevated creatinine up to 1.17. 5. Coronary artery disease. 6. History of supraventricular tachycardia and ablation. 7. Diabetes mellitus. 8. Multiple complex medical issues. RECOMMENDATIONS: Recommend to continue current management and treatment. Otherwise, recommend Antivert. Continue rest of the medications. Stress test tomorrow. Prognosis is guarded. Further recommendations to follow. MMODL / IJN: [id number] /
[2024-08-08 06:13] LABS: Glucose,Whole Blood 119 mg/dL (70-110)
[2024-08-08 08:17] LABS: Blood Urea Nitrogen 20.9 mg/dL (9.0-27.0); Calcium 9.3 mg/dL (8.7-10.3); Carbon Dioxide 24.5 mmol/L (21.6-31.8); Chloride 108 mmol/L (96-109); Glucose 125 mg/dL (70-110); Potassium 4.5 mmol/L (3.5-5.5); Sodium 142 mmol/L (135-145)
[2024-08-08 09:45] LABS: Basophils # (A) 0.02 X 10*3/uL (0.00-0.10); Basophils % (A) 0.4 %; Eosinophils # (A) 0.35 X 10*3/uL (0.04-0.35); Eosinophils % (A) 7.2 %; HCT 32.4 % (37.2-46.3); HGB 10.1 g/dL (12.0-15.0); Lymphocytes # (A) 1.98 X 10*3/uL (0.90-5.00); Lymphocytes % (A) 40.9 %; MCH 31.2 pg (27.0-32.0); MCHC 31.2 g/dL (32.0-37.0); Mean Platelet Volume 9.7 FL (9.5-12.2); Monocytes # (A) 0.49 X 10*3/uL (0.20-1.00); Monocytes % (A) 10.1 %; NRBC Per 100 WBC 0 X 10*3/uL (0.00-0.01); Neutrophils # (A) 1.99 X 10*3/uL (1.80-7.70); Neutrophils % (A) 41.2 %; Platelet Count 218 X 10*3/uL (140-440); RBC 3.24 X 10*6/uL (4.10-5.20); WBC 4.84 X 10*3/uL (4.50-10.00)
--- NOTE | 2024-08-08 11:27 | P.PN ---
Subjective HISTORY OF PRESENT ILLNESS: This is a 79-year-old female patient who was admitted to the hospital with chest discomfort and ruled out for acute coronary syndrome and she is scheduled to undergo a stress test this coming Thursday. Also she has history of atrial tachycardia status post ablation before. She was seen and evaluated this morning which she is asymptomatic at this point. The physical examination is remarkable for regular rhythm with a systolic murmur at the right upper sternal border with clear breathing sounds bilaterally and no edema was noted August 07, 2024 The patient was seen and evaluated this morning. She did walk earlier today and she did have some discomfort in the chest with shortness of breath. Currently she is asymptomatic. The physical examination is remarkable for regular rhythm with a systolic murmur and decrease in the intensity of S2 and clear breathing sounds bilaterally and no edema was noted in the lower extremities 08/08/2024 Patient examined this morning. She is sitting up in the chair. She denies any complaints of chest pain or pressure. Denies shortness of breath. Vital signs are stable. PHYSICAL EXAM: VITAL SIGNS: Reviewed. GENERAL: Well-developed in no acute distress. NECK: Supple. No JVD or thyromegaly LUNGS: Respirations even and unlabored. Lungs essentially clear to auscultation bilaterally. HEART: Regular rate and rhythm. S1 and S2 heard. Systolic murmur noted. EXTREMITIES: Normal range of motion. No clubbing or cyanosis. Peripheral pulses intact. No lower extremity edema ASSESSMENT: Chest pain, atypical, ACS ruled out History of SVT status post ablation, 07/26/2024 Hypertension Hyperlipidemia Obesity Moderate aortic stenosis PLAN: Continue current cardiac medications including Eliquis, aspirin, atorvastatin, losartan, and metoprolol Interrogate loop recorder (mPorttronic) Patient scheduled for Lexiscan stress test this morning If negative, patient may be discharged home from a cardiac standpoint Nurse practitioner note has been reviewed by physician. Signing provider agrees with the documented findings, assessment, and plan of care documented by FOLLOW UP REP as a scribe. Objective - Vital Signs Vital signs: Vital Signs Temp 98.0 F 08/08/24 08:13 Pulse 91 08/08/24 08:13 Resp 18 08/08/24 08:13 BP 108/72 08/08/24 08:13 Pulse Ox 94 L 08/08/24 08:58 FiO2 Intake & Output 08/07/24 08/08/2425 18:59 06:59 18:59 Intake Total 740 Balance 740 Intake: Oral 740 Other: Voiding Method Toilet # Voids 2 - Labs CBC & Chem 7: 08/08/24 05:31 08/08/24 05:31 Labs: Abnormal Lab Results - Last 24 Hours (Table) 08/07/24 08/07/24 08/08/24 Range/Units 12:16 21:23 05:31 RBC 3.24 L (4.10-5.20) X 10*6/uL Hgb 10.1 L (12.0-15.0) g/dL Hct 32.4 L (37.2-46.3) % MCV 100.0 H (80.0-97.0) FL MCHC 31.2 L (32.0-37.0) g/dL Est GFR (CKD-EPI) (>=60) Glucose (70-110) mg/dL POC Glucose (mg/dL) 129 H 158 H (70-110) mg/dL 08/08/24 08/08/24 Range/Units 05:31 06:12 RBC (4.10-5.20) X 10*6/uL Hgb (12.0-15.0) g/dL Hct (37.2-46.3) % MCV (80.0-97.0) FL MCHC (32.0-37.0) g/dL Est GFR (CKD-EPI) 51 L (>=60) Glucose 125 H (70-110) mg/dL POC Glucose (mg/dL) 119 H (70-110) mg/dL
[2024-08-08] MEDS ORDERED: REGADENOSON 0.4 MG/5 ML SYRINGE IV ONE (11:30)
[2024-08-08 12:54] LABS: Glucose,Whole Blood 109 mg/dL (70-110)
--- NOTE | 2024-08-08 13:01 | NM ---
EXAMINATION TYPE: NM stress lexiscan cardiolite DATE OF EXAM: 08/08/2024 COMPARISON: NONE CLINICAL INDICATION: Female, 79 years old with history of chest pain, tachycardia; TECHNIQUE: After the intravenous administration of 10.15 mCi Tc 99m Sestamibi - Cardiolite resting S PECT images acquired 160 minutes post injection. The patient received 0.4mg Lexiscan, 25.3 mCi Tc 99m Sestamibi - Stress images obtained [address] injection FINDINGS: Review of stress and rest SPECT images demonstrates no distinct perfusion abnormality. Gated analysi s shows normal wall motion with an estimated left ventricular ejection fraction of 71 %. However, TI D is borderline increased at 1.20. IMPRESSION: 1. The transient ischemic dilatation ratio is borderline increased at 1.20. This can be seen in the s etting of multivessel, global inducible ischemia. Further clinical and EKG correlation recommended. 2. No focal reversibility is seen. [facility], , 08/08/2024 12:59 PM
[2024-08-08 14:40] VITALS: BP 113/75; PULSE 82; RESP 17; TEMP 97.6
--- NOTE | 2024-08-08 17:37 | CA ---
Lexiscan Nuclear Stress Test Report Name: Minerva Stone Exam Date: 08/08/2024 11:22 Exam Location: [place] Stress Ht (in): 63 Wt (lb): 180 BSA: 1.85 Ordering Phys: Geno Batista MD Referring Phys: NIKITA Technologist: SIGIFREDO MARI Age: 79 Gender: F : 1945 Procedure CPT: Indications: Reflex order-Stress test ICD-10 Codes: Patient History: Medications: SEE CHART,,, Meds past 24 hrs: Pretest Chest Pain: STRESS TEST Lexiscan Protocol Exercise Duration (min:sec): 02:[address] Depressions (mm): Angina Score: Toribio Score: Resting HR (bpm): 74 Peak HR (bpm): 105 Resting BP (mmHg): 124 / 70 Peak BP (mmHg): 126 / 71 MPHR: 142 Target HR: 121 % MPHR: 74 METS: 1.0 Total Dose: Peak Dose: Atropine: Double Product: 25477 BP Response: Stress Termination: INFUSION COMPLETE Stress Symptoms: NO SYMPTOMS Stress Summary: ECG ANALYSIS Resting ECG: Stress ECG: CONCLUSIONS Diagnosis chest discomfort No ECG abnormalities during Lexiscan infusion Dr. Frank Navarrete MD (Electronically Signed) Final Date: 08 Aug 2024 17:36
--- NOTE | 2024-08-12 01:01 | P.DS ---
Providers Date of admission: 08/04/24 13:11 Expected date of discharge: 08/08/24 Attending physician: Misael Brown Consults: 08/04/24 13:08 Consult Physician Routine Consulting Provider: [facility] Consult Reason/Comments: chest pain Do you want consulting provider notified?: Yes Primary care physician: Evette Landis [facility] Course: Final diagnosis Chest pain, likely unstable angina, myocardial infarction ruled out Tachycardia, exertional Elevated D-dimer, ruled out PE on CT imaging Elevated creatinine up to 1.17 History of coronary artery disease History of SVT and ablation Diabetes mellitus Obesity with a BMI 31.9 GI prophylaxis DVT Discharge disposition Patient is being discharged in a stable condition with guarded prognosis to home. Patient will follow-up with Dr. Landis in the outpatient setting upon discharge. Patient is to continue with current medications and close outpatient follow-up with cardiology as scheduled. Total time taken is greater than 35 minutes. Hospital course This is a 79-year-old female who was recently admitted with chest pain, unstable angina being closely monitored with cardiology following. Patient also noted to have exertional tachycardia and underwent repeat stress test which revealed a transient ischemic dilatation ratio that is borderline increased at 1.2 and can be seen in the setting of a multivessel, global inducible ischemia with no focal reversible seen. Imaging Lexiscan was reviewed per cardiology and has been cleared for discharge home. Patient reports to feeling improved and would like to go home. Patient will need close outpatient follow-up with cardiology as well as primary care provider on discharge. Currently no reports of chest pain, shortness of breath, or palpitations. Patient is afebrile. No reports of nausea or vomiting and patient is tolerating diet. Patient will be going home today. Guarded prognosis and high risk for readmissions given significant comorbidities Physical exam: Gen: This is a 79-year-old female who is awake, alert and oriented x 3, well- developed, elderly appearing, obese HEENT: Head is atraumatic, normocephalic. Pupils equal, round. Sclerae is anicteric. NECK: Supple. No JVD. No lymphadenopathy. No thyromegaly. LUNGS: Diminished breath sounds bilaterally otherwise clear to auscultation. No wheezes or rhonchi. No intercostal retractions. HEART: S1, S2 are muffled ABDOMEN: Soft. Obese bowel sounds are present. No masses. No tenderness. EXTREMITIES: No pedal edema. No calf tenderness. NEUROLOGICAL: Patient is awake, alert and oriented x3. Cranial nerves 2 through 12 are grossly intact. Please refer to medication reconciliation sheet for a list of medications. The impression and plan of care has been dictated by Sofya Sherman, Nurse Practitioner as directed. Dr. Kevin MD I have performed a history and examination and MDM of this patient, discussed the same with the dictator, and agree with the dictator's assessment and plan as written ,documented as a scribe. Based on total visit time, I have performed more than 50% of the visit. Patient Condition at Discharge: Fair Plan - Discharge Summary New Discharge Prescriptions: New Metoprolol Tartrate [Lopressor] 25 mg PO DAILY #30 tab Meclizine [Antivert] 12.5 mg PO TID #90 tab Continue rOPINIRole HCL [Requip] 3 mg PO HS Aspirin 81 mg PO DAILY Atorvastatin [Lipitor] 10 mg PO DAILY Pantoprazole Sodium [Protonix] 40 mg PO HS Vibegron [Gemtesa] 75 mg PO DAILY Apixaban [Eliquis] 5 mg PO BID@ Furosemide [Lasix] 20 mg PO DAILY PRN PRN Reason: Edema Tamsulosin HCl [Flomax] 0.4 mg PO HS Zinc Gluconate [Zinc] 50 mg PO DAILY Losartan Potassium [Cozaar] 50 mg PO DAILY Discharge Medication List Aspirin 81 mg PO DAILY 02/26/15 [History] rOPINIRole HCL [Requip] 3 mg PO HS 02/26/15 [History] Atorvastatin [Lipitor] 10 mg PO DAILY 06/10/21 [History] Pantoprazole Sodium [Protonix] 40 mg PO HS 08/23/21 [History] Vibegron [Gemtesa] 75 mg PO DAILY 04/30/24 [History] Furosemide [Lasix] 20 mg PO DAILY PRN 07/22/24 [History] Apixaban [Eliquis] 5 mg PO BID@07/26/24 [History] Tamsulosin HCl [Flomax] 0.4 mg PO HS 07/26/24 [History] Losartan Potassium [Cozaar] 50 mg PO DAILY 08/04/24 [History] Zinc Gluconate [Zinc] 50 mg PO DAILY 08/04/24 [History] Meclizine [Antivert] 12.5 mg PO TID #90 tab 08/08/24 [Rx] Metoprolol Tartrate [Lopressor] 25 mg PO DAILY #30 tab 08/08/24 [Rx] Follow up Appointment(s)/Referral(s): Frank Navarrete MD [STAFF PHYSICIAN] - 1 Week Evette Landis DO [Primary Care Provider] - 1-2 days Ambulatory/Diagnostic Orders: Complete Blood Count w/diff [LAB.AMB] Location: None Selected Activity/Diet/Wound Care/Special Instructions: Activity limited until follow-up Follow-up with primary care provider Continue taking medications as prescribed Follow-up with cardiology outpatient Discharge Disposition: HOME SELF-CARE
== END 2024-08-08 16:20 | disposition home or self-care (01) ==
LOC: EC 11:15 → 6NMEDSUR 13:11
PROVIDERS: ADMIT Hospitalist; ATTEND Hospitalist
DX: R07.89 Other chest pain (principal); I47.10 Supraventricular tachycardia, unspecified; E11.9 Type 2 diabetes mellitus without complications; I11.0 Hypertensive heart disease with heart failure; I50.9 Heart failure, unspecified; E78.00 Pure hypercholesterolemia, unspecified; K21.9 Gastro-esophageal reflux disease without esophagitis; I25.10 Atherosclerotic heart disease of native coronary artery without angina pectoris; I48.91 Unspecified atrial fibrillation; I35.0 Nonrheumatic aortic (valve) stenosis; E66.9 Obesity, unspecified; Z68.31 Body mass index [BMI] 31.0-31.9, adult; Z85.3 Personal history of malignant neoplasm of breast; Z79.01 Long term (current) use of anticoagulants; Z79.82 Long term (current) use of aspirin; Z79.899 Other long term (current) drug therapy; Z88.5 Allergy status to narcotic agent
CPT/HCPCS: 96365; 96366; 99285; 36415; 94760 ×2; 93005; 93017; 93306; 85379; 84439; 83880; 80053 ×3; 80048 ×2; 84443; 83735; 84484; 85025 ×5; 85610; 85730; 83036; 71046; 71275; 78452; G0378 ×5; A9500; J3475; J2785; Q9967

== ENCOUNTER → 2024-08-11 | Outpatient (CLI) | payer MEDICARE ==
[2024-08-11 15:34] LABS: Basophils # (A) 0.03 X 10*3/uL (0.00-0.10); Basophils % (A) 0.5 %; Eosinophils # (A) 0.31 X 10*3/uL (0.04-0.35); Eosinophils % (A) 5.6 %; HCT 33.7 % (37.2-46.3); HGB 10.3 g/dL (12.0-15.0); Lymphocytes # (A) 2.05 X 10*3/uL (0.90-5.00); Lymphocytes % (A) 37.1 %; MCH 31.3 pg (27.0-32.0); MCHC 30.6 g/dL (32.0-37.0); MCV 102.4 FL (80.0-97.0); Mean Platelet Volume 9.9 FL (9.5-12.2); Monocytes # (A) 0.43 X 10*3/uL (0.20-1.00); Monocytes % (A) 7.8 %; NRBC Per 100 WBC 0 X 10*3/uL (0.00-0.01); Neutrophils % (A) 48.8 %; Platelet Count 226 X 10*3/uL (140-440); RBC 3.29 X 10*6/uL (4.10-5.20); RDW 14.5 % (11.5-14.5); WBC 5.53 X 10*3/uL (4.50-10.00)
[2024-08-11 20:36] LABS: BUN/Creat Ratio 23.75 Ratio (12.00-20.00); Blood Urea Nitrogen 28.5 mg/dL (9.0-27.0); Calcium 9.5 mg/dL (8.7-10.3); Carbon Dioxide 20.6 mmol/L (21.6-31.8); Chloride 106 mmol/L (96-109); Glucose 167 mg/dL (70-110); Potassium 4.3 mmol/L (3.5-5.5); Sodium 139 mmol/L (135-145)
== END | disposition home or self-care (01) ==
LOC: LABWHC1 11:13
PROVIDERS: ATTEND Family Medicine
DX: R07.9 Chest pain, unspecified (principal)
CPT/HCPCS: 36415; 80048; 85025

== ENCOUNTER 2024-09-17 23:23 | Emergency (ER) | payer MEDICARE ==
--- NOTE | 2024-09-18 00:18 | ED ---
URI HPI - General Chief Complaint: Upper Respiratory Infection Stated Complaint: difficulty breathing, COVID+ Time Seen by Provider: 09/17/24 23:38 Source: patient Mode of arrival: ambulatory Limitations: no limitations - History of Present Illness MD Complaint: cough Onset/Timin -: days(s) Quality: sharp Consistency: intermittent Worsens With: deep breaths Associated Symptoms: fever, chills Treatments Prior to Arrival: antibiotics - Related Data Home Medications Medication Instructions Recorded Confirmed Aspirin 81 mg PO DAILY 02/26/15 08/04/24 rOPINIRole HCL [Requip] 3 mg PO HS 02/26/15 08/04/24 Atorvastatin [Lipitor] 10 mg PO DAILY 06/10/21 08/04/24 Pantoprazole Sodium [Protonix] 40 mg PO HS 08/23/21 08/04/24 Vibegron [Gemtesa] 75 mg PO DAILY 04/30/24 08/04/24 Furosemide [Lasix] 20 mg PO DAILY PRN 07/22/24 08/04/24 Apixaban [Eliquis] 5 mg PO BID@0830,199907/26/24 08/04/24 Tamsulosin HCl [Flomax] 0.4 mg PO HS 07/26/24 08/04/24 Losartan Potassium [Cozaar] 50 mg PO DAILY 08/04/24 08/04/24 Zinc Gluconate [Zinc] 50 mg PO DAILY 08/04/24 08/04/24 Previous Rx's Medication Instructions Recorded Meclizine [Antivert] 12.5 mg PO TID #90 tab 08/08/24 Metoprolol Tartrate [Lopressor] 25 mg PO DAILY #30 tab 08/08/24 predniSONE 50 mg PO DAILY #5 tab 09/18/24 Allergies Allergy/AdvReac Type Severity Reaction Status Date / Time hydrocodone bitartrate AdvReac Nausea & Verified 09/17/24 23:28 [From Lortab] Vomiting Review of Systems ROS Statement: Those systems with pertinent positive or pertinent negative responses have been documented in the HPI. ROS Other: All systems not noted in ROS Statement are negative. Past Medical History Past Medical History: Blood Disorder, Coronary Artery Disease (CAD), Cancer, Diabetes Mellitus, GERD/Reflux, GI Bleed, Hyperlipidemia, Hypertension, Supraventricular Tachycardia (SVT) Additional Past Medical History / Comment(s): breast cancer with chemo and bilateral mastectomy 2002. ANEMIA NEEDING BLOOD TRANSFUSION. History of Any Multi-Drug Resistant Organisms: None Reported Past Surgical History: Breast Surgery, Cholecystectomy, Heart Catheterization, Hernia Repair, Joint Replacement, Orthopedic Surgery Additional Past Surgical History / Comment(s): Bilateral knee replacements, cyst removal, Denis surgery, tubal and ovary removed, bilateral mastectomy, D&C with cyro for pre cancerous cells, varicose vein procedure, Loop recorder, left shoulder replacement and revision. Past Anesthesia/Blood Transfusion Reactions: Postoperative Nausea & Vomiting (PONV) Additional Past Anesthesia/Blood Transfusion Reaction / Comment(s): Has had blood transfusion with no reaction, slow to wake up and PONV. Past Psychological History: No Psychological Hx Reported Smoking Status: Never smoker Past Alcohol Use History: None Reported Past Drug Use History: None Reported - Past Family History Sister(s) Family Medical History: Deep Vein Thrombosis (DVT) Mother Additional Family Medical History / Comment(s): Heart problems. General Exam Limitations: no limitations Course Vital Signs 09/17/24 09/18/24 23:26 01:03 Temperature 99.1 F 99.0 F Pulse Rate 87 73 Respiratory 18 18 Rate Blood Pressure 150/76 157/83 O2 Sat by Pulse 95 95 Oximetry Medical Decision Making - Medical Decision Making Was pt. sent in by a medical professional or institution (DAVID Shepard, SPORTS DOCTOR, urgent care, hospital, or [facility]...) When possible be specific @ -[No] Did you speak to anyone other than the patient for history (EMS, parent, family, police, friend...)? What history was obtained from this source @ -[No] Did you review nursing and triage notes (agree or disagree)? Why? @ -[I reviewed and agree with nursing and triage notes] Were old charts reviewed (outside hosp., previous admission, EMS record, old EKG, old radiological studies, urgent care reports/EKG's, [facility] records)? Report findings @ -[No old charts were reviewed] Differential Diagnosis (chest pain, altered mental status, abdominal pain women, abdominal pain men, vaginal bleeding, weakness, fever, dyspnea, syncope, headache, dizziness, GI bleed, back pain, seizure, CVA, palpatations, mental health, musculoskeletal)? @ -Differential Fever: Pneumonia, viral URI, endocarditis, myocarditis, pericarditis, otitis, sinusitis, peritonsillar Abscess, retropharyngeal Abscess, epiglottitis, peritonitis, appendicitis, Rimma cystitis, diverticulitis, hepatitis, colitis, UTI, PID, TOA, pyelonephritis, prostatitis, epididymitis, meningitis, encephalitis, pulmonary embolism, CVA, thyroid storm, pancreatitis, adrenal crisis, cavernous sinus thrombosis, this is not meant to be an all-inclusive list. EKG interpreted by me (3pts min.). @ -Not done X-rays interpreted by me (1pt min.). @ -[None done] CT interpreted by me (1pt min.). @ -[None done] U/S interpreted by me (1pt. min.). @ -[None done] What testing was considered but not performed or refused? (CT, X-rays, U/S, labs)? Why? @ -[None] What meds were considered but not given or refused? Why? @ -[None] Did you discuss the management of the patient with other professionals (pr ofessionals i.e. , PA, SPORTS DOCTOR, lab, RT, psych nurse, director social welfare, outbound telemarketing representative, teacher, community chest officer, senior case manager)? Give summary @ -[No] Was smoking cessation discussed for >3mins.? @ -[No] Was critical care preformed (if so, how long)? @ -[No] Were there social determinants of health that impacted care today? How? (Homelessness, low income, unemployed, alcoholism, drug addiction, transportation, low edu. Level, literacy, decrease access to med. care, skilled nursing, rehab)? @ -[No] Was there de-escalation of care discussed even if they declined (Discuss DNR or withdrawal of care, Hospice)? DNR status @ -[No] What co-morbidities impacted this encounter? (DM, HTN, Smoking, COPD, CAD, Cancer, CVA, ARF, Chemo, Hep., AIDS, mental health diagnosis, sleep apnea, morbid obesity)? @ -[None] Was patient admitted / discharged? Hospital course, mention meds given and route, prescriptions, significant lab abnormalities, going to OR and other pertinent info. @ -[hospital course] Undiagnosed new problem with uncertain prognosis? @ -[No] Drug Therapy requiring intensive monitoring for toxicity (Heparin, Nitro, Insulin, Cardizem)? @ -[No] Were any procedures done? @ -[No] Diagnosis/symptom? @ -COVID-19 Acute, or Chronic, or Acute on Chronic? @ -Acute Uncomplicated (without systemic symptoms) or Complicated (systemic symptoms)? @ -Complicated Side effects of treatment? @ -[No] Exacerbation, Progression, or Severe Exacerbation? @ -[No] Poses a threat to life or bodily function? How? (Chest pain, [place], [place], pneumonia, PE, COPD, DKA, ARF, appy, cholecystitis, CVA, Diverticulitis, Homicidal, Suicidal, threat to staff... and all critical care pts) @ -[No] - Lab Data Lab Results 09/17/24 Range/Units 23:37 Influenza Type A (PCR) Not Detected (Not Detectd) Influenza Type B (PCR) Not Detected (Not Detectd) RSV (PCR) Not Detected (Not Detectd) SARS-CoV-2 (PCR) Detected A (Not Detectd) Disposition Clinical Impression: COVID-19 Disposition: HOME SELF-CARE Condition: Fair Instructions (If sedation given, give patient instructions): COVID-19 (Coronavirus Disease 2019) (ED) Additional Instructions: Alternate Tylenol/Motrin every 4 hours for fever/pain. Follow-up with primary care physician for any ongoing symptoms return to ER if experiencing worsening fever, chills, cough, blood in sputum, difficulty breathing, chest pain. Prescriptions: predniSONE 50 mg PO DAILY #5 tab Is patient prescribed a controlled substance at d/c from ED?: No Referrals: Evtete Landis DO [Primary Care Provider] - 1-2 days Time of Disposition: 01:39
--- NOTE | 2024-09-18 00:23 | XR ---
EXAMINATION TYPE: XR chest 2V DATE OF EXAM: 09/17/2024 11:53 PM COMPARISON: Chest radiographs from 08/04/2024, CTA chest 08/06/2024 TECHNIQUE: XR chest 2V Frontal and lateral views of the chest. CLINICAL INDICATION:Female, 79 years old with history of Dyspnea; FINDINGS: Lungs/Pleura: There is no evidence of pleural effusion, focal consolidation, or pneumothorax. Pulmonary vascularity: Unremarkable. Heart/mediastinum: Cardiomediastinal silhouette is unremarkable. Atherosclerotic calcifications are seen in the aorta. Musculoskeletal: No acute osseous pathology. Left shoulder arthroplasty change. Other findings: Anterior left chest wall loop recorder. Surgical clips in the right upper quadrant. IMPRESSION: No acute cardiopulmonary disease/process. [facility], , 09/18/2024 12:21 AM
[2024-09-18 00:34] LABS: Influenza A Not Detected (Not Detectd); Influenza B Not Detected (Not Detectd); RSV Not Detected (Not Detectd)
[2024-09-18] MEDS: DEXAMETHASONE SOD PHOSPHATE 4 MG/ML 1 ML VIAL IM STA (01:02)
[2024-09-18 02:11] VITALS: BP 155/52; PULSE 68; RESP 16; TEMP 98.4
== END 2024-09-18 01:57 | disposition home or self-care (01) ==
LOC: EC 23:23
DX: U07.1 COVID-19 (principal); Z88.5 Allergy status to narcotic agent
CPT/HCPCS: 71046; 87636; 96372; 99285

== ENCOUNTER 2024-10-13 03:42 | Emergency (ER) | payer MEDICARE ==
--- NOTE | 2024-10-13 04:10 | ED ---
Arrhythmia/Palpitations HPI - General Chief Complaint: Arrhythmia/Palpitations Stated Complaint: Rapid heartbeat Time Seen by Provider: 10/13/24 04:01 Source: patient Mode of arrival: ambulatory Limitations: no limitations - History of Present Illness Initial Comments: This patient is a 79-year-old woman who arrives with complaint that it feels like her heart is beating rapidly. The patient states that the symptoms came on approximately 1 to 2 hours ago. She was at rest at the time. She states she had history of previous A-fib with ablation. She states she also had been getting over coronavirus infection. She is denying chest pain. No diaphoresis or nausea or vomiting. Mild dyspnea. MD Complaint: rapid heart beat -: hour(s) Time: 01:00 Context: occurred during rest Arrhythmia History: history of ablation Associated Symptoms: shortness of breath - Related Data Home Medications Medication Instructions Recorded Confirmed Aspirin 81 mg PO DAILY 02/26/15 08/04/24 rOPINIRole HCL [Requip] 3 mg PO HS 02/26/15 08/04/24 Atorvastatin [Lipitor] 10 mg PO DAILY 06/10/21 08/04/24 Pantoprazole Sodium [Protonix] 40 mg PO HS 08/23/21 08/04/24 Vibegron [Gemtesa] 75 mg PO DAILY 04/30/24 08/04/24 Furosemide [Lasix] 20 mg PO DAILY PRN 07/22/24 08/04/24 Apixaban [Eliquis] 5 mg PO BID@0830,2000 07/26/24 08/04/24 Tamsulosin HCl [Flomax] 0.4 mg PO HS 07/26/24 08/04/24 Losartan Potassium [Cozaar] 50 mg PO DAILY 08/04/24 08/04/24 Zinc Gluconate [Zinc] 50 mg PO DAILY 08/04/24 08/04/24 Previous Rx's Medication Instructions Recorded Meclizine [Antivert] 12.5 mg PO TID #90 tab 08/08/24 Metoprolol Tartrate [Lopressor] 25 mg PO DAILY #30 tab 08/08/24 predniSONE 50 mg PO DAILY #5 tab 09/18/24 Allergies Allergy/AdvReac Type Severity Reaction Status Date / Time hydrocodone bitartrate AdvReac Nausea & Verified 10/13/24 03:48 [From Lortab] Vomiting Review of Systems ROS Statement: Those systems with pertinent positive or pertinent negative responses have been documented in the HPI. ROS Other: All systems not noted in ROS Statement are negative. Constitutional: Denies: fever, chills, weakness Eyes: Denies: vision change Respiratory: Reports: dyspnea. Denies: cough, hemoptysis Cardiovascular: Reports: palpitations. Denies: chest pain, dyspnea on exertion, edema, syncope Gastrointestinal: Denies: abdominal pain, nausea, vomiting Genitourinary: Denies: dysuria, hematuria Musculoskeletal: Denies: back pain Skin: Denies: rash Neurological: Denies: headache, weakness, numbness Psychiatric: Reports: anxiety Past Medical History Past Medical History: Blood Disorder, Coronary Artery Disease (CAD), Cancer, Diabetes Mellitus, GERD/Reflux, GI Bleed, Hyperlipidemia, Hypertension, Supraventricular Tachycardia (SVT) Additional Past Medical History / Comment(s): breast cancer with chemo and bilateral mastectomy 2002. ANEMIA NEEDING BLOOD TRANSFUSION. History of Any Multi-Drug Resistant Organisms: None Reported Past Surgical History: Breast Surgery, Cholecystectomy, Heart Catheterization, Hernia Repair, Joint Replacement, Orthopedic Surgery Additional Past Surgical History / Comment(s): Bilateral knee replacements, cyst removal, Denis surgery, tubal and ovary removed, bilateral mastectomy, D&C with cyro for pre cancerous cells, varicose vein procedure, Loop recorder, left shoulder replacement and revision. Past Anesthesia/Blood Transfusion Reactions: Postoperative Nausea & Vomiting (PONV) Additional Past Anesthesia/Blood Transfusion Reaction / Comment(s): Has had blood transfusion with no reaction, slow to wake up and PONV. Past Psychological History: No Psychological Hx Reported Smoking Status: Never smoker Past Alcohol Use History: None Reported Past Drug Use History: None Reported - Past Family History Sister(s) Family Medical History: Deep Vein Thrombosis (DVT) Mother Additional Family Medical History / Comment(s): Heart problems. General Exam Limitations: no limitations General appearance: alert, in no apparent distress Head exam: Present: atraumatic, normocephalic Eye exam: Present: normal appearance. Absent: scleral icterus, conjunctival injection ENT exam: Present: normal oropharynx Neck exam: Present: normal inspection, full ROM Respiratory exam: Present: normal lung sounds bilaterally. Absent: respiratory distress, wheezes, rales, rhonchi, stridor, accessory muscle use Cardiovascular Exam: Present: tachycardia, normal heart sounds. Absent: systolic murmur, diastolic murmur, rubs, gallop GI/Abdominal exam: Present: soft. Absent: distended, tenderness, guarding, rebound, rigid, mass Extremities exam: Present: normal inspection, normal capillary refill. Absent: pedal edema, calf tenderness Back exam: Present: normal inspection Neurological exam: Present: alert Skin exam: Present: warm, dry, intact, normal color. Absent: rash Course Vital Signs 10/13/24 10/13/24 10/13/24 03:46 03:52 04:59 Temperature 98.3 F Pulse Rate 150 H 142 H 142 H Pulse Rate [ 140 H Bilateral Radial] Respiratory 18 19 18 Rate Blood Pressure 135/86 145/99 117/73 O2 Sat by Pulse 98 97 96 Oximetry 10/13/24 10/13/24 06:00 06:40 Temperature 98.6 F Pulse Rate 72 75 Pulse Rate [ Bilateral Radial] Respiratory 18 17 Rate Blood Pressure 140/73 124/64 O2 Sat by Pulse 98 98 Oximetry EKG Findings - EKG Results: EKG: interpreted by ERMD - Blocks, [place], Hypertrophy, ST Abn: AV and intraventricular conduction: right bundle branch block (fixed/intermittent, complete/incomplete) (Possible incomplete right bundle branch) QRS axis and voltage: left axis deviation (-30 to -90) (Borderline) Repolarization changes or abnormalities: nonspecific abnormality, ST segment, and/or T wave Medical Decision Making - Medical Decision Making The patient had chest x-ray that I interpreted as negative for acute infiltrate, pneumothorax, congestive heart failure. Was pt. sent in by a medical professional or institution (, PA, HAM[employer]INE, urgent care, hospital, or snf...) When possible be specific @ -[No] Did you speak to anyone other than the patient for history (EMS, parent, family, police, friend...)? What history was obtained from this source @ -[No] Did you review nursing and triage notes (agree or disagree)? Why? @ -[I reviewed and agree with nursing and triage notes] Were old charts reviewed (outside hosp., previous admission, EMS record, old EKG, old radiological studies, urgent care reports/EKG's, snf records)? Report findings @ -[No old charts were reviewed] Differential Diagnosis (chest pain, altered mental status, abdominal pain women, abdominal pain men, vaginal bleeding, weakness, fever, dyspnea, syncope, headache, dizziness, GI bleed, back pain, seizure, CVA, palpatations, mental health, musculoskeletal)? @ -[not applicable] EKG interpreted by me (3pts min.). @ -[I interpreted as above] X-rays interpreted by me (1pt min.). @ -[I interpreted as above CT interpreted by me (1pt min.). @ -[None done] U/S interpreted by me (1pt. min.). @ -[None done] What testing was considered but not performed or refused? (CT, X-rays, U/S, labs)? Why? @ -[None] What meds were considered but not given or refused? Why? @ -[None] Did you discuss the management of the patient with other professionals (professionals i.e. , PA, [employer]ACHINE, lab, RT, psych nurse, rn social work, silviculturist, teacher, disbursing officer, case managers)? Give summary @ -[No] Was smoking cessation discussed for >3mins.? @ -[No] Was critical care preformed (if so, how long)? @ -[Yes, 30 minutes Were there social determinants of health that impacted care today? How? (Homelessness, low income, unemployed, alcoholism, drug addiction, transportation, low edu. Level, literacy, decrease access to med. care, skilled nursing, rehab)? @ -[No] Was there de-escalation of care discussed even if they declined (Discuss DNR or withdrawal of care, Hospice)? DNR status @ -[No] What co-morbidities impacted this encounter? (DM, HTN, Smoking, COPD, CAD, Cancer, CVA, ARF, Chemo, Hep., AIDS, mental health diagnosis, sleep apnea, morbid obesity)? @ -[None] Was patient admitted / discharged? Hospital course, mention meds given and route, prescriptions, significant lab abnormalities, going to OR and other pertinent info. @ -Patient is 79-year-old woman presenting with rapid heart rate which does appear to be SVT. The patient is given IV metoprolol which reverted her to sinus rhythm. The patient felt well and declined admission. She did want to go home and at this point seems stable for that. We discussed the appropriate further care and follow-up as well as return parameters. Undiagnosed new problem with uncertain prognosis? @ -[No] Drug Therapy requiring intensive monitoring for toxicity (Heparin, Nitro, Insulin, Cardizem)? @ -[IV metoprolol Were any procedures done? @ -[No] Diagnosis/symptom? @ -[Acute supraventricular tachycardia Acute, or Chronic, or Acute on Chronic? @ -[Acute Uncomplicated (without systemic symptoms) or Complicated (systemic symptoms)? @ -[Uncomplicated Side effects of treatment? @ -[No] Exacerbation, Progression, or Severe Exacerbation? @ -[No] Poses a threat to life or bodily function? How? (Chest pain, USA, SC, pneumonia, PE, COPD, DKA, ARF, appy, cholecystitis, CVA, Diverticulitis, Homicidal, Suicidal, threat to staff... and all critical care pts) @ -[Yes uncontrolled SVT may lead to cardiac ischemia or d degenerate to other arrhythmia All treatments are based on ideal body weight as in ED triage - Lab Data Result diagrams: 10/13/24 04:06 10/13/24 04:06 Lab Results 10/13/24 10/13/24 10/13/24 Range/Units 04:06 04:06 04:06 WBC 5.26 (4.50-10.00) 10*3/uL RBC 3.79 L (4.10-5.20) 10*6/uL Hgb 12.2 (12.0-15.0) g/dL Hct 37.6 (37.2-46.3) % MCV 99.2 H (80.0-97.0) fL MCH 32.2 H (27.0-32.0) pg MCHC 32.4 (32.0-37.0) g/dL Plt Count 212 (140-440) 10*3/uL MPV 9.5 (9.5-12.2) fL Immature Gran % (Auto) 0.2 % Neutrophils % 34.8 % Lymphocytes % 48.3 % Monocytes % 10.8 % Eosinophils % 5.5 % Basophils % 0.4 % Immature Gran # 0.01 (0.00-0.04) 10*3/uL Neutrophils # 1.83 (1.80-7.70) 10*3/uL Lymphocytes # 2.54 (0.90-5.00) 10*3/uL Monocytes # 0.57 (0.20-1.00) 10*3/uL Eosinophils # 0.29 (0.04-0.35) 10*3/uL Basophils # 0.02 (0.00-0.10) 10*3/uL PT 10.9 (10.0-12.5) sec INR 1.0 (<1.2) APTT 23.1 (22.0-30.0) sec Sodium 140 (137-145) mmol/L Potassium 4.1 (3.5-5.1) mmol/L Chloride 108 H (98-107) mmol/L Carbon Dioxide 22 (22-30) mmol/L Anion Gap 10 mmol/L BUN 33 H (7-17) mg/dL Creatinine 1.13 H (0.52-1.04) mg/dL Est GFR (CKD-EPI)AfAm 54 (>60 ml/min/1.73 sqM) Est GFR (CKD-EPI)NonAf 47 (>60 ml/min/1.73 sqM) Glucose 137 H (74-99) mg/dL Calcium 9.8 (8.4-10.2) mg/dL Magnesium 2.0 (1.6-2.3) mg/dL Total Bilirubin 0.7 (0.2-1.3) mg/dL AST 21 (14-36) U/L ALT 18 (4-34) U/L Alkaline Phosphatase 162 H (38-126) U/L Troponin I (0.000-0.034) ng/mL Total Protein 6.4 (6.3-8.2) g/dL Albumin 3.7 (3.5-5.0) g/dL // Range/Units 04:06 WBC (4.50-10.00) 10*3/uL RBC (4.10-5.20) 10*6/uL Hgb (12.0-15.0) g/dL Hct (37.2-46.3) % MCV (80.0-97.0) fL MCH (27.0-32.0) pg MCHC (32.0-37.0) g/dL Plt Count (140-440) 10*3/uL MPV (9.5-12.2) fL Immature Gran % (Auto) % Neutrophils % % Lymphocytes % % Monocytes % % Eosinophils % % Basophils % % Immature Gran # (0.00-0.04) 10*3/uL Neutrophils # (1.80-7.70) 10*3/uL Lymphocytes # (0.90-5.00) 10*3/uL Monocytes # (0.20-1.00) 10*3/uL Eosinophils # (0.04-0.35) 10*3/uL Basophils # (0.00-0.10) 10*3/uL PT (10.0-12.5) sec INR (<1.2) APTT (22.0-30.0) sec Sodium (137-145) mmol/L Potassium (3.5-5.1) mmol/L Chloride (98-107) mmol/L Carbon Dioxide (22-30) mmol/L Anion Gap mmol/L BUN (7-17) mg/dL Creatinine (0.52-1.04) mg/dL Est GFR (CKD-EPI)AfAm (>60 ml/min/1.73 sqM) Est GFR (CKD-EPI)NonAf (>60 ml/min/1.73 sqM) Glucose (74-99) mg/dL Calcium (8.4-10.2) mg/dL Magnesium (1.6-2.3) mg/dL Total Bilirubin (0.2-1.3) mg/dL AST (14-36) U/L ALT (4-34) U/L Alkaline Phosphatase (38-126) U/L Troponin I <0.012 (0.000-0.034) ng/mL Total Protein (6.3-8.2) g/dL Albumin (3.5-5.0) g/dL Disposition Clinical Impression: SVT (supraventricular tachycardia) Disposition: HOME SELF-CARE Condition: Good Instructions (If sedation given, give patient instructions): Heart Palpitations (ED) Is patient prescribed a controlled substance at d/c from ED?: No Referrals: Evette Landis DO [Primary Care Provider] - 1-2 days Frank Navarrete MD [STAFF PHYSICIAN] - 1-2 days
[2024-10-13 04:29] LABS: Basophils # (A) 0.02 10*3/uL (0.00-0.10); Basophils % (A) 0.4 %; Eosinophils # (A) 0.29 10*3/uL (0.04-0.35); Eosinophils % (A) 5.5 %; HCT 37.6 % (37.2-46.3); HGB 12.2 g/dL (12.0-15.0); Lymphocytes # (A) 2.54 10*3/uL (0.90-5.00); Lymphocytes % (A) 48.3 %; MCH 32.2 pg (27.0-32.0); MCHC 32.4 g/dL (32.0-37.0); MCV 99.2 fL (80.0-97.0); Monocytes # (A) 0.57 10*3/uL (0.20-1.00); Monocytes % (A) 10.8 %; Neutrophils # (A) 1.83 10*3/uL (1.80-7.70); Neutrophils % (A) 34.8 %; Platelet Count 212 10*3/uL (140-440); RBC 3.79 10*6/uL (4.10-5.20); RDW 14.1 % (11.5-14.5); WBC 5.26 10*3/uL (4.50-10.00)
[2024-10-13 04:39] LABS: INR 1.0 (<1.2); Partial Thromboplastin Time 23.1 sec (22.0-30.0); Prothrombin Time 10.9 sec (10.0-12.5)
[2024-10-13 04:57] LABS: ALT 18 U/L (4-34); AST 21 U/L (14-36); African American GFR (CKD) 54 (>60 ml/min/1.73 sqM); Albumin 3.7 g/dL (3.5-5.0); Alkaline Phosphatase 162 U/L (38-126); Anion Gap 10 mmol/L; Blood Urea Nitrogen 33 mg/dL (7-17); Calcium 9.8 mg/dL (8.4-10.2); Carbon Dioxide 22 mmol/L (22-30); Chloride 108 mmol/L (98-107); Glucose 137 mg/dL (74-99); Magnesium 2.0 mg/dL (1.6-2.3); Non-African American GFR(CKD) 47 (>60 ml/min/1.73 sqM); Potassium 4.1 mmol/L (3.5-5.1); Sodium 140 mmol/L (137-145); Total Protein 6.4 g/dL (6.3-8.2)
[2024-10-13] MEDS: METOPROLOL TARTRATE 5 MG/5 ML VIAL IVP STA ×2 (05:00→05:43)
[2024-10-13 06:08] VITALS: PULSE 75; RESP 17
[2024-10-13] MEDS: METOPROLOL TARTRATE 5 MG/5 ML VIAL IVP SCH (06:10)
--- NOTE | 2024-10-13 06:47 | XR ---
EXAM: XR Chest, 1 View CLINICAL HISTORY: Dysrhythmia TECHNIQUE: Frontal view of the chest. COMPARISON: Chest radiograph 09/17/2024 FINDINGS: Lungs: Left lower lobe pneumonia. Pleural space: Suspect small bilateral pleural effusions. No pneumothorax. Heart: Upper limits of normal cardiac silhouette. Mediastinum: Unremarkable. Normal mediastinal contour. Bones/joints: Left shoulder arthroplasty. Tubes, lines and devices: Stable implanted cardiac device. IMPRESSION: 1. Left lower lobe pneumonia. 2. Suspect small bilateral pleural effusions.
[2024-10-13 06:50] VITALS: BP 124/64; TEMP 98.6
== END 2024-10-13 06:45 | disposition home or self-care (01) ==
LOC: EC 03:42
DX: I47.10 Supraventricular tachycardia, unspecified (principal); Z88.8 Allergy status to other drugs, medicaments and biological substances
CPT/HCPCS: 36415; 93005; 80053; 83735; 84484; 85025; 85610; 85730; 71045; 99291; 96374; 96361; J0616; 96376